=== PATIENT | male | born 1950 | race Caucasian/White ===

== ENCOUNTER 2021-11-17 15:39 | Outpatient (CLI) | payer OTHER, SELFPAY ==
--- NOTE | 2021-11-17 16:15 | CRLHL7_ITS ---
For Patients: As a result of the Century Cures Act, medical imaging exams and procedure reports are released immediately into your electronic medical record. You may view this report before your referring provider. If you have questions, please contact your health care provider. INDICATION: Low back pain. TECHNIQUE: Sagittal and axial T1, sagittal axial T2 and sagittal STIR images were obtained. COMPARISON: Previous lumbar spine MRI dated 11/30/2015. FINDINGS: Sagittal alignment of the lumbar spine within normal limits. Slight convex right lumbar curve. Multilevel mild spondylosis. The distal cord/conus medullaris normal in morphology and signal intensity and terminates normally at the L1 level. No posterior disc herniation or stenosis at the T10-11 or T11-12 levels. At T12-L1 degenerative narrowing of the disc space with anterior marginal osteophytes. No posterior disc herniation or stenosis the spinal canal or neural foramen. At L1-2 degenerative disc desiccation no posterior disc herniation or stenosis the spinal canal or neural foramen. At L2-3 degenerative disc desiccation. Mild posterior endplate spurring and disc bulge to the left without stenosis the spinal canal mild left neural foraminal narrowing. At L3-4 degenerative narrowing of the disc space. Mild disc bulging and marginal spurring and Schmorl`s node endplate changes without stenosis the spinal canal or neural foramen. At L4-5 degenerative disc desiccation mild disc space narrowing Schmorl`s node endplate changes mild facet hypertrophy no stenosis the spinal canal or neural foramen. At L5-S1 degenerative narrowing of the disc space and disc desiccation minor posterior annular bulge without stenosis the spinal canal or neural foramen. The included portions of the upper sacroiliac joints are unremarkable. IMPRESSION: 1. Mild multilevel lumbar spondylosis as described above. 2. Mild disc bulging and marginal spurring at each level between T12 and S1 without high-grade central or lateral stenosis. 3. Schmorl`s node endplate changes L3-4 and L4-5. No acute compression fractures. Dictated by Jose Ramon Raygoza MD @ 11/18/2021 1:55:06 PM (Electronically Signed)
== END 2021-11-17 15:40 | disposition home or self-care (01) ==
PROVIDERS: PCP Internal Medicine; Visit Provider Physical Medicine & Rehabilitation Pain Medicine
DX: M54.50 Low back pain, unspecified (principal); M47.816 Spondylosis without myelopathy or radiculopathy, lumbar region; M51.24 Other intervertebral disc displacement, thoracic region; M51.46 Schmorl's nodes, lumbar region
CPT/HCPCS: 72148

== ENCOUNTER 2022-01-12 06:59 | Outpatient (CLI) | payer OTHER, SELFPAY ==
--- NOTE | 2022-01-12 09:17 | W.ANESCHARGE ---
Anesthesia Charges Start Date/Time Anesthesia Start Date: 01/12/22 Anesthesia Start Time: 08:10 Stop Date/Time Anesthesia Stop Date: 01/12/22 Anesthesia Stop Time: 09:15 Summary Emergency: No Extremes of Age: Over 70-CPT 50952
--- NOTE | 2022-01-12 10:00 | W.ANESCHARGE ---
Anesthesia Charges Start Date/Time Anesthesia Start Date: 01/12/22 Anesthesia Start Time: 08:10 Stop Date/Time Anesthesia Stop Date: 01/12/22 Anesthesia Stop Time: 09:15 Summary Emergency: No Extremes of Age: Over 70-CPT 40265
== END 2022-01-12 07:00 | disposition home or self-care (01) ==
LOC: OP CLINIC 07:00
PROVIDERS: PCP Internal Medicine; Visit Provider Surgery
DX: Z12.11 Encounter for screening for malignant neoplasm of colon (principal); R10.32 Left lower quadrant pain; K64.9 Unspecified hemorrhoids; K63.5 Polyp of colon; K62.1 Rectal polyp; K57.30 Diverticulosis of large intestine without perforation or abscess without bleeding
CPT/HCPCS: 00811; 45385; 88305; 99100

== ENCOUNTER 2022-03-19 17:49 | Emergency (ER) | payer OTHER, SELFPAY ==
[2022-03-19 17:57] VITALS: BP 189/124; PULSE 109; RESP 24; TEMP 36.5; O2SAT 97; BMI 31.1
[2022-03-19] MEDS: IBUPROFEN 200 MG TABLET 400 MG PO (18:31)
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
--- NOTE | 2022-03-19 18:55 | ED.NURSE ---
[facility] EDT cleansed wounds with saline. covered with bacitracin, telfa and gauze to bilateral hands and back and top of head.
[2022-03-19 19:23] VITALS: BP 171/110; PULSE 97; O2SAT 99
== END 2022-03-19 20:22 | disposition home or self-care (01) ==
PROVIDERS: Emergency Provider Emergency Medicine; PCP Internal Medicine
DX: T23.202A Burn of second degree of left hand, unspecified site, initial encounter (principal); T23.201A Burn of second degree of right hand, unspecified site, initial encounter; T20.25XA Burn of second degree of scalp [any part], initial encounter; X00.0XXA Exposure to flames in uncontrolled fire in building or structure, initial encounter
CPT/HCPCS: 99283; 99284; A9270

== ENCOUNTER 2023-02-06 12:46 | Outpatient (CLI) | payer OTHER, SELFPAY ==
--- NOTE | 2023-02-06 13:00 | CRLHL7_ITS ---
For Patients: As a result of the Century Cures Act, medical imaging exams and procedure reports are released immediately into your electronic medical record. You may view this report before your referring provider. If you have questions, please contact your health care provider. Indication: Lumbar radicular pain Technique: Multiplanar, multisequence, MRI of the lumbar spine, obtained without contrast. Comparison: MRI lumbar spine 11/17/2021 Findings: The normal lumbar lordosis is preserved. No significant spondylolisthesis. Vertebral body heights are grossly maintained. No evidence of acute osseous abnormality. Scattered degenerative Schmorl`s nodes. Intrinsic bone marrow signal appears within normal limits. The conus medullaris terminates at approximately L1. No suspicious findings in the prevertebral and paraspinal soft tissues. Incidental bilateral renal cysts. Included SI joints are unremarkable. T12-L1: Mild diffuse disc bulge. No significant neural foraminal or spinal canal stenosis. L1-L2: No significant neural foraminal or spinal canal stenosis. L2-L3: Mild diffuse disc bulge, mild facet arthropathy. Mild left neural foraminal narrowing. No right neural foraminal or spinal canal stenosis. L3-L4: Mild diffuse disc bulge. No significant neural foraminal or spinal canal stenosis. L4-L5: Mild diffuse disc bulge, mild facet arthropathy. Mild right neural foraminal narrowing. No left neural foraminal or spinal canal stenosis. L5-S1: No significant neural foraminal or spinal canal stenosis. Impression: 1. Mild lumbar spondylosis, not significantly progressed relative to 11/17/2021. 2. Degenerative disc changes and facet arthropathy contribute to mild neural foraminal narrowing, without significant spinal canal stenosis. Dictated by Flaquita Luna MD @ 02/06/2023 1:48:22 PM (Electronically Signed)
== END 2023-02-06 12:47 | disposition home or self-care (01) ==
LOC: MRI 12:50
PROVIDERS: PCP Internal Medicine; Visit Provider Physical Medicine & Rehabilitation Pain Medicine
DX: M54.16 Radiculopathy, lumbar region (principal); M47.896 Other spondylosis, lumbar region; M51.36 Other intervertebral disc degeneration, lumbar region
CPT/HCPCS: 72148; 97110; 97112; 97140; 97162

== ENCOUNTER 2023-03-19 09:45 | Outpatient (RCR) | payer OTHER, SELFPAY | END 2023-05-30 07:43 | disposition home or self-care (01) | PROVIDERS: PCP Internal Medicine; Visit Provider Physical Medicine & Rehabilitation Pain Medicine | DX: M54.50 Low back pain, unspecified (principal); M54.16 Radiculopathy, lumbar region; Z51.89 Encounter for other specified aftercare | CPT/HCPCS: 97032; 97110; 97112; 97140; 97162 ==

== ENCOUNTER 2023-04-03 15:25 | Outpatient (CLI) | payer OTHER, SELFPAY ==
[2023-04-03 15:57] LABS: Creatinine* 0.9 mg/dL (0.5-1.5); Estimated Glomerular Filt Rate 91 ml/min
== END 2023-04-03 15:26 | disposition home or self-care (01) ==
LOC: CT 15:26
PROVIDERS: PCP Internal Medicine; Visit Provider Internal Medicine
DX: R10.9 Unspecified abdominal pain (principal); K43.9 Ventral hernia without obstruction or gangrene
CPT/HCPCS: 36415; 82565

== ENCOUNTER 2023-04-05 09:47 | Outpatient (CLI) | payer OTHER, SELFPAY ==
--- NOTE | 2023-04-05 09:55 | CRLHL7_ITS ---
For Patients: As a result of the Century Cures Act, medical imaging exams and procedure reports are released immediately into your electronic medical record. You may view this report before your referring provider. If you have questions, please contact your health care provider. INDICATION: Abdominal pain. TECHNIQUE: CT abdomen and pelvis acquired with 95 cc Isovue 370 IV contrast. COMPARISON: October 31, 2021. FINDINGS: Lower chest: Unremarkable. Liver: Unremarkable. Normal in size and attenuation. No suspicious masses. Gallbladder and bile ducts: Multiple small gallbladder stones. No sign of acute inflammation and no biliary dilatation. Pancreas: Unremarkable. No mass or inflammation. Spleen: Unremarkable. Normal in size. No masses. Adrenal glands: Unremarkable. No nodules. Kidneys: Unremarkable. No suspicious masses, stones, or hydronephrosis. GI tract: Unremarkable. Normal in caliber. No sign of mass or inflammation. Normal appendix. Vasculature: Abdominal aorta is normal in caliber. Mesenteric arteries are patent. Lymph nodes: No lymphadenopathy. Peritoneum/Abdominal Wall: Unremarkable. No sign of mass or infiltration. No free air or significant free fluid. Pelvis: Enlarged heterogeneous prostate gland. Fat containing right inguinal hernia extending into the scrotum, unchanged. Remainder of the pelvic structures are unremarkable. Bones: No suspicious bone lesions. IMPRESSION: 1. No acute or specific findings to explain abdominal pain. 2. Unchanged fat containing ventral hernia extending into the scrotum. 3. Persistent prostatomegaly. Please note that all CT scans at this facility use dose modulation, iterative reconstruction, and/or weight-based dosing when appropriate to reduce radiation dose to as low as reasonably achievable. Dictated by Patrick Peres MD @ 04/06/2023 11:05:52 AM (Electronically Signed)
== END 2023-04-05 09:48 | disposition home or self-care (01) ==
LOC: CT 09:50
PROVIDERS: PCP Internal Medicine; Visit Provider Internal Medicine
DX: R10.9 Unspecified abdominal pain (principal); K43.9 Ventral hernia without obstruction or gangrene; N40.0 Benign prostatic hyperplasia without lower urinary tract symptoms
CPT/HCPCS: 74177; Q9967

== ENCOUNTER 2023-07-27 09:09 | Outpatient (CLI) | payer MEDICARE, SELFPAY ==
--- NOTE | 2023-07-27 10:00 | W.ANESCHARGE ---
Anesthesia Charges Start Date/Time Anesthesia Start Date: 07/27/23 Anesthesia Start Time: 10:25 Stop Date/Time Anesthesia Stop Date: 07/27/23 Anesthesia Stop Time: 11:01 Summary Extremes of Age - Over 70 or under 1: MDA
--- NOTE | 2023-07-27 11:02 | W.ANESCHARGE ---
Anesthesia Charges Start Date/Time Anesthesia Start Date: 07/27/23 Anesthesia Start Time: 10:25 Stop Date/Time Anesthesia Stop Date: 07/27/23 Anesthesia Stop Time: 11:01
== END 2023-07-27 09:10 | disposition home or self-care (01) ==
LOC: OP CLINIC 09:10
PROVIDERS: PCP Internal Medicine; Visit Provider Internal Medicine
DX: R13.10 Dysphagia, unspecified (principal); Z86.010 Personal history of colon polyps; K64.8 Other hemorrhoids; K57.30 Diverticulosis of large intestine without perforation or abscess without bleeding
CPT/HCPCS: 00813; 43239; 45378; 88305; 99100; J2704

== ENCOUNTER 2023-09-11 07:01 | Outpatient (CLI) | payer MEDICARE, SELFPAY ==
--- OUTSIDE RECORDS SUMMARY | 2023-09-11 07:03 | XMS_ITS | Encounter Summary ---
Author Name [facility] [employer] Organization [facility] Address [address] [place] [address] Support Name Relationship Address Phone NIVIA GAITAN Next of Kin [address] [place] [address] ARNIE, NIVIA Emergency Contact [address] [place], [place] [id number] Insurance Providers: All historical and current Section Date Range: From patient's date of to the date document was created. This section includes the names of all active insurance providers for the patient. Insurance Provider Type of Coverage Plan Name Start of Policy Coverage End of Policy Coverage Group Number Member ID Insurance Provider's Telephone Number Policy Rodriguez's Name Patient's Relationship to Policy Rodriguez [facility] (WNR) MEDICARE ADVANTAGE [facility] ([facility]) May 07, 2018 [id number] [phone] ANJU BAIG PATIENT [employer] [facility] (WNR) MEDICARE ADVANTAGE [facility] ([facility]) May 07, 2021 [id number] [phone] ANJU BAIG PATIENT [employer] [facility] (WNR) MEDICARE ADVANTAGE [facility] (R) May 07, 2019 [id number] [phone] ANJU BAIG PATIENT [employer] [facility] (WNR) MEDICARE ADVANTAGE [facility] ([facility]) May 07, 2019 [id number] ANJU BAIG PATIENT [employer] [facility] (WNR) MEDICARE ADVANTAGE [facility] ([facility]) May 07, 2019 [id number] JVOANNI ANJU PATIENT Selected Encounter This section includes the information on record at [place] for the Encounter. Date/Time Encounter Type Encounter Description Reason Provider Source Jun 13, 2023 08:30 AM OFFICE O/P EST MOD 30 MIN PRIMARY CARE/MEDICINE ICD-10-CM Z00.8 Encounter for other general examination VIOLETA LOMBARDI Yec[place] Encounter Template Text not used by VA Assessments - Encounter Diagnoses This section includes the primary and secondary diagnoses documented for the Encounter. Date/Time Primary/Secondary Diagnosis Diagnosis Name Provider Source Jun 13, 2023 09:09 AM PRIMARY Encounter for other general examination VIOLETA LOMBARDI [facility] Jun 13, 2023 09:09 AM SECONDARY Encounter for immunization ELIZABETH CARRILLO [facility] Jun 13, 2023 09:09 AM SECONDARY Essential (primary) hypertension VIOLETA LOMBARDI [facility] Jun 13, 2023 09:09 AM SECONDARY Gastro-esophageal reflux dis with esophagitis, without bleed VIOLETA LOMBARDI [facility] Jun 13, 2023 09:09 AM SECONDARY Low back pain, unspecified VIOLETA LOMBARDI [facility] Plan of Treatment: Future Appointments (+ 6 months) and Future Tests (+/- 45 days) The Plan of Treatment section includes future care activities for the [facility] This section includes future appointments and future orders which are active, pending or scheduled. Future Appointments This section includes appointments that were scheduled to occur 6 months from the date of the Encounter, up to a maximum of 20 appointments. The data comes from all [place] treatment facilities. Appointment Date/Time Appointment Type Appointme nt Facility Name Jul 04, 2023 10:30 AM AMBULATORY - NONE [facility] Jul 13, 2023 10:00 AM AMBULATORY - NONE [facility] Lab Results: +/- 30 days of the encounter This section includes the Chemistry and Hematology Lab Results on record with NE for the patient. Radiology Reports and Pathology Reports are provided separately, in subsequent sections. Lab Results This section contains the Chemistry/Hematology Results that were resulted 30 days before or 30 daysafter the date of the Encounter. Date/Time Source Result Type Result - Unit Interpretation Reference Range Comment Jun 13, 2023 09:08 AM [facility] HEMOGLOBIN A1C Specimen Type: BLOOD Comment: Values obtained from A1C measurements can vary. For typical A1C assays, a reported value of 7.0 could actually be between 6.7 and 7.3 if measured by a reference method. A reported value of 9.0 could actually be between 8.7 and 9.3. Ref: http://www.ngs p.org/CAPdata. asp Ordering Provider: VIOLETA LOMBARDI Report Released Date/Time: Jun 13, 2023 09:00 AM Reporting Lab: [facility] [id number] Performing Lab: [facility] [id number] HEMOGLOBIN A1C 5.4 4.0-6.0 Jun 13, 2023 09:08 AM [facility] CBC & DIFF Specimen Type: BLOOD Comment: Automated Differential Performed Ordering Provider: VIOLETA LOMBARDI Report Released Date/Time: Jun 13, 2023 09:00 AM Reporting Lab: [facility] [id number] Performing Lab: [facility] [id number] WBC 7.58 4.0-11.0 RBC 5.02 4.6-6.2 HGB 15.5 13.5-17.9 HCT 44.2 41-54 MCV 88.0 80-100 MCH 30.9 27-33 MCHC 35.1 32.0-37.5 PLT 463 H 150-400 MPV 8.7 7.4-10.4 NEUT 64.7 40.0-80.0 LYMPHS 22.7 15.0-45.0 MONO 7.0 2.0-12.0 EOSINO 4.0 0.0-6.0 BASO 1.2 0.0-2.0 RDW 12.6 11.5-14.5 ABS LYMPH 1.72 1.0-4.0 ABS MONO 0.53 0.1-1.0 ABS NEUT 4.91 2.0-7.7 ABS EOS 0.30 0-0.5 ABS BASO 0.09 0-0.2 IG(META,MYELO,P RO) 0.4 ABS IMMATURE GRAN 0.03 0-0.1 Jun 13, 2023 09:08 AM [facility] COMPREHENSIVE METABOLIC PANEL+MG Specimen Type: PLASMA No comment entered. Ordering Provider: VIOLETA LOMBARDI Report Released Date/Time: Jun 13, 2023 09:00 AM Reporting Lab: [facility] [id number] Performing Lab: [facility] [id number] CREATININE 0.8 0.7-1.2 UREA NITROGEN 11 8-26 GLUCOSE 107 H 70-100 SODIUM 139 136-145 POTASSIUM 4.0 3.5-5.1 CHLORIDE 104 98-107 CO2 22 22-29 CALCIUM 9.4 8.4-10.2 PROTEIN,TOTAL 7.2 6.0-8.3 ALBUMIN 4.3 3.5-5.2 BILIRUBIN, TOTAL 0.5 0.2-1.2 MAGNESIUM 1.9 1.6-2.6 ANION GAP 13 5-15 ALKALINE PHOSPHATASE 69 40-150 ALT/SGPT 22 <55 AST/SGOT 17 <34 .CREAT EGFR(CKD-EPI) >90 >60 Vital Signs: All taken on the encounter date This section contains inpatient and outpatient Vital Signs collected on the date of the Encounter. Date/Time Temperature Pulse Blood Pressure Respiratory Rate SP02 Pain Height Weight Body Mass Index Source Jun 13, 2023 08:42 AM 97.7 72 137/84 16 98 0 64.5 195.3 33 [facility] Immunizations: All administered on the encounter date This section contains immunizations associated to the Encounter. Immunization Series Date Issued Reaction Comments COVID-19 (PFIZER), MRNA, LNP -S, PF, LEANA-SUCROSE, 30 MCG/0.3 ML (AGES 12+ YEARS) Jun 13, 2023 Social History: Smoking Status (Most current) and Tobacco Use (All prior to encounter date) This section includes the most current, and the historical, smoking and tobacco- related health factors from the NE facility where the Encounter took place. Current Smoking Status This section includes the most current smoking, or tobacco-related health factor, from the NE facility where the Encounter took place. Date/Time Current Smoking Status Comment Dafne ity Jun 13, 2023 08:30 AM VA-TOBACCO FORMER USER [facility] Tobacco Use History This section includes a history of the smoking, or tobacco-related health factors, that were collected on or before the date of the Encounter. The data comes from the NE facility where the Encounter took place. Date/Time Smoking Status/Tobacco Use Comment F acility Jun 13, 2023 08:30 AM VA-TOBACCO QUIT 15 YRS OR MORE [facility] Jun 05, 2022 08:30 AM VA-TOBACCO FORMER USER [facility] Jun 05, 2022 08:30 AM VA-TOBACCO QUIT 15 YRS OR MORE [facility] Jun 08, 2021 08:30 AM VA-TOBACCO FORMER USER [facility] Jun 08, 2021 08:30 AM VA-TOBACCO QUIT 15 YRS OR MORE [facility] Jun 11, 2020 10:00 AM VA-TOBACCO NEVER USED [facility] Jun 05, 2019 10:23 AM VA-TOBACCO FORMER USER [facility] Jun 05, 2019 10:23 AM VA-TOBACCO QUIT 15 YRS OR MORE [facility] Jun 26, 2018 09:55 AM VA-TOBACCO FORMER USER [facility] Jun 26, 2018 09:55 AM VA-TOBACCO QUIT 15 YRS OR MORE [facility] May 24, 2017 09:03 AM FORMER TOBACCO USER 7Y OR GREATE R [facility] Apr 19, 2016 04:36 AM FORMER TOBACCO USER 7Y OR GREATE R [facility] Apr 23, 2015 05:01 AM FORMER TOBACCO USER 7Y OR GREATE R [facility] Jun 15, 2014 10:00 AM FORMER TOBACCO USER 7Y OR GREATE R [facility] Advance Directives: All historical and current Section Date Range: From patient's date of to the date document was created. This section includes ALL of a patient's completed or amended VA Advance and Rescinded Directives. The entries below indicate that a directive exists for the patient, but an actual copy is not included with this document. The data comes from all [place] facilities. Date Advance Directives Provider Source September 22, 2021 ADVANCE DIRECTIVE RICHARD PLASCENCIA [facility] September 22, 2021 ADVANCE DIRECTIVE DISCUSSION ROBERTO PLASCENCIA [facility] Sep 01, 2016 ADVANCE DIRECTIVE DISCUSSION ROBERTO PLASCENCIA [facility] Sep 01, 2016 ADVANCE DIRECTIVE RICHARD PLASCENCIA [facility] Encounter Notes: All associated encounter notes This section contains the clinical notes associated to the Encounter. Date/Time Encounter Note(s) Provider Source Jun 14, 2023 08:17 AM LETTERS: LOCAL TITLE: FOLLOW UP RESULTS LETTER STANDARD TITLE: LETTERS DATE OF NOTE: JUN 14, 2023@08:17 ENTRY DATE: JUN 14, 2023@08:17:35 AUTHOR: JOSE LOMBARDI COSIGNER: URGENCY: STATUS: COMPLETED [facility] [address] [place] [address] Jun ANJU BAIG [id number] [address] [facility] [id number] Dear : I am writing to inform you of the results of testing that you had done recently at the [facility]. - Complete Blood Count (red/white blood cell counts and platelets) White count: WBC 7.58 (06/13/23) (normal is 4.0-11.0) Hemoglobin: HGB 15.5 (06/13/23) (normal Male is 13.5-17.9; Female is 11.5-16) Hematocrit: HCT 44.2 (06/13/23) (normal Male is 41-54; Female is 34.5-48) Platelets: PLT 463 H (06/13/23) (normal is 150-400) - Electrolytes including sodium and potassium SODIUM 139 (06/13/23) (normal is 136-145) POTASSIUM 4.0 (06/13/23) (normal is 3.5-5.1) - Calcium CALCIUM 9.4 (06/13/23) (normal is 8.5-10.1) - Kidney function CREATININE 0.8 (06/13/23)(normal Male = less than 1.2; normal Female = less than 1.0)) UREA NITROGEN 11 (06/13/23) (normal Male is 8-26; normal Female is 10-20) - Blood Sugar GLUCOSE 107 H (06/13/23) (normal is 70 - 100 if fasting) - Liver function Tests AST/SGOT 17 (06/13/23) (normal 15-37) ALT/SGPT 22 (06/13/23) (normal 13-61) ALK PHOSPHATASE 69 (06/13/23) (normal 45-117) BILIRUBIN, TOTAL 0.5 (06/13/23) (normal 0.2-1.0) - Hemoglobin A1C (normal 4.0-6.0) Collection DT Spec HGBA1C 06/13/2023 09:08 BLOOD 5.4 06/08/2021 09:18 BLOOD 5.6 07/15/2018 09:49 BLOOD 5.6 Additional Comments: Everything looks good. If you have any further questions or problems, please contact our nursing staff or provider at the following number: [phone]. Sincerely, JOSE LOMBARDI PHYSICIAN JO[facility] LOMBARDI [facility] Jun 13, 2023 09:10 AM MEDICATION MGT NOTE: LOCAL TITLE: MEDICATION RECONCILIATION NOTE STANDARD TITLE: MEDICATION MGT NOTE DATE OF NOTE: JUN 13, 2023@09:10 ENTRY DATE: JUN 13, 2023@09:10:32 AUTHOR: JOSE LOMBARDI EXP COSIGNER: URGENCY: STATUS: COMPLETED MEDICATION RECONCILIATION Active Outpatient Medications (excluding Supplies): Outpatient Medications Status ======= 1) AMLODIPINE BESYLATE 10MG TAB TAKE ONE-HALF TABLET BY PENDING MOUTH EVERY DAY FOR BLOOD PRESSURE 2) CARBOXYMETHYLCELLULOSE NA 0.5%(PF)OP FARIBA INSTILL 1 ACTIVE DROP IN BOTH EYES FOUR TIMES A DAY 3) IBUPROFEN 800MG TAB TAKE ONE TABLET BY MOUTH THREE PENDING TIMES A DAY NEEDED FOR PAIN -TAKE WITH FOOD 4) KETOTIFEN 0.025% OPH SOLN INSTILL 1 DROP IN BOTH EYES ACTIVE TWICE A DAY 5) PRAVASTATIN NA 40MG TAB TAKE ONE TABLET BY MOUTH AT PENDING BEDTIME FOR CHOLESTEROL - REPLACES ATORVASTATIN PRESCRIPTION Non-VA Medications Status ======= 1) Non-VA BUDESONIDE 32MCG 120D NASAL INHL 2 PUFFS EACH ACTIVE NOSTRIL NEEDED 6 Total Medications Medications listed above are accurate and should continue as ordered. /es/ JOSE LOMBARDI PHYSICIAN Signed: 06/13/2023 09:10 [facility] Jun 13, 2023 08:53 AM H & P NOTE: LOCAL TITLE: [facility] ANNUAL VISIT STANDARD TITLE: H & P NOTE DATE OF NOTE: JUN 13, 2023@08:53 ENTRY DATE: JUN 13, 2023@08:53:43 AUTHOR: JOSE LOMBARDI EXP COSIGNER: URGENCY: STATUS: COMPLETED Annual visit Non [place] [facility]iders: [facility] Chief complaint: Patient is here for a routine annual visit. HPI: patinet s doing well. NO new concrns. Is having rdaio ablation later this wek of low back nercs at [facility]. Assessment/Plan: 1. routine labs today 2. ophtho sees rgularly 3. dentist ses regularly 4. Audio bilata ides had th eleft one repaired recently 5. Medicaitosn reviewed, renewed Labs and medications reviewed with patient. Discussed plan of care, patient verbalized understanding and agrees with plan. FU in 1 year for annual exam, sooner with any concerns. Clinical Reminders: none Past Medical History: Computerized Problem List is the source for the followin. Pain in left knee (SNOMED CT [id number]) ACTIVE 2. Hyperlipidemia (SNOMED CT [id number]) ACTIVE 3. Screening for Malignant Neoplasms of colon ACTIVE colonoscopy 09/09--> hyperplastic polyp 4. Osteoarthritis, Knee ACTIVE 5. Dyslipidemia ACTIVE 6. Allergic rhinitis ACTIVE 7. Allergic asthma ACTIVE 8. Health maintenance alteration ACTIVE 9. Acute back pain with sciatica ACTIVE 10. Low back pain ACTIVE 11. Paresthesia of foot (SNOMED CT [id number]) ACTIVE 12. Schmorl's nodes of lumbar region ACTIVE 13. Plantar fasciitis of right foot ACTIVE 14. Tibialis posterior tendinitis ACTIVE 15. Enthesopathy of foot region ACTIVE 16. cervical laminoplasty ACTIVE 17. Gastro-esophageal reflux disease with esophagitis ACTIVE 18. 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 NEURO: neg for new motor or sensory complains SKIN: neg for new rash, lesion Physical Exam: Vitals: Blood Pressure: 137/84 (06/13/2023 08:42) Pulse: 72 (06/13/2023 08:42) Pulse Oximetry: 98% (06/13/2023 08:42) Resp: 16 (06/13/2023 08:42) Temp: 97.7 F [36.5 C] (06/13/2023 08:42) Height: 64.5 in [163.8 cm] (06/13/2023 08:42) Weight: 195.3 lb [88.59 kg] (06/13/2023 08:42) BMI:33.1 GENERAL:well developed, well nourished pt in nad. EYES:PERRLA,EOMI, conjuntiva clear, no discharge,wears glasses. EARS:canals clear, TMs intact NOSE:Nostrils patent, no discharge, THROAT:No enlarged tonsils, no inflammation, no exudate or ulcers. NECK: supple, no obvious thyromegaly HEART:Regular rate and rhythm , no obvious murmurs/rubs RESPIRATORY: Lungs clear to auscultation b/l, no rales or wheezes. ABDOMEN:soft, nontender, nondistended, no organomegaly, normal bs. MSK:normal gait, moves all extremities, no joints swelling, rom normal. NEURO:alert and oriented, cranial nerves II-XII intact, speech clear, strength equal b/l, normal gait and movement, PSYCH: normal affect, well groomed SKIN:warm adn dry, normal color, no rash or suspicious lesions, multipel flat freckes in neck region EXT: no cyanosis, no edema lower ext b/l Allergies: INFLUENZA (September 20, 2004) MORPHINE (Nov 14, 2006) SULFA DRUGS (Nov 14, 2006) PENICILLIN (Nov 20, 2006) SLT - Lab Tests Selected No data available for: REGIONAL ALLERGY PROFILE Vaccinations: IM - Immunizations ADMINISTERED Immunization Series Date Facility Reaction Info COVID-19 ([employer] [employer]), MRNA, LNP-S, * 1 06/05/2022 [place] * COVID-19 (PFIZER), MRNA, LNP-S, * 3 03/11/2021 [place]* <C> COVID-19 (PFIZER), MRNA, LNP-S, * 2 07/07/2020 [place]* <C> COVID-19 (PFIZER), MRNA, LNP-S, * 1 06/16/2020 [place]* <C> COVID-19 (PFIZER), MRNA, LNP-S, * 4 09/20/2021 [place] * <C> INFLUENZA (HISTORICAL) [place]* INFLUENZA, HIGH DOSE SEASONAL 02/10/2020 [facility] [facility] INFLUENZA, HIGH DOSE SEASONAL 02/10/2019 [facility] [facility] INFLUENZA, HIGH DOSE SEASONAL 02/08/2018 [facility] [facility] INFLU[place], HIGH DOSE SEASONAL 03/02/2017 [facility] [facility] INFLUENZA, HIGH DOSE SEASONAL 02/27/2017 [facility] [facility] INFLUENZA, HIGH DOSE SEASONAL 03/14/2016 [facility] [facility] INFLUENZA, HIGH-DOSE, QUADRIVALE* 03/26/2023 [facility] [facility] INFLUENZA, HIGH-DOSE, QUADRIVALE* 01/26/2021 No Site <C> INFLUENZA, INJECTABLE, QUADRIVAL* 04/08/2009 [facility] [facility] INFLUENZA, UNSPECIFIED FORMULATI* [place]* INFLUENZA, UNSPECIFIED FORMULATI* 02/10/2020 [place]* NOVEL [id number], ALL FOR* 04/08/2009 [facility] [facility] PNEUMOCOCCAL CONJUGATE PCV 13 06/15/2016 [facility] [facility] PNEUMOCOCCAL CONJUGATE PCV 13 [place]* PNEUMOCOCCAL POLYSACCHARIDE PPV23 06/22/2022 [place] * PNEUMOCOCCAL POLYSACCHARIDE PPV23 No Site <C> PNEUMOCOCCAL POLYSACCHARIDE PPV23 07/02/2014 [facility] [facility] PNEUMOCOCCAL POLYSACCHARIDE PPV23 05/29/2000 [facility] [facility] TD(ADULT) UNSPECIFIED FORMULATION [place]* TDAP 06/15/2016 [place]* TDAP Private m* ZOSTER LIVE [employer]* ZOSTER RECOMBINANT 2 09/18/2018 [place] * ZOSTER RECOMBINANT 1 07/15/2018 [place] * CONTRAINDICATED No data available REFUSED ======= No data available <C> See the Detailed Immunizations Health Summary Component[DIM] for Comments * Value is truncated; see the Detailed Immunizations Health Summary Component [DIM] for complete text ====== Labs: pending /jody/ JOSE LOMBARDI PHYSICIAN Signed: 06/13/2023 09:10 [facility] Jun 13, 2023 08:44 AM PRIMARY CARE NURSING NOTE: LOCAL TITLE: [facility] NURSING PROGRESS NOTE STANDARD TITLE: PRIMARY CARE NURSING NOTE DATE OF NOTE: JUN 13, 2023@08:44 ENTRY DATE: JUN 13, 2023@08:44:43 AUTHOR: ELIZABETH CARRILLO EXP COSIGNER: URGENCY: STATUS: COMPLETED TYPE OF VISIT: Appointment Check In Type of appointment: In-person appointment REASON FOR VISIT: Annual ALLERGIES: INFLUENZA (September 20, 2004) MORPHINE (Nov 14, 2006) SULFA DRUGS (Nov 14, 2006) PENICILLIN (Nov 20, 2006) VITAL SIGNS: Blood Pressure: 137/84 (06/13/2023 08:42) Pulse: 72 (06/13/2023 08:42) Respiration: 16 (06/13/2023 08:42) Temperature: 97.7 F [36.5 C] (06/13/2023 08:42) Weight: 195.3 lb [88.59 kg] (06/13/2023 08:42) Height: 64.5 in [163.8 cm] (06/13/2023 08:42) BMI: 33.1 O2 Sat: 98% (06/13/2023 08:42) Pain: 0 (06/13/2023 08:42) PAIN SCREEN: Patient is not having significant pain that they wish to discuss with their provider today. MEDICATION Active Outpatient Medications (including Supplies): CARBOXYMETHYLCELLULOSE NA 0.5%(PF)OP FARIBA INSTILL 1 DROP IN ACTIVE BOTH EYES FOUR TIMES A DAY KETOTIFEN 0.025% OPH SOLN INSTILL 1 DROP IN BOTH EYES ACTIVE TWICE A DAY Non-VA BUDESONIDE 32MCG 120D NASAL INHL 2 PUFFS EACH ACTIVE NOSTRIL NEEDED Over the Counter/Herbal Medications: The patient states that they take some outside medications and/or herbals. ADV DIR Notification and Screening: ADVANCE DIRECTIVE NOTIFICATION: Patient was given written notification of the following rights: 1. Accept or refuse any medical treatment. 2. Complete a durable power of attorney law clerk for health care. 3. Complete a living will. ADVANCE DIRECTIVE SCREENING: Does patient have an Advance Directive? The patient has an Advance Directive. Does the patient wish to make any changes or revoke their current Advance Directive? No changes requested at this time. Suicide Screen: C-SSRS Screening [place] Suicide Severity Rating Scale (C-SSRS) screener 1. Over the past month, have you wished you were or wished you could go to sleep and not wake up? No 2. Over the past month, have you had any actual thoughts of killing yourself? No 3. Over the past month, have you been thinking about how you might do this? Response not required due to responses to other questions. 4. Over the past month, have you had these thoughts and had some intention of acting on them? Response not required due to responses to other questions. 5. Over the past month, have you started to work out or worked out the details of how to kill yourself? Response not required due to responses to other questions. 6. If yes, at any time in the past month did you intend to carry out this plan? Response not required due to responses to other questions. 7. In your lifetime, have you ever done anything, started to do anything, or prepared to do anything to end your life (for example, collected pills, obtained a gun, gave away valuables, went to the roof but didn't jump)? No 8. If YES, was this within the past 3 months? Response not required due to responses to other questions. Depression Screening: Perform PHQ-2 A PHQ-2 screen was performed. The score was 0 which is a negative screen for depression. Over the past two weeks, how often have you been bothered by the following problems? 1. Little interest or pleasure in doing things Not at all 2. Feeling down, depressed, or hopeless Not at all Alcohol Use Screen (AUDIT-C): Alcohol Screen: SCREEN FOR ALCOHOL (AUDIT-C) An alcohol screening test (AUDIT-C) was negative (score=2). 1. How often did you have a drink containing alcohol in the past year? Consider a drink to be a 12 ounce can or bottle of regular beer, 8 ounces of malt liquor, a 5 ounce glass of table wine, or a 1.5 ounce shot of liquor (like scotch, gin, or vodka). Two to four times a month 2. How many drinks containing alcohol did you have on a typical day when you were drinking in the past year? One or two drinks 3. How often did you have six or more drinks on one occasion in the past year? Never Tobacco Use Screening: The patient is a former tobacco user. The patient quit fifteen or more years ago. 24yrs Nursing Annual Screening: Fall History Screen During the past 12 months, have you had any falls? Patient does not report any falls in the past 12 months. MEDICATIONS: Patient does not have an active prescription for one of the following medications: Antihypertensives, Antidepressants, Antipsychotics, Diuretics, or Opioid Analgesics (Contolled Substance medications used for pain). Script Talk Screen Are you able to read your prescription bottles with your glasses, magnifiers or other aids? Yes or patient not taking any prescriptions. Skin Screen Patient reports any current pressure ulcers, a history of pressure ulcers, or a wound from a medical dermatologist or Patient is bed-confined or a wheelchair-user or Patient requires assistance to transfer/change position No, Skin Screen is Negative Home Abuse/Violence Screen Is your home free of abuse and violence? Yes MOVE! Program Screen Body Mass Index (BMI)= 33.1 [place]: Collection DT Specimen Test Name Result Units Ref Range 06/08/2021 09:18 BLOOD HEMOGLOBIN A1C 5.6 % 4.0 - 6.0 [place] Hgb A1C: No data available [place] Hgb A1C: No data available Point of Care Hgb A1C: POC HGB A1C____ Outpatient Nutrition Screen Body Mass Index (BMI)= 33.1 [place]: Collection DT Specimen Test Name Result Units Ref Range 06/08/2021 09:18 BLOOD HEMOGLOBIN A1C 5.6 % 4.0 - 6.0 [place] Hgb A1C: No data available [place] Hgb A1C: No data available Point of Care Hgb A1C: POC HGB A1C____ Is patient's BMI less than 18.5? No Does patient have swallowing, coughing, or chewing problems affecting oral intake? Yes Has patient experienced unplanned weight loss or gain greater than 10 pounds over the last 2 months? No Is patient's Hgb A1C (Glycosylated Hemoglobin) greater than 9.5? Information not available Is patient receiving Total Parenteral Nutrition (TPN) or Tube Feedings? No Patient Health Education Screen BARRIERS/SPECIAL NEEDS: Hearing limitations Visual limitations PREFERRED STYLE OF LEARNING: Watching something Listening Reading Client Assistive Service (JESSICA) Screen Does the patient require assistance with outpatient visit? No Homelessness/Food Insecurity Screen: In the past 2 months, have you been living in stable housing that you own, rent, or stay in as part of a household? Yes - Living in stable housing. Are you worried or concerned that in the next 2 months you may NOT have stable housing that you own, rent, or stay in as part of a household? No - Not worried about housing near future [facility] reports the following: Within the past 12 months, you worried whether your food would run out before you got money to buy more. Never true Within the past 12 months, the food you bought just didn't last and you didn't have money to get more. 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 The patient was advised to remain in the facility for 15 minutes post vaccination. /jody/ SUMANTH ANGELA LPN [facility] Signed: 06/13/2023 08:54 ELIZABETH CARRILLO [facility]
--- OUTSIDE RECORDS SUMMARY | 2023-09-11 07:03 | XMS_ITS | Continuity of Care Document ---
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 It does not include entries that were removed or entered in error. Problem Status Onset Date Problem Type Date of Resolution Comments Source Acute back pain with sciatica Active Condition [facility] Allergic asthma Active Condition [facility] Allergic rhinitis Active Condition [facility] cervical laminoplasty Active Condition [facility] Dyslipidemia Active Condition [facility] Enthesopathy of foot region Active Condition [facility] Essential hypertension Active [facility] Gastro-esophageal reflux disease with esophagitis Active Condition [facility] Health maintenance alteration Active Condition [facility] Hyperlipidemia (SNOMED CT 30344482) Active Condition [facility] Low back pain Active Condition [facility] Osteoarthritis, Knee Active Condition [facility] Pain in left knee (SNOMED CT 625047515348153) Active Condition [facility] Paresthesia of foot (SNOMED CT 239394581) Active Condition [facility] Plantar fasciitis of right foot Active Condition [facility] Schmorl's nodes of lumbar region Active Condition [facility] Screening for Malignant Neoplasms of colon Active Condition Nov 29, 2006 Entered By: FLAVIA ART Comment: colonoscopy 09/09--> hyperplastic polyp [facility] Tibialis posterior tendinitis Active Condition [facility] Diagnosis: ICD-10-CM M25.375 Other instability, left foot Active Diagnosis [facility] Diagnosis: ICD-10-CM Z00.8 Encounter for other general examination Active Diagnosis [facility] Diagnosis: ICD-10-CM M25.374 Other instability, right foot Active Diagnosis [facility] Diagnosis: ICD-10-CM L60.0 Ingrowing nail Active Diagnosis [facility] Diagnosis: ICD-10-CM H04.123 Dry eye syndrome of bilateral lacrimal glands Active Diagnosis [facility] Diagnosis: ICD-10-CM Z71.9 Counseling, unspecified Active Diagnosis [facility] Diagnosis: ICD-10-CM S62.665D Nondisp fx of dist phalanx of l rng fngr, 7thD Active Diagnosis [facility] Diagnosis: ICD-10-CM S62.605A Fracture of unsp phalanx of left ring finger, init Active Diagnosis [facility] Diagnosis: ICD-10-CM M25.569 Pain in unspecified knee Active Diagnosis [facility] Diagnosis: ICD-10-CM Z23 Encounter for immunization Active Diagnosis [facility] Medications Combined list of outpatient medications from Department of Defense and Veterans Affairs facilities.Medications provided include 1) outpatient medications from the last 15 months, and 2) patient-reported medications. Medication Details Route Status Patient Instructions Prescription Expires Prescription Number Last Dispense Date Ordering Provider Order Date Order Qty Source AMLODIPINE BESYLATE 10MG TAB TAKE ONE-HALF TABLET BY MOUTH EVERY DAY FOR BLOOD PRESSURE ORALLY ACTIVE 06/13/2024 [id number] 4 JOSE LOMBARDI 2023 45 [facility] AMLODIPINE BESYLATE 10MG TAB TAKE ONE-HALF TABLET BY MOUTH EVERY DAY FOR BLOOD PRESSURE ORALLY DISCONT INUED 06/06/2023 [id number] 3 JOSE LOMBARDI 2022 45 [facility] BUDESONIDE 32MCG/ACTUA T INHL,NASAL, 8.43GM SPRAY 2 PUFFS IN EACH NOSTRIL PRN NASAL ACTIVE JOSE G ART 2006 [facility] CARBOXYMETH YLCELLULOSE NA 0.5% (PF) SOLN,OPH,0. 4ML INSTILL 1 DROP IN BOTH EYES FOUR TIMES A DAY BOTH EYES ACTIVE 04/19/2024 [id number] 4 Jordon BAXTER 2022 30 [facility] CARBOXYMETH YLCELLULOSE NA 0.5% (PF) SOLN,OPH,0. 4ML INSTILL 1 DROP IN BOTH EYES FOUR TIMES A DAY BOTH EYES DISCONT INUED 04/25/2023 [id number] 3 CARMELITAAGUILERA OLL D 2021 30 [place] IBUPROFEN 800MG TAB TAKE ONE TABLET BY MOUTH THREE TIMES A DAY NEEDED FOR PAIN -TAKE WITH FOOD ORALLY ACTIVE 06/13/2024 [id number] 4 JOSE LOMBARDI 2023 270 [facility] IBUPROFEN 800MG TAB TAKE ONE TABLET BY MOUTH THREE TIMES A DAY NEEDED FOR PAIN -TAKE WITH FOOD ORALLY DISCONT INUED 06/06/2023 [id number] 3 JOSE LOMBARDI 2022 270 [facility] KETOTIFEN 0.025% SOLN,OPH INSTILL 1 DROP IN BOTH EYES TWICE A DAY BOTH EYES ACTIVE 04/19/2024 [id number] 4 Jordon BAXTERORY B 2022 15 [place] [facility] KETOTIFEN 0.025% SOLN,OPH INSTILL 1 DROP IN BOTH EYES TWICE A DAY BOTH EYES DISCONT INUED 04/25/2023 [id number] 3 CARMELITAAGUILERA OLL D 2021 15 [place] [facility] PRAVASTATIN NA 40MG TAB TAKE ONE TABLET BY MOUTH AT BEDTIME FOR CHOLESTE ROL - REPLACES ATORVAST ATIN PRESCRIP TION ORALLY ACTIVE 06/13/2024 [id number] 4 JOSE LOMBARDI 2023 30 [facility] PRAVASTATIN NA 40MG TAB TAKE ONE TABLET BY MOUTH AT BEDTIME FOR CHOLESTE ROL - REPLACES ATORVAST ATIN PRESCRIP TION ORALLY DISCONT INUED 06/06/2023 [id number] 3 JOSE LOMBARDI 2022 30 [facility] Allergies, Adverse Reactions, Alerts Combined list of allergies from Department of Defense and Veterans Affairs facilities. It does not include entries that were removed or entered in error. Substance Category Reaction Severity Reaction type Status Date Reported Comments Source INFLUENZA Propensity to adverse reactions to drug (finding) HIVES active 5 [facility] MORPHINE Propensity to adverse reactions to drug (finding) Finding of vomiting active 7 [facility] PENICILLIN Propensity to adverse reactions to drug (finding) Eruption active 7 [facility] SULFA DRUGS Propensity to adverse reactions to drug (finding) Eruption active 7 [facility] Immunizations Combined list of available immunizations from the Department of Defense and Veterans Affairs facilities. 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 Comments Source COVID-19 (Newco LS15), MRNA, LNP-S, PF, LEANA-SUCROSE, 30 MCG/0.3 ML (AGES 12+ YEARS) 2023 ELIZABETH CARRILLO LEFT DELTO ID [id number] 309 complet ed [facility] INFLUENZA, HIGH-DOSE, QUADRIVALENT 2022 197 complet ed [facility] PNEUMOCOCCAL POLYSACCHARID E PPV23 2022 ELIZABETH CARRILLO LEFT DELTO ID [id number] 33 complet ed [facility] COVID-19 (Newco LS15), MRNA, LNP-S, BIVALENT BOOSTER, PF, 30 MCG/0.3 ML DOSE 1 2022 ELIZABETH CARRILLO LEFT DELTO ID [id number] 300 complet ed [facility] INFLUENZA, UNSPECIFIED FORMULATION 2021 88 complet ed [facility] COVID-19 (PFIZER), MRNA, LNP-S, PF, 30 MCG/0.3 ML DOSE, LEANA-SUCROSE (AGES 12+ YEARS) 4 2021 217 complet ed PFR; [id number]; 2 [facility] COVID-19 (Newco LS15), MRNA, LNP-S, PF, 30 MCG/0.3 ML DOSE 3 2020 208 complet ed PFR; [id number]; 2 [facility] INFLUENZA, HIGH-DOSE, QUADRIVALENT 2020 197 complet ed Partner:Dina PEREYRA.Admin istered by:[facility] [id number].( [id number] [phone]).[facility]:[phone] .Address: [address] [place] [address].[facility].5 [id number] Dosage: ML 0.7 [facility] COVID-19 (PFIZER), MRNA, LNP-S, PF, 30 MCG/0.3 ML DOSE 2 2020 208 complet ed PFR; [id number]; 1 [facility] COVID-19 (PFIZER), MRNA, LNP-S, PF, 30 MCG/0.3 ML DOSE 1 2020 208 complet ed PFR; [id number]; 1 [facility] INFLUENZA, HIGH DOSE SEASONAL 2019 135 complet ed [facility] INFLUENZA, UNSPECIFIED FORMULATION 2019 88 complet ed [facility] INFLUENZA, HIGH DOSE SEASONAL 2018 135 complet ed [facility] ZOSTER RECOMBINANT 2 2018 187 complet ed [facility] ZOSTER RECOMBINANT 1 2018 187 complet ed [facility] INFLUENZA, HIGH DOSE SEASONAL 2017 135 complet ed [facility] INFLUENZA, HIGH DOSE SEASONAL 2016 135 complet ed [facility] INFLUENZA, HIGH DOSE SEASONAL 2016 135 complet ed [facility] PNEUMOCOCCAL CONJUGATE PCV 13 2016 133 complet ed [facility] TDAP 2016 115 complet ed [facility] INFLUENZA, HIGH DOSE SEASONAL 2015 135 complet ed [facility] PNEUMOCOCCAL CONJUGATE PCV 13 2014 133 complet ed [facility] PNEUMOCOCCAL POLYSACCHARID E PPV23 2014 33 complet ed [facility] PNEUMOCOCCAL POLYSACCHARID E PPV23 2014 33 complet ed [facility] TDAP 2012 115 complet ed [facility] ZOSTER LIVE 2010 121 complet ed [facility] INFLUENZA, INJECTABLE, QUADRIVALENT, PRESERVATIVE FREE 2008 150 complet ed [facility] NOVEL INFLUENZA-H1N 1-09, ALL FORMULATIONS 2008 128 complet ed [facility] INFLUENZA (HISTORICAL) 2002 88 complet ed [facility] PNEUMOCOCCAL POLYSACCHARID E PPV23 2000 33 complet ed [facility] TD(ADULT) UNSPECIFIED FORMULATION 1997 139 complet ed [facility] Results Combined list of recent chemistry, hematology and other laboratory results from Department of Defense and Veterans Affairs, ranging from 15 months to all on record, depending upon the facility. Order Name Results Value Reference Range Date Interpretation Specimen Comments Source HEMOGLOBI N A1C HEMOGLOBIN A1C/HEMOGLO BIN.TOTAL IN BLOOD 5.4 4.0 - 6.0 06/13 Specimen Type: BLOOD Comment: Values obtained from A1C measurement s can vary. For typical A1C assays, a reported value of 7.0 could actually be between 6.7 and 7.3 if measured by a reference method. A reported value of 9.0 could actually be between 8.7 and 9.3. Ref: http://www. ngsp.org/[place] Pdata.asp Ordering Provider: HAYDEE LOMBARDI Report Released Date/Time: Jun 13, 2023 09:00 AM Reporting Lab: [facility] [address] Performing Lab: [facility] [address] [facility] CBC & DIFF LEUKOCYTES [#/VOLUME] IN BLOOD BY AUTOMATED COUNT 7.58 4.0 - 11.0 06/13 Specimen Type: BLOOD Comment: Automated Differentia l Performed Ordering Provider: HAYDEE LOMBARDI Report Released Date/Time: Jun 13, 2023 09:00 AM Reporting Lab: [facility] [address] Performing Lab: [facility] [address] [facility] CBC & DIFF ERYTHROCYTE S [#/VOLUME] IN BLOOD BY AUTOMATED COUNT 5.02 4.6 - 6.2 06/13 Specimen Type: BLOOD Comment: Automated Differentia l Performed Ordering Provider: HAYDEE LOMBARDI Report Released Date/Time: Jun 13, 2023 09:00 AM Reporting Lab: [facility] [address] Performing Lab: [facility] [address] [facility] CBC & DIFF HEMOGLOBIN [MASS/VOLUM E] IN BLOOD 15.5 13.5 - 17.9 06/13 Specimen Type: BLOOD Comment: Automated Differentia l Performed Ordering Provider: HAYDEE LOMBARDI Report Released Date/Time: Jun 13, 2023 09:00 AM Reporting Lab: [facility] [address] Performing Lab: [facility] [address] [facility] CBC & DIFF HEMATOCRIT [VOLUME FRACTION] OF BLOOD BY AUTOMATED COUNT 44.2 41 - 54 06/13 Specimen Type: BLOOD Comment: Automated Differentia l Performed Ordering Provider: HAYDEE LOMBARDI Report Released Date/Time: Jun 13, 2023 09:00 AM Reporting Lab: [facility] [address] Performing Lab: [facility] [address] [facility] CBC & DIFF MCV [ENTITIC VOLUME] BY AUTOMATED COUNT 88.0 80 - 100 06/13 Specimen Type: BLOOD Comment: Automated Differentia l Performed Ordering Provider: HAYDEE LOMBARDI Report Released Date/Time: Jun 13, 2023 09:00 AM Reporting Lab: [facility] [address] Performing Lab: [facility] [address] [facility] CBC & DIFF MCH [ENTITIC MASS] BY AUTOMATED COUNT 30.9 27 - 33 06/13 Specimen Type: BLOOD Comment: Automated Differentia l Performed Ordering Provider: AHYDEE LOMBARDI Report Released Date/Time: Jun 13, 2023 09:00 AM Reporting Lab: [facility] [address] Performing Lab: [facility] [address] [facility] CBC & DIFF MCHC [MASS/VOLUM E] BY AUTOMATED COUNT 35.1 32.0 - 37.5 06/13 Specimen Type: BLOOD Comment: Automated Differentia l Performed Ordering Provider: HAYDEE LOMBARDI Report Released Date/Time: Jun 13, 2023 09:00 AM Reporting Lab: [facility] [address] Performing Lab: [facility] [address] [facility] CBC & DIFF PLATELETS [#/VOLUME] IN BLOOD BY AUTOMATED COUNT 463 150 - 400 06/13 H Specimen Type: BLOOD Comment: Automated Differentia l Performed Ordering Provider: HAYDEE LOMBARDI Report Released Date/Time: Jun 13, 2023 09:00 AM Reporting Lab: [facility] [address] Performing Lab: [facility] [address] [facility] CBC & DIFF PLATELET MEAN VOLUME [ENTITIC VOLUME] IN BLOOD BY AUTOMATED COUNT 8.7 7.4 - 10.4 06/13 Specimen Type: BLOOD Comment: Automated Differentia l Performed Ordering Provider: HAYDEE LOMBARDI Report Released Date/Time: Jun 13, 2023 09:00 AM Reporting Lab: [facility] [address] Performing Lab: [facility] [address] [facility] CBC & DIFF NEUTROPHILS /100 LEUKOCYTES IN BLOOD BY MANUAL COUNT 64.7 40.0 - 80.0 06/13 Specimen Type: BLOOD Comment: Automated Differentia l Performed Ordering Provider: HAYDEE LOMBARDI Report Released Date/Time: Jun 13, 2023 09:00 AM Reporting Lab: [facility] [address] Performing Lab: [facility] [address] [facility] CBC & DIFF LYMPHOCYTES /100 LEUKOCYTES IN BLOOD BY MANUAL COUNT 22.7 15.0 - 45.0 06/13 Specimen Type: BLOOD Comment: Automated Differentia l Performed Ordering Provider: HAYDEE LOMBARDI Report Released Date/Time: Jun 13, 2023 09:00 AM Reporting Lab: [facility] [address] Performing Lab: [facility] [address] [facility] CBC & DIFF MONOCYTES/1 00 LEUKOCYTES IN BLOOD BY AUTOMATED COUNT 7.0 2.0 - 12.0 06/13 Specimen Type: BLOOD Comment: Automated Differentia l Performed Ordering Provider: HAYDEE OLMBARDI Report Released Date/Time: Jun 13, 2023 09:00 AM Reporting Lab: [facility] [address] Performing Lab: [facility] [address] [facility] CBC & DIFF EOSINOPHILS /100 LEUKOCYTES IN BLOOD BY AUTOMATED COUNT 4.0 0.0 - 6.0 06/13 Specimen Type: BLOOD Comment: Automated Differentia l Performed Ordering Provider: HAYDEE LOMBARDI Report Released Date/Time: Jun 13, 2023 09:00 AM Reporting Lab: [facility] [address] Performing Lab: [facility] [address] [facility] CBC & DIFF BASOPHILS/1 00 LEUKOCYTES IN BLOOD BY MANUAL COUNT 1.2 0.0 - 2.0 06/13 Specimen Type: BLOOD Comment: Automated Differentia l Performed Ordering Provider: HAYDEE LOMBARDI Report Released Date/Time: Jun 13, 2023 09:00 AM Reporting Lab: [facility] [address] Performing Lab: [facility] [address] [facility] CBC & DIFF ERYTHROCYTE DISTRIBUTIO N WIDTH [RATIO] BY AUTOMATED COUNT 12.6 11.5 - 14.5 06/13 Specimen Type: BLOOD Comment: Automated Differentia l Performed Ordering Provider: HAYDEE LOMBARDI Report Released Date/Time: Jun 13, 2023 09:00 AM Reporting Lab: [facility] [address] Performing Lab: [facility] [address] [facility] CBC & DIFF LYMPHOCYTES [#/VOLUME] IN BLOOD BY AUTOMATED COUNT 1.72 1.0 - 4.0 06/13 Specimen Type: BLOOD Comment: Automated Differentia l Performed Ordering Provider: HAYDEE LOMBARDI Report Released Date/Time: Jun 13, 2023 09:00 AM Reporting Lab: [facility] [address] Performing Lab: [facility] [address] [facility] CBC & DIFF MONOCYTES [#/VOLUME] IN BLOOD BY AUTOMATED COUNT 0.53 0.1 - 1.0 06/13 Specimen Type: BLOOD Comment: Automated Differentia l Performed Ordering Provider: HAYDEE LOMBARDI Report Released Date/Time: Jun 13, 2023 09:00 AM Reporting Lab: [facility] [address] Performing Lab: [facility] [address] [facility] CBC & DIFF NEUTROPHILS [#/VOLUME] IN BLOOD BY AUTOMATED COUNT 4.91 2.0 - 7.7 06/13 Specimen Type: BLOOD Comment: Automated Differentia l Performed Ordering Provider: HAYDEE LOMBARDI Report Released Date/Time: Jun 13, 2023 09:00 AM Reporting Lab: [facility] [address] Performing Lab: [facility] [address] [facility] CBC & DIFF EOSINOPHILS [#/VOLUME] IN BLOOD BY AUTOMATED COUNT 0.30 0 - 0.5 06/13 Specimen Type: BLOOD Comment: Automated Differentia l Performed Ordering Provider: HAYDEE LOMBARDI Report Released Date/Time: Jun 13, 2023 09:00 AM Reporting Lab: [facility] [address] Performing Lab: [facility] [address] [facility] CBC & DIFF BASOPHILS [#/VOLUME] IN BLOOD BY AUTOMATED COUNT 0.09 0 - 0.2 06/13 Specimen Type: BLOOD Comment: Automated Differentia l Performed Ordering Provider: HAYDEE LOMBARDI Report Released Date/Time: Jun 13, 2023 09:00 AM Reporting Lab: [facility] [address] Performing Lab: [facility] [address] [facility] CBC & DIFF IG(META,MYE LO,PRO) 0.4 06/13 Specimen Type: BLOOD Comment: Automated Differentia l Performed Ordering Provider: HAYDEE LOMBARDI Report Released Date/Time: Jun 13, 2023 09:00 AM Reporting Lab: [facility] [address] Performing Lab: [facility] [address] [facility] CBC & DIFF IMMATURE GRANULOCYTE S [PRESENCE] IN BLOOD BY AUTOMATED COUNT 0.03 0 - 0.1 06/13 Specimen Type: BLOOD Comment: Automated Differentia l Performed Ordering Provider: HAYDEE LOMBARDI Report Released Date/Time: Jun 13, 2023 09:00 AM Reporting Lab: [facility] [address] Performing Lab: [facility] [address] [facility] COMPREHEN SIVE METABOLIC PANEL+MG CREATININE [MASS/VOLUM E] IN SERUM OR PLASMA 0.8 0.7 - 1.2 06/13 Specimen Type: PLASMA No comment entered. Ordering Provider: HAYDEE LOMBARDI Report Released Date/Time: Jun 13, 2023 09:00 AM Reporting Lab: [facility] [address] Performing Lab: [facility] [address] [facility] COMPREHEN SIVE METABOLIC PANEL+MG UREA NITROGEN [MASS/VOLUM E] IN SERUM OR PLASMA 11 8 - 26 06/13 Specimen Type: PLASMA No comment entered. Ordering Provider: HAYDEE LOMBARDI Report Released Date/Time: Jun 13, 2023 09:00 AM Reporting Lab: [facility] [address] Performing Lab: [place] [phone] [facility] COMPREHEN SIVE METABOLIC PANEL+MG GLUCOSE [MASS/VOLUM E] IN SERUM OR PLASMA 107 70 - 100 06/13 H Specimen Type: PLASMA No comment entered. Ordering Provider: HAYDEE LOMBARDI Report Released Date/Time: Jun 13, 2023 09:00 AM Reporting Lab: [facility] [address] Performing Lab: [facility] [address] [facility] COMPREHEN SIVE METABOLIC PANEL+MG SODIUM [MOLES/VOLU ME] IN SERUM OR PLASMA 139 136 - 145 06/13 Specimen Type: PLASMA No comment entered. Ordering Provider: HAYDEE LOMBARDI Report Released Date/Time: Jun 13, 2023 09:00 AM Reporting Lab: [facility] [address] Performing Lab: [facility] [address] [facility] COMPREHEN SIVE METABOLIC PANEL+MG POTASSIUM [MOLES/VOLU ME] IN SERUM OR PLASMA 4.0 3.5 - 5.1 06/13 Specimen Type: PLASMA No comment entered. Ordering Provider: HAYDEE LOMBARDI Report Released Date/Time: Jun 13, 2023 09:00 AM Reporting Lab: [facility] [address] Performing Lab: [facility] [address] [facility] COMPREHEN SIVE METABOLIC PANEL+MG CHLORIDE [MOLES/VOLU ME] IN SERUM OR PLASMA 104 98 - 107 06/13 Specimen Type: PLASMA No comment entered. Ordering Provider: HAYDEE LOMBARDI Report Released Date/Time: Jun 13, 2023 09:00 AM Reporting Lab: [facility] [address] Performing Lab: [facility] [address] [facility] COMPREHEN SIVE METABOLIC PANEL+MG CARBON DIOXIDE, TOTAL [MOLES/VOLU ME] IN SERUM OR PLASMA 22 22 - 29 06/13 Specimen Type: PLASMA No comment entered. Ordering Provider: HAYDEE LOMBARDI Report Released Date/Time: Jun 13, 2023 09:00 AM Reporting Lab: [facility] [address] Performing Lab: [facility] [address] [facility] COMPREHEN SIVE METABOLIC PANEL+MG CALCIUM [MASS/VOLUM E] IN SERUM OR PLASMA 9.4 8.4 - 10.2 06/13 Specimen Type: PLASMA No comment entered. Ordering Provider: HAYDEE LOMBARDI Report Released Date/Time: Jun 13, 2023 09:00 AM Reporting Lab: [facility] [address] Performing Lab: [facility] [address] [facility] COMPREHEN SIVE METABOLIC PANEL+MG PROTEIN [MASS/VOLUM E] IN SERUM OR PLASMA 7.2 6.0 - 8.3 06/13 Specimen Type: PLASMA No comment entered. Ordering Provider: HAYDEE LOMBARDI Report Released Date/Time: Jun 13, 2023 09:00 AM Reporting Lab: [facility] [address] Performing Lab: [facility] [address] [facility] COMPREHEN SIVE METABOLIC PANEL+MG ALBUMIN [MASS/VOLUM E] IN SERUM OR PLASMA 4.3 3.5 - 5.2 06/13 Specimen Type: PLASMA No comment entered. Ordering Provider: HAYDEE LOMBARDI Report Released Date/Time: Jun 13, 2023 09:00 AM Reporting Lab: [facility] [address] Performing Lab: [facility] [address] [facility] COMPREHEN SIVE METABOLIC PANEL+MG BILIRUBIN.T OTAL [MASS/VOLUM E] IN SERUM OR PLASMA 0.5 0.2 - 1.2 06/13 Specimen Type: PLASMA No comment entered. Ordering Provider: HAYDEE LOMBARDI Report Released Date/Time: Jun 13, 2023 09:00 AM Reporting Lab: [facility] [address] Performing Lab: [facility] [address] [facility] COMPREHEN SIVE METABOLIC PANEL+MG MAGNESIUM [MASS/VOLUM E] IN SERUM OR PLASMA 1.9 1.6 - 2.6 06/13 Specimen Type: PLASMA No comment entered. Ordering Provider: HAYDEE LOMBARDI Report Released Date/Time: Jun 13, 2023 09:00 AM Reporting Lab: [facility] [address] Performing Lab: [facility] [address] [facility] COMPREHEN SIVE METABOLIC PANEL+MG ANION GAP IN SERUM OR PLASMA 13 5 - 15 06/13 Specimen Type: PLASMA No comment entered. Ordering Provider: HAYDEE LOMBARDI Report Released Date/Time: Jun 13, 2023 09:00 AM Reporting Lab: [facility] [address] Performing Lab: [facility] [address] [facility] COMPREHEN SIVE METABOLIC PANEL+MG ALKALINE PHOSPHATASE [ENZYMATIC ACTIVITY/VO LUME] IN SERUM OR PLASMA 69 40 - 150 06/13 Specimen Type: PLASMA No comment entered. Ordering Provider: HAYDEE LOMBARDI Report Released Date/Time: Jun 13, 2023 09:00 AM Reporting Lab: [facility] [address] Performing Lab: [facility] [address] [facility] COMPREHEN SIVE METABOLIC PANEL+MG ALANINE AMINOTRANSF ERASE [ENZYMATIC ACTIVITY/VO LUME] IN SERUM OR PLASMA 22 <55 - 55 06/13 Specimen Type: PLASMA No comment entered. Ordering Provider: HAYDEE LOMBARDI Report Released Date/Time: Jun 13, 2023 09:00 AM Reporting Lab: [facility] [address] Performing Lab: [facility] [address] [facility] COMPREHEN SIVE METABOLIC PANEL+MG ASPARTATE AMINOTRANSF ERASE [ENZYMATIC ACTIVITY/VO LUME] IN SERUM OR PLASMA 17 <34 - 34 06/13 Specimen Type: PLASMA No comment entered. Ordering Provider: HAYDEE LOMBARDI Report Released Date/Time: Jun 13, 2023 09:00 AM Reporting Lab: [facility] [address] Performing Lab: [facility] [address] [facility] COMPREHEN SIVE METABOLIC PANEL+MG GLOMERULAR FILTRATION RATE/1.73 SQ M.PREDICTED [VOLUME RATE/AREA] IN SERUM, PLASMA OR BLOOD BY CREATININE- BASED FORMULA (CKD-EPI 2020) >90 60 06/13 Specimen Type: PLASMA No comment entered. Ordering Provider: HAYDEE LOMBARDI Report Released Date/Time: Jun 13, 2023 09:00 AM Reporting Lab: [facility] [address] Performing Lab: [facility] [address] [facility] COMPREHEN SIVE METABOLIC PANEL+MG CREATININE [MASS/VOLUM E] IN SERUM OR PLASMA 0.9 0.7 - 1.2 06/05 Specimen Type: PLASMA No comment entered. Ordering Provider: HAYDEE LOMBARDI Report Released Date/Time: Jun 05, 2022 08:56 AM Reporting Lab: [facility] [id number] Performing Lab: [facility] [id number] [facility] COMPREHEN SIVE METABOLIC PANEL+MG UREA NITROGEN [MASS/VOLUM E] IN SERUM OR PLASMA 12 8 - 26 06/05 Specimen Type: PLASMA No comment entered. Ordering Provider: HAYDEE LOMBARDI Report Released Date/Time: Jun 05, 2022 08:56 AM Reporting Lab: [facility] [id number] [facility]: [facility] [facility] [address] [facility] COMPREHEN SIVE METABOLIC PANEL+MG GLUCOSE [MASS/VOLUM E] IN SERUM OR PLASMA 98 70 - 100 06/05 Specimen Type: PLASMA No comment entered. Ordering Provider: HAYDEE LOMBARDI Report Released Date/Time: Jun 05, 2022 08:56 AM Reporting Lab: [facility] [address] Performing Lab: [facility] [address] [facility] COMPREHEN SIVE METABOLIC PANEL+MG SODIUM [MOLES/VOLU ME] IN SERUM OR PLASMA 138 136 - 145 06/05 Specimen Type: PLASMA No comment entered. Ordering Provider: HAYDEE LOMBARDI Report Released Date/Time: Jun 05, 2022 08:56 AM Reporting Lab: [facility] [address] Performing Lab: [facility] [address] [facility] COMPREHEN SIVE METABOLIC PANEL+MG POTASSIUM [MOLES/VOLU ME] IN SERUM OR PLASMA 4.2 3.5 - 5.1 06/05 Specimen Type: PLASMA No comment entered. Ordering Provider: HAYDEE LOMBARDI Report Released Date/Time: Jun 05, 2022 08:56 AM Reporting Lab: [facility] [address] Performing Lab: [facility] [address] [facility] COMPREHEN SIVE METABOLIC PANEL+MG CHLORIDE [MOLES/VOLU ME] IN SERUM OR PLASMA 105 98 - 107 06/05 Specimen Type: PLASMA No comment entered. Ordering Provider: HAYDEE LOMBARDI Report Released Date/Time: Jun 05, 2022 08:56 AM Reporting Lab: [facility] [address] Performing Lab: [facility] [address] [facility] COMPREHEN SIVE METABOLIC PANEL+MG CARBON DIOXIDE, TOTAL [MOLES/VOLU ME] IN SERUM OR PLASMA 24 22 - 29 06/05 Specimen Type: PLASMA No comment entered. Ordering Provider: HAYDEE LOMBARDI Report Released Date/Time: Jun 05, 2022 08:56 AM Reporting Lab: [facility] [address] Performing Lab: [facility] [address] [facility] COMPREHEN SIVE METABOLIC PANEL+MG CALCIUM [MASS/VOLUM E] IN SERUM OR PLASMA 9.4 8.4 - 10.2 06/05 Specimen Type: PLASMA No comment entered. Ordering Provider: HAYDEE LOMBARDI Report Released Date/Time: Jun 05, 2022 08:56 AM Reporting Lab: [facility] [address] Performing Lab: [facility] [address] [facility] COMPREHEN SIVE METABOLIC PANEL+MG PROTEIN [MASS/VOLUM E] IN SERUM OR PLASMA 7.1 6.0 - 8.3 06/05 Specimen Type: PLASMA No comment entered. Ordering Provider: HAYDEE LOMBARDI Report Released Date/Time: Jun 05, 2022 08:56 AM Reporting Lab: [facility] [address] Performing Lab: [facility] [address] [facility] COMPREHEN SIVE METABOLIC PANEL+MG ALBUMIN [MASS/VOLUM E] IN SERUM OR PLASMA 4.2 3.5 - 5.2 06/05 Specimen Type: PLASMA No comment entered. Ordering Provider: HAYDEE LOMBARDI Report Released Date/Time: Jun 05, 2022 08:56 AM Reporting Lab: [facility] [address] Performing Lab: [facility] [address] [facility] COMPREHEN SIVE METABOLIC PANEL+MG BILIRUBIN.T OTAL [MASS/VOLUM E] IN SERUM OR PLASMA 0.5 0.2 - 1.2 06/05 Specimen Type: PLASMA No comment entered. Ordering Provider: HAYDEE LOMBARDI Report Released Date/Time: Jun 05, 2022 08:56 AM Reporting Lab: [facility] [address] Performing Lab: [facility] [address] [facility] COMPREHEN SIVE METABOLIC PANEL+MG MAGNESIUM [MASS/VOLUM E] IN SERUM OR PLASMA 2.0 1.6 - 2.6 06/05 Specimen Type: PLASMA No comment entered. Ordering Provider: HAYDEE LOMBARDI Report Released Date/Time: Jun 05, 2022 08:56 AM Reporting Lab: [facility] [address] Performing Lab: [facility] [address] [facility] COMPREHEN SIVE METABOLIC PANEL+MG ANION GAP IN SERUM OR PLASMA 9 5 - 15 06/05 Specimen Type: PLASMA No comment entered. Ordering Provider: HAYDEE LOMBARDI Report Released Date/Time: Jun 05, 2022 08:56 AM Reporting Lab: [facility] [address] Performing Lab: [facility] [address] [facility] COMPREHEN SIVE METABOLIC PANEL+MG ALKALINE PHOSPHATASE [ENZYMATIC ACTIVITY/VO LUME] IN SERUM OR PLASMA 64 40 - 150 06/05 Specimen Type: PLASMA No comment entered. Ordering Provider: HAYDEE LOMBARDI Report Released Date/Time: Jun 05, 2022 08:56 AM Reporting Lab: [facility] [address] Performing Lab: [facility] [address] [facility] COMPREHEN SIVE METABOLIC PANEL+MG ALANINE AMINOTRANSF ERASE [ENZYMATIC ACTIVITY/VO LUME] IN SERUM OR PLASMA 25 <55 - 55 06/05 Specimen Type: PLASMA No comment entered. Ordering Provider: HAYDEE LOMBARDI Report Released Date/Time: Jun 05, 2022 08:56 AM Reporting Lab: [facility] [address] Performing Lab: [facility] [address] [facility] COMPREHEN SIVE METABOLIC PANEL+MG ASPARTATE AMINOTRANSF ERASE [ENZYMATIC ACTIVITY/VO LUME] IN SERUM OR PLASMA 21 <34 - 34 06/05 Specimen Type: PLASMA No comment entered. Ordering Provider: HAYDEE LOMBARDI Report Released Date/Time: Jun 05, 2022 08:56 AM Reporting Lab: [facility] [address] Performing Lab: [facility] [address] [facility] COMPREHEN SIVE METABOLIC PANEL+MG GLOMERULAR FILTRATION RATE/1.73 SQ M.PREDICTED [VOLUME RATE/AREA] IN SERUM, PLASMA OR BLOOD BY CREATININE- BASED FORMULA (CKD-EPI) >90 60 06/05 Specimen Type: PLASMA No comment entered. Ordering Provider: HAYDEE LOMBARDI Report Released Date/Time: Jun 05, 2022 08:56 AM Reporting Lab: [facility] [address] Performing Lab: [facility] [address] [facility] CBC & DIFF LEUKOCYTES [#/VOLUME] IN BLOOD BY AUTOMATED COUNT 8.33 4.0 - 11.0 06/05 Specimen Type: BLOOD Comment: Automated Differentia l Performed Ordering Provider: HAYDEE LOMBARDI Report Released Date/Time: Jun 05, 2022 08:56 AM Reporting Lab: [facility] [address] Performing Lab: [facility] [address] [facility] CBC & DIFF ERYTHROCYTE S [#/VOLUME] IN BLOOD BY AUTOMATED COUNT 5.04 4.6 - 6.2 06/05 Specimen Type: BLOOD Comment: Automated Differentia l Performed Ordering Provider: HAYDEE LOMBARDI Report Released Date/Time: Jun 05, 2022 08:56 AM Reporting Lab: [facility] [address] Performing Lab: [facility] [address] [facility] CBC & DIFF HEMOGLOBIN [MASS/VOLUM E] IN BLOOD 15.8 13.5 - 17.9 06/05 Specimen Type: BLOOD Comment: Automated Differentia l Performed Ordering Provider: HAYDEE LOMBARDI Report Released Date/Time: Jun 05, 2022 08:56 AM Reporting Lab: [facility] [address] Performing Lab: [facility] [address] [facility] CBC & DIFF HEMATOCRIT [VOLUME FRACTION] OF BLOOD BY AUTOMATED COUNT 45.5 41 - 54 06/05 Specimen Type: BLOOD Comment: Automated Differentia l Performed Ordering Provider: HAYDEE LOMBARDI Report Released Date/Time: Jun 05, 2022 08:56 AM Reporting Lab: [facility] [address] Performing Lab: [facility] [address] [facility] CBC & DIFF MCV [ENTITIC VOLUME] BY AUTOMATED COUNT 90.3 80 - 100 06/05 Specimen Type: BLOOD Comment: Automated Differentia l Performed Ordering Provider: HAYDEE LOMBARDI Report Released Date/Time: Jun 05, 2022 08:56 AM Reporting Lab: [facility] [address] Performing Lab: [facility] [address] [facility] CBC & DIFF MCH [ENTITIC MASS] BY AUTOMATED COUNT 31.3 27 - 33 06/05 Specimen Type: BLOOD Comment: Automated Differentia l Performed Ordering Provider: HAYDEE LOMBARDI Report Released Date/Time: Jun 05, 2022 08:56 AM Reporting Lab: [facility] [address] Performing Lab: [facility] [address] [facility] CBC & DIFF MCHC [MASS/VOLUM E] BY AUTOMATED COUNT 34.7 32.0 - 37.5 06/05 Specimen Type: BLOOD Comment: Automated Differentia l Performed Ordering Provider: HAYDEE LOMBARDI Report Released Date/Time: Jun 05, 2022 08:56 AM Reporting Lab: [facility] [address] Performing Lab: [facility] [address] [facility] CBC & DIFF PLATELETS [#/VOLUME] IN BLOOD BY AUTOMATED COUNT 419 150 - 400 06/05 H Specimen Type: BLOOD Comment: Automated Differentia l Performed Ordering Provider: HAYDEE LOMBARDI Report Released Date/Time: Jun 05, 2022 08:56 AM Reporting Lab: [facility] [address] Performing Lab: [facility] [address] [facility] CBC & DIFF PLATELET MEAN VOLUME [ENTITIC VOLUME] IN BLOOD BY AUTOMATED COUNT 8.8 7.4 - 10.4 06/05 Specimen Type: BLOOD Comment: Automated Differentia l Performed Ordering Provider: HAYDEE LOMBARDI Report Released Date/Time: Jun 05, 2022 08:56 AM Reporting Lab: [facility] [address] Performing Lab: [facility] [address] [facility] CBC & DIFF NEUTROPHILS /100 LEUKOCYTES IN BLOOD BY MANUAL COUNT 60.3 06/05 Specimen Type: BLOOD Comment: Automated Differentia l Performed Ordering Provider: HAYDEE LOMBARDI Report Released Date/Time: Jun 05, 2022 08:56 AM Reporting Lab: [facility] [address] Performing Lab: [facility] [address] [facility] CBC & DIFF LYMPHOCYTES /100 LEUKOCYTES IN BLOOD BY MANUAL COUNT 26.9 06/05 Specimen Type: BLOOD Comment: Automated Differentia l Performed Ordering Provider: HAYDEE LOMBARDI Report Released Date/Time: Jun 05, 2022 08:56 AM Reporting Lab: [facility] [address] Performing Lab: [facility] [address] [facility] CBC & DIFF MONOCYTES/1 00 LEUKOCYTES IN BLOOD BY AUTOMATED COUNT 7.9 06/05 Specimen Type: BLOOD Comment: Automated Differentia l Performed Ordering Provider: HAYDEE LOMBARDI Report Released Date/Time: Jun 05, 2022 08:56 AM Reporting Lab: [facility] [address] Performing Lab: [facility] [address] [facility] CBC & DIFF EOSINOPHILS /100 LEUKOCYTES IN BLOOD BY AUTOMATED COUNT 3.4 06/05 Specimen Type: BLOOD Comment: Automated Differentia l Performed Ordering Provider: HAYDEE LOMBARDI Report Released Date/Time: Jun 05, 2022 08:56 AM Reporting Lab: [facility] [address] Performing Lab: [facility] [address] [facility] CBC & DIFF BASOPHILS/1 00 LEUKOCYTES IN BLOOD BY MANUAL COUNT 1.1 06/05 Specimen Type: BLOOD Comment: Automated Differentia l Performed Ordering Provider: HAYDEE LOMBARDI Report Released Date/Time: Jun 05, 2022 08:56 AM Reporting Lab: [facility] [address] Performing Lab: [facility] [address] [facility] CBC & DIFF ERYTHROCYTE DISTRIBUTIO N WIDTH [RATIO] BY AUTOMATED COUNT 13.3 11.5 - 14.5 06/05 Specimen Type: BLOOD Comment: Automated Differentia l Performed Ordering Provider: HAYDEE LOMBARDI Report Released Date/Time: Jun 05, 2022 08:56 AM Reporting Lab: [facility] [address] Performing Lab: [facility] [address] [facility] CBC & DIFF LYMPHOCYTES [#/VOLUME] IN BLOOD BY AUTOMATED COUNT 2.24 1.0 - 4.0 06/05 Specimen Type: BLOOD Comment: Automated Differentia l Performed Ordering Provider: HAYDEE LOMBARDI Report Released Date/Time: Jun 05, 2022 08:56 AM Reporting Lab: [facility] [address] Performing Lab: [facility] [address] [facility] CBC & DIFF MONOCYTES [#/VOLUME] IN BLOOD BY AUTOMATED COUNT 0.66 0.1 - 1.0 06/05 Specimen Type: BLOOD Comment: Automated Differentia l Performed Ordering Provider: HAYDEE LOMBARDI Report Released Date/Time: Jun 05, 2022 08:56 AM Reporting Lab: [facility] [address] Performing Lab: [facility] [address] [facility] CBC & DIFF NEUTROPHILS [#/VOLUME] IN BLOOD BY AUTOMATED COUNT 5.03 2.0 - 7.7 06/05 Specimen Type: BLOOD Comment: Automated Differentia l Performed Ordering Provider: HAYDEE LOMBARDI Report Released Date/Time: Jun 05, 2022 08:56 AM Reporting Lab: [facility] [address] Performing Lab: [facility] [address] [facility] CBC & DIFF EOSINOPHILS [#/VOLUME] IN BLOOD BY AUTOMATED COUNT 0.28 0 - 0.5 01/30 /2023 Specimen Type: BLOOD Comment: Automated Differentia l Performed Ordering Provider: HAYDEE LOMBARDI Report Released Date/Time: Jun 05, 2022 08:56 AM Reporting Lab: [facility] [address] Performing Lab: [facility] [address] [facility] CBC & DIFF BASOPHILS [#/VOLUME] IN BLOOD BY AUTOMATED COUNT 0.09 0 - 0.2 06/05 Specimen Type: BLOOD Comment: Automated Differentia l Performed Ordering Provider: HAYDEE LOMBARDI Report Released Date/Time: Jun 05, 2022 08:56 AM Reporting Lab: [facility] [address] Performing Lab: [facility] [address] [facility] CBC & DIFF IG(META,MYE LO,PRO) 0.4 06/05 Specimen Type: BLOOD Comment: Automated Differentia l Performed Ordering Provider: HAYDEE LOMBARDI Report Released Date/Time: Jun 05, 2022 08:56 AM Reporting Lab: [facility] [address] Performing Lab: [facility] [address] [facility] CBC & DIFF IMMATURE GRANULOCYTE S [PRESENCE] IN BLOOD BY AUTOMATED COUNT 0.03 0 - 0.1 06/05 Specimen Type: BLOOD Comment: Automated Differentia l Performed Ordering Provider: HAYDEE LOMBARDI Report Released Date/Time: Jun 05, 2022 08:56 AM Reporting Lab: [facility] [address] Performing Lab: [facility] [address] [facility] Vital Signs Combined list of inpatient and outpatient Vital Signs from Department of Defense and Veterans Affairs, ranging from 12 months to all on record, depending upon the facility. Vital Sign Value Date Comments Source Encounters Combined list of: 1) Encounters from Department of Veterans Affairs facilities going back up to thelast 18 months. 2) Encounters from the Department of Defense facilities going back up to 280 months. 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
MARIA CStarr EBECCA L 06/05 [facility] [place] [facility] Outpatient Encounter [id number] 06/14 [place] [facility] [place] [facility] Outpatient Encounter [id number] 06/15 [place] [facility] OFF/OP EST MAY X REQ PHY/QHP [id number] Diagnos is: ICD-10- CM Z23 Encount er for immuniz ation<b r/> MIESHA CARRILLO 06/22 [facility] [place] [facility] Outpatient Encounter [id number] 07/13 [place] [facility] [place] [facility] Outpatient Encounter [id number] 07/31 [place] [facility] [place] [facility] En[facility] [id number] 08/07 [place] [facility] [place] [facility] Outpatient Encounter [id number] 08/31 [place] [facility] [place] [facility] Outpatient Encounter [id number] 10/09 [place] [facility] [place] [facility] [place] En[place] [id number] 10/10 [place] [facility] [place] [facility] Outpatient Encounter [id number] 11/15 [place] [facility] [place] [facility] Outpatient Encounter [id number] 12/13 [place] [facility] [place] [facility] Outpatient Encounter [id number] 12/28 [place] [facility] PRO PHONE CALL 5-10 MIN [id number] Diagnos is: ICD-10- CM Z71.9 Line Service Person ing, unspeci fied
KIRSTIN RIZO 01/01 [facility] [place] [facility] Outpatient Encounter [id number] 01/10 [place] [facility] [place] [facility] OFF/OP CNSLTJ NEW/EST MOD 40 [id number] Diagnos is: ICD-10- CM M25.569 Pain in unspeci fied knee
TRELL LUTHER MD 01/19 [place] [facility] [place] [facility] [place] [id number] 01/19 [place] [facility] [place] [facility] Outpatient Encounter [id number] 01/31 [place] [facility] [place] [facility] Outpatient Encounter [id number] 02/15 [place] [facility] [place] [facility] Outpatient Encounter [id number] BUBBA OSCAR 02/15 [place] [facility] PRO PHONE CALL 5-10 MIN [id number] Diagnos is: ICD-10- CM Z71.9 Line Service Person ing, unspeci fied
WHITE,TERR A R 02/15 [facility] [place] [facility] Outpatient Encounter [id number] 02/21 [place] [facility] [place] [facility] OFF/OP CNSLTJ NEW/EST MOD 40 [id number] Diagnos is: ICD-10- CM S62.605 A Fractur e of unsp phalanx of left ring finger, init
ZUMBACH,AN BÁRBARA L 02/22 [facility] [place] [facility] THERAPEUTI C EXERCISES [id number] Diagnos is: ICD-10- CM S62.665 D Nondisp fx of dist phalanx of l rng fngr, 7thD
JES SANDRAG 02/22 [place] [facility] [place] [facility] Outpatient Encounter [id number] 02/28 [place] [facility] [place] [facility] Outpatient Encounter [id number] 03/05 [place] [facility] [place] [facility] Outpatient Encounter [id number] 03/07 [place] [facility] [place] [facility] Outpatient Encounter [id number] 03/07 [place] [facility] [place] [facility] Outpatient Encounter [id number] 03/09 [place] [place] [facility] Outpatient Encounter [id number] 03/26 [place] [facility] [place] [facility] Outpatient Encounter [id number] 03/28 [place] [facility] [place] [facility] Outpatient Encounter [id number] 04/10 [place] [facility] [place] [facility] Outpatient Encounter [id number] 04/10 [place] [facility] OFF/OP EST MAY X REQ PHY/QHP [id number] Diagnos is: ICD-10- CM Z71.9 Line Service Person ing, unspeci fied
WHITEKIRSTIN A R 04/11 [facility] [place] [facility] Outpatient Encounter [id number] 04/11 [place] [facility] [place] [facility] Outpatient Encounter [id number] 04/11 [place] [facility] [place] [facility] OFF/OP CNSLTJ NEW/EST MOD 40 [id number] Diagnos is: ICD-10- CM L60.0 Ingrowi ng nail
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
MAKAYLA MARTELL 05/09 [place] [facility] [place] [facility] Outpatient Encounter [id number] 05/09 [place] [facility] [place] [facility] ORTHC/PROS TC MGMT SBSQ ENC [id number] Diagnos is: ICD-10- CM M25.374 Other instabi lity, right foot
NISEAGMARLENY PHILLIP P 05/17 [place] [facility] [place] [facility] Outpatient Encounter [id number] 05/31 [place] [facility] OFFICE O/P EST MOD 30 MIN [id number] Diagnos is: ICD-10- CM Z00.8 Encount er for other general examina tion
Starr LOMBARDI EBECCA L 06/13 [facility] [place] [facility] Outpatient Encounter [id number] 06/27 [place] [facility] [place] [facility] Outpatient Encounter [id number] 07/04 [place] [facility] [place] [facility] ORTHC/PROS TC MGMT SBSQ ENC [id number] Diagnos is: ICD-10- CM M25.375 Other instabi lity, left foot
NISEAGMARLENY PHILLIP P 07/12 [place] [facility] [place] [facility] Outpatient Encounter [id number] 08/13 [place] [facility] [place] [facility] Outpatient Encounter [id number] 08/21 [place] [facility] [place] [facility] Outpatient Encounter [id number] 08/21 [place] [facility] Social History Combined list of available smoking, tobacco, and other social history from Department of Defense and Veterans Affairs facilities. Social History Type Response Date Comment Sourc e Tobacco smoking status GAIS [facility]CO FORMER USER 06/13/2023 [facility] History of tobacco use [place]-TOBACCO QUIT 1 5 YRS OR MORE 06/13/2023 [facility] History of tobacco use VA-TOBACCO FORMER USER 06/05/2022 [facility] History of tobacco use VA-TOBACCO FORMER USER 06/08/2021 [facility] History of tobacco use VA-TOBACCO NEVER USED 06/11/2020 [facility] History of tobacco use VA-TOBACCO FORMER USER 06/05/2019 [facility] History of tobacco use VA-TOBACCO FORMER USER 06/26/2018 [facility] History of tobacco use FORMER TOBACCO US ER 7Y OR GREATER 05/24/2017 [facility] History of tobacco use FORMER TOBACCO US ER 7Y OR GREATER 04/19/2016 [facility] History of tobacco use FORMER TOBACCO US ER 7Y OR GREATER 04/23/2015 [facility] History of tobacco use FORMER TOBACCO US ER 7Y OR GREATER 06/15/2014 [facility] History of tobacco use FORMER TOBACCO US ER 7Y OR GREATER 11/14/2006 [facility] Advance Directives List of completed, amended, or rescinded Advance Directives on record at Department of Veterans Affairs facilities. An actual copy of the Directive is not included. Date Advance Directive Provider Source 09/22/2021 [facility] 09/01/2016 [facility] DIRECTIVE DISCUSSION [facility]
--- OUTSIDE RECORDS SUMMARY | 2023-09-11 07:04 | XMS_ITS | Encounter Summary ---
Author Name Department of Vetera Affairs Organization Department of Vetera [facility] Address [address] [place] [address] Support Name Relationship Address Phone NIVIA GAITAN Next of Kin [address] [place] [address] NIVIA GAITAN Emergency Contact [address] [place] [address] Insurance Providers: All historical and current Section [...] Patient's Relationship to Policy Rodriguez [facility] [employer] [facility] (WNR) MEDICARE ADVANTAGE [facility] (WNR) May 07, 2018 [id number] [phone] ANJU BAIG PATIENT [employer] [facility] (WNR) MEDICARE ADVANTAGE [facility] (WNR) May 07, 2021 [id number] ANJU BAIG PATIENT [employer] [facility] (WNR) MEDICARE ADVANTAGE [facility] (WNR) May 07, 2019 [id number] ANJU BAIG PATIENT [employer] [facility] (WNR) MEDICARE ADVANTAGE [facility] (WNR) May 07, 2019 [id number] [phone] ANJU BAIG PATIENT [employer] [facility] (WNR) MEDICARE ADVANTAGE [facility] (WNR) May 07, 2019 [id number] JOVANNI ANJU PATIENT Selected Encounter This section includes the information on record at [place] for the Encounter. Date/Time Encounter Type Encounter Description Reason Pro vider Source Jul 04, 2023 12:00 PM Outpatient Encounter PRIMARY CARE/MEDICINE E Encounter Template Text not used by ND Plan of Treatment: Future Appointments (+ 6 months) and Future Tests (+/- 45 days) The Plan of Treatment section includes future care activities for the [facility] [place] [facility] This section includes future appointments and future orders which are active, pending or scheduled. Future Appointments This section includes appointments that were scheduled to occur 6 months from the date of the Encounter, up to a maximum of 20 appointments. The data comes from all [place] treatment facilities. Appointment Date/Time Appointment Type Appointme nt Facility Name Jul 13, 2023 10:00 AM AMBULATORY - NONE [facility] Lab Results: +/- 30 days of the encounter This section includes the Chemistry and Hematology Lab Results on record with ND for the patient. Radiology Reports and Pathology Reports are provided separately, in subsequent sections. Lab Results This section contains the Chemistry/Hematology Results that were resulted 30 days before or 30 daysafter the date of the Encounter. Date/Time Source Result Type Result - Unit Interpretation Reference Range Comment Jun 13, 2023 09:08 AM [facility] HEMOGLOBIN A1C Specimen Type: BLOOD Comment: Values [...] Jun 13, 2023 09:00 AM Reporting Lab: [facility] [id number] Performing Lab: [facility] [id number] HEMOGLOBIN A1C 5.4 4.0-6.0 Jun 13, 2023 09:08 AM [facility] CBC & DIFF Specimen Type: BLOOD Comment: Automated Differential Performed Ordering Provider: VIOLETA LOMBARDI Report Released Date/Time: Jun 13, 2023 09:00 AM Reporting Lab: [facility] [address] Performing Lab: [facility] [address] WBC 7.58 4.0-11.0 RBC 5.02 4.6-6.2 HGB [...] 0.03 0-0.1 Jun 13, 2023 09:08 AM [facility] COMPREHENSIVE METABOLIC PANEL+MG Specimen Type: PLASMA No comment entered. Ordering Provider: VIOLETA LOMBARDI Report Released Date/Time: Jun 13, 2023 09:00 AM Reporting Lab: [facility] [address] Performing Lab: [facility] [address] CREATININE 0.8 0.7-1.2 UREA NITROGEN 11 8-26 GLUCOSE 107 H 70-100 SODIUM 139 136-145 POTASSIUM 4.0 3.5-5.1 CHLORIDE 104 98-107 CO2 22 22-29 CALCIUM 9.4 8.4-10.2 PROTEIN,TOTAL 7.2 6.0-8.3 ALBUMIN 4.3 3.5-5.2 BILIRUBIN, TOTAL 0.5 0.2-1.2 MAGNESIUM 1.9 1.6-2.6 ANION GAP 13 5-15 ALKALINE PHOSPHATASE 69 40-150 ALT/SGPT 22 <55 AST/SGOT 17 <34 .CREAT EGFR(CKD-EPI) >90 >60 Social History: Smoking Status (Most current) and Tobacco Use (All prior to encounter date) This section includes the most current, and the historical, smoking and tobacco- related health factors from the [place] facility where the Encounter took place. Current Smoking Status This section includes the most current smoking, or tobacco-related health factor, from the [place] facility where the Encounter took place. Date/Time Current Smoking Status Comment Facil ity Nov 14, 2006 09:22 AM FORMER TOBACCO USER 7Y OR GREATE R [facility] Advance Directives: All historical and current Section Date Range: From patient's date of to the date document was created. This section includes ALL of a patient's completed or amended [place] Advance and Rescinded Directives. The entries below indicate that a directive exists for the patient, but an actual copy is not included with this document. The data comes from all [place] facilities. Date Advance Directives Provider Source September 22, 2021 ADVANCE DIRECTIVE RICHARD PLASCENCIA [facility] September 22, 2021 ADVANCE DIRECTIVE DISCUSSION ROBERTO PLASCENCIA [facility] Sep 01, 2016 ADVANCE DIRECTIVE DISCUSSION ROBERTO PLASCENCIA [facility] Sep 01, 2016 ADVANCE DIRECTIVE RICHARD PLASCENCIA [facility] Encounter Notes: All associated encounter notes This section contains the clinical notes associated to the Encounter. Date/Time Encounter Note(s) Provider Source Jul 04, 2023 12:00 PM NONVA CONSULT: LOCAL TITLE: COMMUNITY CARE CONSULT RESULT CHIROPRACTIC STANDARD TITLE: NONVA CONSULT DATE OF NOTE: JUL 04, 2023@12:00 ENTRY DATE: JUL 17, 2023@11:32:05 AUTHOR: RITESH AGUILAR EXP COSIGNER: URGENCY: STATUS: COMPLETED VistA Imaging - Scanned Document SCANNED DOCUMENT SIGNATURE NOT REQUIRED Electronically Filed: 07/17/2023 by: RITESH AGUILAR LPN LICENSED PRACTICAL NURSE RITESH AGUILAR [facility]
--- OUTSIDE RECORDS SUMMARY | 2023-09-11 07:04 | XMS_ITS | Encounter Summary ---
Author Name Department of Vetera [facility] Organization Department of Vetera [facility] Address [address] [place] [address] Support Name Relationship Address Phone NIVIA GAITAN Next of Kin [address] [place] [address] NIVIA GAITAN Emergency Contact [address] [place] [address] Insurance Providers: All historical and [...] Patient's Relationship to Policy Rodriguez [facility] (WNR) MEDICARE ADVANTAGE [facility] (WNR) May 07, 2018 [id number] [phone] ANJU BAIG PATIENT [employer] [facility] (WNR) MEDICARE ADVANTAGE [facility] (WNR) May 07, 2021 [id number] ANJU BAIG PATIENT [employer] [facility] (WNR) MEDICARE ADVANTAGE [facility] (WNR) May 07, 2019 [id number] AJNU BAIG PATIENT [employer] [facility] (WNR) MEDICARE ADVANTAGE [facility] (WNR) May 07, 2019 [id number] ANJU BAIG PATIENT [employer] [facility] (WNR) MEDICARE ADVANTAGE [facility] (WNR) May 07, 2019 [id number] [phone] JOVANNI ANJU PATIENT Selected Encounter This section includes the information on record at MD for the Encounter. Date/Time Encounter Type Encounter Description Reason Pro vider Source Jun 27, 2023 01:59 PM Outpatient Encounter COMMUNITY CARE CONSULT IHE Encounter Template Text not used by MD Plan of Treatment: Future Appointments (+ 6 months) and Future Tests (+/- 45 days) The Plan of Treatment section includes future care activities for the patient [facility]. This section includes future appointments and future orders which are active, pending or scheduled. Future Appointments This section includes appointments that were scheduled to occur 6 months from the date of the Encounter, up to a maximum of 20 appointments. The data comes from all [facility] facilities. Appointment Date/Time Appointment Type Appointme nt Facility Name Jul 04, 2023 10:30 AM AMBULATORY - NONE [facility] Jul 13, 2023 10:00 AM AMBULATORY - NONE [facility] Lab Results: +/- 30 days of the encounter This section includes the Chemistry and Hematology Lab Results on record with MD for the patient. Radiology Reports and Pathology Reports are provided separately, in subsequent sections. Lab Results This section contains the Chemistry/Hematology Results that were resulted 30 days before or 30 daysafter the date of the Encounter. Date/Time Source Result Type Result - Unit Interpretation Reference Range Comment Jun 13, 2023 09:08 AM [facility] HEMOGLOBIN A1C Specimen Type: BLOOD Comment: Values [...] Jun 13, 2023 09:00 AM Reporting Lab: [facility] [id number] Performing Lab: [facility] [address] HEMOGLOBIN A1C 5.4 4.0-6.0 Jun 13, 2023 09:08 AM [facility] CBC & DIFF Specimen Type: BLOOD Comment: Automated Differential Performed Ordering Provider: VIOLETA LOMBARDI Report Released Date/Time: Jun 13, 2023 09:00 AM Reporting Lab: [facility] [address] Performing Lab: [facility] [address] WBC 7.58 4.0-11.0 RBC 5.02 4.6-6.2 HGB [...] 0.03 0-0.1 Jun 13, 2023 09:08 AM [facility] COMPREHENSIVE METABOLIC PANEL+MG Specimen Type: PLASMA No comment entered. Ordering Provider: VIOLETA LOMBARDI Report Released Date/Time: Jun 13, 2023 09:00 AM Reporting Lab: [facility] [address] Performing Lab: [facility] [address] CREATININE 0.8 0.7-1.2 UREA NITROGEN 11 8-26 [...] and tobacco- related health factors from the [place] facility where the Encounter took place. Current Smoking Status This section includes the most current smoking, or tobacco-related health factor, from the MD facility where the Encounter took place. Date/Time Current Smoking Status Comment Facil ity Nov 14, 2006 09:22 AM FORMER TOBACCO USER 7Y OR GREATE R [facility] Advance Directives: All historical and current Section Date Range: From patient's date of to the date document was created. This section includes ALL of a patient's completed or amended MD Advance and Rescinded Directives. The entries below indicate that a directive exists for the patient, but an actual copy is not included with this document. The data comes from all MD facilities. Date Advance Directives Provider Source September 22, 2021 ADVANCE DIRECTIVE RICHARD PLASCENCIA [facility] September 22, 2021 ADVANCE DIRECTIVE DISCUSSION ROBERTO PLASCENCIA [facility] Sep 01, 2016 ADVANCE DIRECTIVE RICHARD PLASCENCIA [facility] Sep 01, 2016 ADVANCE DIRECTIVE DISCUSSION ROBERTO PLASCENCIA [facility] Encounter Notes: All associated encounter notes This section contains the clinical notes associated to the Encounter. Date/Time Encounter Note(s) Provider Source Jun 27, 2023 02:55 PM ADDENDUM: LOCAL TITLE: Addendum STANDARD TITLE: ADDENDUM DATE OF NOTE: JUN 27, 2023@14:55:12 ENTRY DATE: JUN 27, 2023@14:55:13 AUTHOR: FRANCE JUNIOR COSIGNER: URGENCY: STATUS: COMPLETED Today's date is just fine since old auth . /jody/ FRANCE JUNIOR LPN LPN Signed: 06/27/2023 14:55 Receipt Acknowledged By: 06/27/2023 15:27 /jody/ JOSE LOMBARDI PHYSICIAN === --- Original Document --- 06/27/23 COMMUNITY CARE-CARE COORDINATION PLAN NOTE: RE: consult# [id number] Heide at PH: [phone] from [facility] contacted [facility] to follow up on RFS. Previous consult have 05/14/2023. Alerting [employer] Consultant by MELA tellez for clinical review as needed. /deena SAEED Signed: 06/27/2023 14:05 Receipt Acknowledged By: 06/27/2023 14:15 /deena JUNIOR LPN LPN 06/27/2023 ADDENDUM STATUS: COMPLETED CHLOE date was incorrect on consult that was placed and therefore cancelled. Can you place a new consult since the previous authorization has now , see Request for service note of 04/24/23 if any questions. /deena JUNIOR LPN LPN Signed: 06/27/2023 14:17 Receipt Acknowledged By: 06/27/2023 14:44 /deena LOMBARDI PHYSICIAN 06/27/2023 ADDENDUM STATUS: COMPLETED Do I have adjust th edat for this new request? I only want to place it once not multiple times so pelase advise. /deena LOMBARDI PHYSICIAN Signed: 06/27/2023 14:45 Receipt Acknowledged By: 06/27/2023 14:55 /SUMANTH Kohli LPN, JANE M [facility] Jun 27, 2023 02:44 PM ADDENDUM: LOCAL TITLE: Addendum STANDARD TITLE: ADDENDUM DATE OF NOTE: JUN 27, 2023@14:44:28 ENTRY DATE: JUN 27, 2023@14:44:29 AUTHOR: JOSE LOMBARDI EXP COSIGNER: URGENCY: STATUS: COMPLETED Do I have adjust th edat for this new request? I only want to place it once not multiple times so pelase advisjeremy. /deena LOMBARDI PHYSICIAN Signed: 06/27/2023 14:45 Receipt Acknowledged By: 06/27/2023 14:55 /deena JUNIOR LPN LPN === --- Original Document --- 06/27/23 COMMUNITY CARE-CARE COORDINATION PLAN NOTE: RE: consult# [id number] Heide at PH: [phone] from [facility] contacted [facility] to follow up on RFS. Previous consult have 05/14/2023. Alerting [employer] Event [employer] Consultant by Leticia split for clinical review as needed. /deena SAEED Signed: 06/27/2023 14:05 Receipt Acknowledged By: 06/27/2023 14:15 /deena JUNIOR LPN LPN 06/27/2023 ADDENDUM STATUS: COMPLETED CHLOE date was incorrect on consult that was placed and therefore cancelled. Can you place a new consult since the previous authorization has now , see Request for service note of 04/24/23 if any questions. /deena JUNIOR LPN LPN Signed: 06/27/2023 14:17 Receipt Acknowledged By: 06/27/2023 14:44 /deena LOMBARDI PHYSICIAN 06/27/2023 ADDENDUM STATUS: COMPLETED Today's date is just fine since old auth . /deena JUNIOR LPN LPN Signed: 06/27/2023 14:55 Receipt Acknowledged By: * AWAITING SIGNATURE * JOSE LOMBARDI REBECCA L [facility] Jun 27, 2023 02:16 PM ADDENDUM: LOCAL TITLE: Addendum STANDARD TITLE: ADDENDUM DATE OF NOTE: JUN 27, 2023@14:16:12 ENTRY DATE: JUN 27, 2023@14:16:13 AUTHOR: FRANCE JUNIOR COSIGNER: URGENCY: STATUS: COMPLETED CHLOE date was incorrect on consult that was placed and therefore cancelled. Can you place a new consult since the previous authorization has now , see Request for service note of 04/24/23 if any questions. /deena JUNIOR LPN LPN Signed: 06/27/2023 14:17 Receipt Acknowledged By: 06/27/2023 14:44 /deena LOMBARDI PHYSICIAN === --- Original Document --- 06/27/23 COMMUNITY CARE-CARE COORDINATION PLAN NOTE: RE: consult# [id number] Heide at PH: [phone] [facility] [employer] contacted [facility] to follow up on RFS. Previous consult have 05/14/2023. Alerting 's Event Management Consultant by Leticia tellez for clinical review as needed. /deena SAEED Signed: 06/27/2023 14:05 Receipt Acknowledged By: 06/27/2023 14:15 /jody/ FRANCE JUNIOR LPN LPN 06/27/2023 ADDENDUM STATUS: COMPLETED Do I have adjust th edat for this new request? I only want to place it once not multiple times so pelase advise. /jody/ JOSE LOMBARDI PHYSICIAN Signed: 06/27/2023 14:45 Receipt Acknowledged By: * AWAITING SIGNATURE * FRANCE JUNIOR JANE M [facility] Jun 27, 2023 01:59 PM NONVA NOTE: LOCAL TITLE: COMMUNITY CARE-CARE COORDINATION PLAN NOTE STANDARD TITLE: NONVA NOTE DATE OF NOTE: JUN 27, 2023@13:59 ENTRY DATE: JUN 27, 2023@13:59:18 AUTHOR: GLENROY SAEED EXP COSIGNER: URGENCY: STATUS: COMPLETED COMMUNITY CARE-CARE COORDINATION PLAN NOTE Has ADDENDA RE: consult# [id number] Heide at PH: [phone] from [employer] contacted [facility] to follow up on RFS. Previous consult have 05/14/2023. Alerting 's Event Management Consultant by Leticia tellez for clinical review as needed. david SAEED Signed: 06/27/2023 14:05 Receipt Acknowledged By: 06/27/2023 14:15 /deena JUNIOR LPN LPN 06/27/2023 ADDENDUM STATUS: COMPLETED CHLOE date was incorrect on consult that was placed and therefore cancelled. Can you place a new consult since the previous authorization has now , see Request for service note of 04/24/23 if any questions. /jody/ FRANCE JUNIOR LPN LPN Signed: 06/27/2023 14:17 Receipt Acknowledged By: 06/27/2023 14:44 /jody/ JOSE LOMBARDI PHYSICIAN 06/27/2023 ADDENDUM STATUS: COMPLETED Do I have adjust th edat for this new request? I only want to place it once not multiple times so peljamir advise. /jody/ JOSE LOMBARDI PHYSICIAN Signed: 06/27/2023 14:45 Receipt Acknowledged By: 06/27/2023 14:55 /jody/ FRANCE JUNIOR LPN LPN 06/27/2023 ADDENDUM STATUS: COMPLETED Today's date is just fine since old auth . /jody/ FRANCE JUNIOR LPN LPN Signed: 06/27/2023 14:55 Receipt Acknowledged By: * AWAITING SIGNATURE * JOSE LOMBARDI CARRIE [facility]
--- OUTSIDE RECORDS SUMMARY | 2023-09-11 07:04 | XMS_ITS | Encounter Summary ---
Author Name Department of Vetera Affairs Organization Department of Vetera Affairs Address [address] [place] [address] Support Name Relationship Address Phone NIVIA GAITAN Next of Kin [address] [place] [address] NIVIA GAITAN Emergency Contact [address] [place], [place] [id number] Insurance Providers: All historical and current Section [...] Patient's Relationship to Policy Rodriguez [facility] [employer] (WNR) MEDICARE ADVANTAGE [facility] (R) May 07, 2018 [id number] ANJU BAIG PATIENT [employer] [facility] (WNR) MEDICARE ADVANTAGE [facility] ([facility]) May 07, 2021 [id number] [phone] ANJU BAIG PATIENT [employer] [facility] (WNR) MEDICARE ADVANTAGE [facility] (WNR) May 07, 2019 [id number] [phone] ANJU BAIG PATIENT [employer] [facility] (WNR) MEDICARE ADVANTAGE [facility] (WNR) May 07, 2019 [id number] ANJU BAIG PATIENT [employer] [facility] (WNR) MEDICARE ADVANTAGE [facility] (R) May 07, 2019 [id number] JOVANNIANJU PATIENT Selected Encounter This section includes the information on record at [place] for the Encounter. Date/Time Encounter Type Encounter Description Reason Provider Source Jul 13, 2023 10:00 AM ORTHC/PROSTC MGMT SBSQ ENC PROSTHETICS/ORTHOT ICS ICD-10-CM M25.375 Other instability, left foot AMEE PARRISH Robert E Encounter Template Text not used by ND Assessments - Encounter Diagnoses This section includes the primary and secondary diagnoses documented for the Encounter. Date/Time Primary/Secondary Diagnosis Diagnosis Name Provider Source Jul 13, 2023 11:05 AM PRIMARY Other instability, left foot AMEE PARRISH [facility] Social History: Smoking Status (Most current) and [...] September 22, 2021 ADVANCE DIRECTIVE RICHARD [facility]ENC[facility] September 22, 2021 ADVANCE DIRECTIVE DISCUSSION ROBERTO [facility]ENCIA [facility] Sep 01, 2016 ADVANCE DIRECTIVE DISCUSSION ROBERTO [facility]ENCIA [facility] Sep 01, 2016 ADVANCE DIRECTIVE RICHARD [facility]ENC[facility] Encounter Notes: All associated encounter notes This section contains the clinical notes associated to the Encounter. Date/Time Encounter Note(s) Provider Source Jul 13, 2023 11:01 AM ORTHOTICS PROSTHET ICS CONSULT: LOCAL TITLE: PROSTHETICS CONSULT STANDARD TITLE: ORTHOTICS PROSTHETICS CONSULT DATE OF NOTE: JUL 13, 2023@11:01 ENTRY DATE: JUL 13, 2023@11:01:22 AUTHOR: AMEE PARRISH EXP COSIGNER: URGENCY: STATUS: COMPLETED Provisional Diagnosis: Other Instability, right Foot(ICD-10-CM M25.374) Reason for visit: Fitting of ED shoes and custom functional foot orthotics DELIVERY: 1 pair EDS and 2 pair custom inserts. Patient was seen in the prosthetics department for item(s) delivery. Patient donned and ambulated, clinician did not notice any shuffling or abnormal gait as a result of EDS/FO. Patient states that they like the fit and look of EDS. No discomfort with FO and pleased with service and product. MODIFICATIONS: Patient was unable to don [place] style EDS, clinician will return item for larger width and mail to patient's residence. Second pair of custom inserts were fit to patient current shoes. Supply to be Returned: Vendor: Dr Lomas Item description: [place] Man Rodriguez - 10 Wide Part #: [id number] Quantity: 1 pair EDUCATION: Education was provided to patient during this encounter. Patient indicated readiness to learn about educational information re: the following topics: donning/doffing, wash/care instructions, how to report a concern. Additional education training is not indicated. Patient denies further questions. Clinician will call and mail item(s)/device(s) upon receipt or completed fabrication. Patient will call with any further questions or concerns. Supply to be ordered: Vendor: Dr Lomas Item description: [place] Man Rodriguez - 10 XW Part #: [id number] Quantity: 1 pair [facility] ED Code: [id number] Deliver to: [facility]/Prosthetics Department (121) /jody/ Amee Parrish SENIOR BUSINESS DEVELOPMENT ANALYST Signed: 07/13/2023 11:06 Receipt Acknowledged By: 07/13/2023 14:47 /jody/ CHIQUIS BUNCH CPO CHIEF - OPPCS AMEE PARRISH [facility]
--- OUTSIDE RECORDS SUMMARY | 2023-09-11 07:05 | XMS_ITS | Clinical Summary ---
Author Name Unknown Organization [employer] [facility] Address [place], [place] [address] Care Team Providers Care Floor Hand Name Role Phone Maria Luisa Ross MD Primary Care Provider Allergies Active Allergy Reactions Criticality Noted Date Comments Amoxicillin-Pot Clavulanate Hives 10/02/2014 Morphine Other - Describe In Comment Field 11/06/2006 Severe vomiting Severe vomiting Sulfa (Sulfonamide Antibiotics) Hives,*Unknown - Follow up needed 11/06/2006 Rash Medications Medication Sig Dispensed Refills Start Date End Date Status albuterol HFA (PROAIR HFA) 90 mcg/actuation inhaler Inhale 2 Puffs by mouth every 4 hours if needed. Active omega-3 fatty acids (FISH OIL) cap Take 1,000 mg by mouth once daily. Active psyllium (METAMUCIL) 0.52 gram capsule Take 2 capsules by mouth once daily. Active amLODIPine (NORVASC) 2.5 mg tablet Take 2.5 mg by mouth once daily. Active MILK THISTLE ORAL Take 1,000 mg by mouth once daily. Active turmeric root extract 500 mg cap Take 1 Tab by mouth once daily. Active multivitamin (MULTIPLE VITAMINS) tablet Take 1 tablet by mouth once daily. Takes 1/2 tab every other day 0 03/27/2016 Active cyanocobalamin (VITAMIN B12) 100 mcg tablet Take 1 tablet by mouth once daily. 0 03/27/2016 Active pravastatin (PRAVACHOL) 20 mg tablet Take 20 mg by mouth once daily. Active omeprazole (PRILOSEC) 20 mg Delayed-Release capsule Take 20 mg by mouth once daily before a meal. Active ketotifen (ZADITOR) 0.025 % (0.035 %) ophthalmic solution Place 1 Drop into both eyes two times daily. 04/24/2022 Active cephalexin (KEFLEX) 500 mg capsuleIndications: Cellulitis of great toe of right foot Take 2 capsules by mouth twice daily for 10 days for infection 40 Capsule 04/07/2023 Active Active Problems Problem Noted Date Diagnosed Date Renal cyst, left 03/27/2016 Encounters Date Type Department Care Team Description 07/27/2023 Lab Requisition [facility] [phone] Eulalio Rondon MD from Last 3 Months Social History Tobacco Use Types Packs/Day Years Used Date Smoking Tobacco: Former Cigarettes Q uit: 05/07/1999 Smokeless Tobacco: Never Tobacco Cessation:Counseling Given: Not Answered Alcohol Use Standard Drinks/Week Comments Not Currently 0 (1 standard drink = 0.6 oz pur e alcohol) occasional Sex and Gender Information Value Date Recorded Sex Assigned at Not on file Gender Identity Not on file Sexual Orientation Not on file Obstetrics History Last Filed Vital Signs Vital Sign Reading Time Taken Comments Blood Pressure 145/90 04/07/2023 8:45 AM LITERARY AGENT Pulse 74 04/07/2023 8:45 AM LITERARY AGENT Temperature 36.8 ??C (98.3 ??F) 04/07/2023 8:45 AM CS T Respiratory Rate 20 04/07/2023 8:45 AM LITERARY AGENT Oxygen Saturation 98% 04/07/2023 8:45 AM LITERARY AGENT Inhaled Oxygen Concentration - - Weight 83.9 kg (185 lb) 04/07/2023 8:45 AM LITERARY AGENT Height 161 cm (5' 3.39) 10/05/2014 6:50 AM CDT Body Mass Index 32.37 10/05/2014 6:50 AM CDT Plan of Treatment Health Maintenance Due Date Last Done Comments Tdap 1961 Depression screening for age 12+ 1962 BMI (ht and wt on same day) for age 18+ 1968 Hepatitis C screening for age 18-79 1968 Tetanus booster 1970 Colonoscopy through age 75 1995 Lipids for age 45-75 1995 Zoster (shingles) series for age 50+ (1 of 2) 2000 AAA screening age 65-74 2015 Medicare Wellness for age 65+ 2015 Pneumococcal series for age 65+ (1 of 1 - PCV) 2015 Influenza for age 65+ 01/06/2024 COVID-19 vaccine series Completed 06/13/2023, 06/05 Procedures Procedure Name Priority Date/Time Associated Diagnosis Comments LAB TRACKING EVENT Routine 07/27/2023 10 :35 AM CDT PATH TISSUE EXAM Routine 07/27/2023 10:3 5 AM CDT from Last 3 Months Results * LAB TRACKING EVENT (07/27/2023 10:35 AM CDT) Other (Other) Client Collect / Unknown 07/27/2023 10:35 AM CDT 07/27/2023 9:25 PM CDT Eulalio Rondon MD LAB BILL ONLY [facility] [address] [place] [address], * PATH TISSUE EXAM (07/27/2023 10:35 AM CDT) Case Report Pathology Report ?Case: [id number] ? Authorizing Provider: ??Eulalio Rondon MD ?Collected: ? 07/27/2023 1035 ? Ordering Location: ? [facility] ?Received: ?07/28/2023 0521 ? Pathologist: ? Dusty Mccann MD ? Specimens: ?? A) - Duodenum Biopsy ? B) - Stomach Biopsy ? C) - Esophageal Biopsy ? 07/31/2023 9:46 AM [facility] Final Diagnosis A) DUODENUM, BIOPSY: 1. Duodenal mucosa with no diagnostic abnormalities 2. Negative for celiac disease and other enteropathy B) STOMACH, BIOPSY: 1. Gastric body mucosa with no diagnostic abnormalities 2. Negative for Helicobacter C) ESOPHAGUS, DISTAL, BIOPSY: 1. Squamous mucosa with no diagnostic abnormality 2. Gastric cardia type mucosa with no diagnostic abnormalities 3. Negative for reflux changes and eosinophilic esophagitis 4. Negative for intestinal metaplasia and dysplasia 07/31/2023 9:46 AM [facility] Clinical Information Mr. Ragland is a 73 y.o. with dysphagia symptoms that prompted upper GI endoscopy which showed no gross mucosal lesions. Biopsies obtained to rule out microscopic disease. 07/31/2023 9:46 AM [facility] Gross Description A) Received in formalin is a bunch mucosal fragment measuring 4 mm in greatest dimension, which is entirely submitted in one cassette. It is labeled with the patient's name and designated duodenum biopsy. B) Received in formalin are 5 bunch mucosal fragments ranging from 2 mm to 4 mm in greatest dimension, which are entirely submitted in one cassette. It is labeled with the patient's name and designated random stomach biopsy. C) Received in formalin are 4 bunch mucosal fragments ranging from 2 mm to 4 mm in greatest dimension, which are entirely submitted in one cassette. It is labeled with the patient's name and designated distal esophagus biopsy. Riya Napier 07/28/2023 8:18 AM 07/31/2023 9:46 AM CDT [facility] Microscopic Description The final diagnosis is based on microscopic examination of appropriate sections of all specimens. 07/31/2023 9:46 AM CDT [facility] Additional Information Interpreted at [facility] Extended Stay [facility] - [address] [place] [address] [facility] [address], [place] [address] 07/31/2023 9:46 AM CDT [facility] Other (Duodenum Biopsy) 07/27/2023 10:35 AM CDT 07/28/2023 5:21 AM CDT Specimen (specimen) (Stomach Biopsy) 07/27/2023 10:35 AM CDT 07/28/2023 5:21 AM CDT Specimen (specimen) (Esophageal Biopsy) 07/27/2023 10:35 AM CDT 07/28/2023 5:21 AM CDT Eulalio Rondon MD PATHOLOGY/CYTOLOGY [facility] [address] [place] [address], from Last 3 Months Advance Directives * Full Code (Latest Code Status on File) Date Activated Date Inactivated Comments 10/05/2014 9:50 AM 10/05/2014 3:57 PM * Full Code Date Activated Date Inactivated Comments 10/05/2014 5:46 AM 10/05/2014 9:50 AM Care Teams Floor Hand Relationship Specialty Start Date End Date Maria Luisa Ross MD [address] [place] [address] PCP - General Internal Medicine 02/12/17
--- OUTSIDE RECORDS SUMMARY | 2023-09-11 07:05 | XMS_ITS | Encounter Summary ---
Author Name Unknown Organization [place] Address [address] [facility] [place] [address] Care Team Providers Care Regulatory Affairs Analyst Name Role Phone Silviano Alfaro MD Primary Care Provider Maria Luisa Ross MD Primary Care P rovider Maria Luisa Ross MD Unavailable Maria Luisa Ross MD Unavailable Karthikeyan Christian MD Primary Care Provider Elenita yuilable Fabien Trevino MD Unavailable [phone] Eulalio Rondon MD Primary Care Provider Fabien Trevino MD Unavailable Encounter Details Date Type Department Care Team (Late st Contact Info) Description 06/20/2016 Telephone M [facility] Imaging [address] [place] [address] Alona Gutiérrez, RN Social History Tobacco Use Types Packs/Day Years Used Date Smoking Tobacco: Former Alcohol Use Standard Drinks/Week Comments Yes 0 (1 standard drink = 0.6 oz pur e alcohol) occasionally Sex and Gender Information Value Date Recorded Sex Assigned at Not on file Gender Identity Not on file Sexual Orientation Not on file documented as of this encounter Miscellaneous Notes * Telephone Encounter - Alona Gutiérrez RN - 06/20/2016 10:40 AM COMMUNITY THEATER ACTOR Felicia at DR. Trevino's office informed of this visit events of [address] Galindo. IR to follow as needed. UNITY THEATER ACTOR documented in this encounter Plan of Treatment Not on file documented as of this encounter Visit Diagnoses Not on filedocumented in this encounter Care Teams Regulatory Affairs Analyst Relationship Specialty Start Date End Date Silviano Alfaro MD PCP - General Family Practice 01/03/13 08/24/16 Maria Luisa Ross MD [address] [place] [address] PCP - General Internal Medicine 08/25/16 11/11/18 Maria Luisa Ross MD [address] [address] PCP - Assigned PCP 10/14/17 07/09/18 Karthikeyan Christian MD [address] [facility] [place] [address] PCP - General Family Practice 11/12/18 01/18/[address] [facility] [address] [place] [address] PCP - General Emergency Medicine 01/19/20 Maria Luisa Ross MD [address] [place] [address] Assigned PCP 10/14/17 10/09/20 Fabien Trevino MD [address] [facility] [address] [place] [phone] Urology 05/19/19 Fabien Trevino MD [address] [place] [phone] Assigned Surgical Provider 02/27/20 12/25/20 documented as of this encounter
--- OUTSIDE RECORDS SUMMARY | 2023-09-11 07:05 | XMS_ITS | Encounter Summary ---
Author Name Unknown Organization [place] Address [address] [facility] [place] [address] Care Team Providers Care Landscape Supervisor Name Role Phone Silviano Alfaro MD Primary Care Provider Maria Luisa Ross MD Primary Care P rovider Maria Luisa Ross MD Unavailable Maria Luisa Ross MD Unavailable Karthikeyan Christian MD Primary Care Provider Elenita yuilable Fabien Trevino MD Unavailable Eulalio Rondon MD Primary Care Provider Fabien Trevino MD Unavailable Encounter Details Date Type Department Care Team (Late st Contact Info) Description 06/26/2016 Telephone M [facility] Imaging [address] [place] [address] Alona Gutiérrez, RN Social History Tobacco Use [...] Telephone Encounter - Alona Gutiérrez RN - 06/26/2016 9:38 AM CST Received call from pt stating feels much better with specific pain associated with kidney cyst. Much better after aspiration. Pt has IR nurse phone number if similar pain returns to discuss plan. GEMENT DEPARTMENT CHAIR documented in this encounter Plan of Treatment Not on file documented as of this encounter Visit Diagnoses Not on filedocumented in this encounter Care Teams Landscape Supervisor Relationship Specialty Start Date End Date Silviano Alfaro MD PCP - General Family Practice 01/03/13 08/24/16 Maria Luisa Ross MD [address] [place] [address] PCP - General Internal Medicine 08/25/16 11/11/18 Maria Luisa Ross MD [address] [place] [address] PCP - Assigned PCP 10/14/17 07/09/18 Karthikeyan Christian MD [address] [facility] [place] [address] PCP - General Family Practice 11/12/18 01/18/20 Eulalio Rondon MD [address] [address] PCP - General Emergency Medicine 01/19/20 Maria Luisa Ross MD [address] [place] [address] Assigned PCP 10/14/17 10/09/20 Fabien Trevino MD [address] [place] [phone] Urology 05/19/19 Fabien Trevino MD [address] [place] [phone] Assigned Surgical Provider 02/27/20 12/25/20 documented as of this encounter
--- OUTSIDE RECORDS SUMMARY | 2023-09-11 07:05 | XMS_ITS | Encounter Summary ---
Author Name Unknown Organization [place] Address [address] [facility] [place] [address] Care Team Providers Care Typo Machine Operator Name Role Phone Maria Luisa Ross MD Primary Care P rovider Maria Luisa Ross MD Unavailable Maria Luisa Ross MD Unavailable Karthikeyan Christian MD Primary Care Provider Elenita vailable Fabien Trevino MD Unavailable [phone] Eulalio Rondon MD Primary Care Provider Fabien Trevino MD Unavailable [phone] Encounter Details Date Type Department Care Team (Late st Contact Info) Description 09/18/2017 [facility] - [facility] CONVERSION Scan, Non-Provider Social History Tobacco Use Types Packs/Day Years Used Date Smoking Tobacco: Former Cigarettes Q uit: 09/07/1999 Smokeless Tobacco: Never Alcohol Use Standard Drinks/Week Comments Yes 0 (1 standard drink = 0.6 oz pur e alcohol) occasionally Sex and Gender Information Value Date Recorded Sex Assigned at Not on file Gender Identity Not on file Sexual Orientation Not on file documented as of this encounter Plan of Treatment Not on file documented as of this encounter Visit Diagnoses Not on filedocumented in this encounter Care Teams Typo Machine Operator Relationship Specialty Start Date End Date Maria Luisa Ross MD [address] [place] [address] PCP - General Internal Medicine 08/25/16 11/11/18 Maria Luisa Ross MD [address] [place] [address] PCP - Assigned PCP 10/14/17 07/09/18 Karthikeyan Christian MD [address] [place] [address] PCP - General Family Practice 11/12/18 01/18/20 Eulalio Rondon MD [facility] [address] [place] [address] PCP - General Emergency Medicine 01/19/20 Maria Luisa Ross MD [address] [place] [address] Assigned PCP 10/14/17 10/09/20 Fabien Trevino MD [address] [place] [phone] Urology 05/19/19 Fabien Trevino MD [address] [place] [phone] Assigned Surgical Provider 02/27/20 12/25/20 documented as of this encounter
--- OUTSIDE RECORDS SUMMARY | 2023-09-11 07:05 | XMS_ITS | Clinical Summary ---
Author Name Unknown Organization [place] Address [address] [facility] [place] [address] Care Team Providers Care Wind Turbine Mechanic Name Role Phone Fabien Trevino MD Unavailable [phone] Eulalio Rondon MD Primary Care Provider Allergies Active Allergy Reactions Criticality Noted Date Comments Amoxicillin-Pot Clavulanate 11/07/19 07 Rash Morphine Sulfate-Nacl 11/06/2006 Severe vomiting Sulfa Antibiotics Hives 11/06/2006 Rash Medications Medication Sig Dispensed Refills Start Date End Date Status atorvastatin (LIPITOR) 20 MG tabletIndications:Hyp erlipidemia LDL goal <130 Take 0.5 tablets (10 mg) by mouth daily 15 tablet 08/01/2016 Active albuterol (PROAIR HFA/PROVENTIL HFA/VENTOLIN HFA) 108 (90 BASE) MCG/ACT Inhaler Inhale 2 puffs into the lungs every 4 hours as needed Active amLODIPine (NORVASC) 2.5 MG tablet Take 5 mg by mouth daily Active [place]-3 Fatty Acids (FISH OIL) 1200 MG capsule Take 1,200 mg by mouth 2 times daily Active vitamin B complex with vitamin C (VITAMIN B COMPLEX) TABS tablet Take 1 tablet by mouth daily Active ciprofloxacin (CIPRO) 500 MG tabletIndications:Dys uria Take 1 tablet (500 mg) by mouth 2 times daily 10 tablet 10/16/2017 Active cyclobenzaprine (FLEXERIL) 5 MG tablet Take 5 mg by mouth as needed 11/09/2017 Active omeprazole (PRILOSEC) 20 MG CR capsule Take 20 mg by mouth daily Active Multiple Vitamin (MULTI-VITAMINS) TABS Take 1 tablet by mouth daily 03/27/2016 Active cholecalciferol (VITAMIN D3) 5000 units TABS tablet Take 5,000 Units by mouth daily Active B Complex Vitamins (VITAMIN-B COMPLEX) TABS Take 1 tablet by mouth daily Active Active Problems Problem Noted Date Diagnosed Date Advance Care Planning 08/01/2016 Overview: Advance Care Planning 08/01/2016: ACP Review of Chart / Resources Provided: Reviewed chart for advance care plan. Dennys Ragland has an advance care plan on file which needs to be updated. Patient states presence of new/updated ACP document. 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 Provider to review Stiffness of joint, not else where classified, forearm 02/11/2009 04/13/2009 Pain in joint, forearm 02/11/200904/13 Generalized osteoarthrosis of hand 02/11/2009 04/13/2009 Overview: Problem list name updated by automated process. Provider to review Other postprocedural status(V45.89) 02/11/2009 04/13/2009 Immunizations Name Administration Dates Next Due Influenza (High Dose) 3 valent vaccine 7,03/14/2016 Pneumo Conj 13-V (2010&after) 06/15/2016 Pneumococcal 23 valent 07/02/2014,05/29/2000 TDAP Vaccine (Adacel) 06/15/2016 Family History Medical History Relation Comments No Known Problems Brother Heart Disease Father Heart Failure Father No Known Problems Maternal Aunt No Known Problems Maternal Grandfather No Known Problems Maternal Grandmother No Known Problems Maternal Uncle No Known Problems Mother No Known Problems Paternal Aunt No Known Problems Paternal Grandfather No Known Problems Paternal Grandmother No Known Problems Paternal Uncle No Known Problems Sister 3 Relation Status Comments Brother Father Maternal Aunt Maternal Grandfather Maternal Grandmother Maternal Uncle Mother Paternal Aunt Paternal Grandfather Paternal Grandmother Paternal Uncle Sister 1 Alive Sister 2 Alive Sister 3 Social History Tobacco Use Types Packs/Day Years Used Date Smoking Tobacco: Former Cigarettes Q uit: 09/07/1999 Smokeless Tobacco: Never Tobacco Cessation:Counseling Given: No Alcohol Use Standard Drinks/Week Comments Yes 0 (1 standard drink = 0.6 oz pur e alcohol) occasionally PHQ-2 Answer Date Recorded PHQ-2 Score 0 06/26/2019 Adolescent Education Answer Date Record ed Getting School Help Needed Not on file 02/04 Sex and Gender Information Value Date Recorded Sex Assigned at Not on file Gender Identity Not on file Sexual Orientation Not on file Last Filed Vital Signs Vital Sign Reading Time Taken Comments Blood Pressure 132/66 06/26/2019 8:36 AM KNOWLEDGE ANALYST Pulse 72 06/26/2019 8:36 AM KNOWLEDGE ANALYST Temperature 36.8 ??C (98.2 ??F) 10/02/2017 10:23 AM C DT Respiratory Rate 24 10/02/2017 10:23 AM CDT Oxygen Saturation 98% 01/02/2019 10:56 AM CDT Inhaled Oxygen Concentration - - Weight 83.9 kg (185 lb) 06/26/2019 8:36 AM KNOWLEDGE ANALYST Height 165.1 cm (5' 5) 06/26/2019 8:36 AM KNOWLEDGE ANALYST Body Mass Index 30.79 06/26/2019 8:36 AM KNOWLEDGE ANALYST Plan of Treatment Not on file Medical Devices Implanted Type Area Commercial Artist Lettering Device Identifier Shelf Expiration Date Model / Serial / Lot Plate Adaptation 90mm 20 Holes - Sna Implanted:Qty : 2 on 10/09/2017 Metallic Hardware/An chor Left: Spine Cervical SYNTHES 446.10 / NA / NA Screw Cortex Sd 1.5x4mm - Sn.A. Implanted:Qty : 6 on 10/09/2017 Metallic Hardware/An chor Left: Spine Cervical SYNTHES 400.054E / N.A. / N.A. Screw Bilateral: Wrist Graft Bone Chips Canc 05ml Implanted:Qty : 1 on 04/28/2011 at [facility] Right: Wrist 01/11/2014 [id number] / [id number] / Graft Bone Putty Dbx 01ml [id number] Implanted:Qty : 1 on 04/28/2011 at [facility] Right: Wrist 11/02/2012 [id number] / [id number] / [place] Easy Clip Implanted:Qty : 1 on 04/28/2011 at [facility] Right: Wrist SONIYA SP 12/28/2015 EZ15-15 / / [id number] Drill Bit Implanted: (Quantity not on file) Right: Wrist [employer] XFO / / [id number] Wire Jolie 0.045x4 Implanted:Qty : 1 on 04/28/2011 at [facility] 78.2020 / / Wire Jolie 0.062x4 Implanted:Qty : 1 on 04/28/2011 at [facility] 78.2030 / / Short Bend Plate Wrist Fusion Implanted:Qty : 1 on 01/21/2013 by Ramya Tom MD at [facility] Right: Wrist SYNTHES 04.110.1 50120 JAN 2013 3.5 Cortex 16mm Screw Implanted:Qty : 1 on 01/21/2013 by Ramya Tom MD at [facility] Right: Wrist SYNTHES 04.200.0 50120 JAN 2013 3.5 Cortex 18mm Screw Implanted:Qty : 2 on 01/21/2013 by Ramya Tom MD at [facility] Right: Wrist SYNTHES 04.200.0 50120 JAN 2013 3.5 Cortex 24 Mm Screw Implanted:Qty : 1 on 01/21/2013 by Ramya Tom MD at [facility] Right: Wrist SYNTHES 04.200.0 50120 JAN 2013 2.7 Locking 18mm Implanted:Qty : 1 on 01/21/2013 by Ramya Tom MD at [facility] Right: Wrist SYNTHES 402.218 50120 JAN 2013 2.7 Locking 16mm Implanted:Qty : 1 on 01/21/2013 by Ramya Tom MD at [facility] Right: Wrist SYNTHES 402.216 / / [id number] 20 JAN 2013 2.7 Locking 14mm Implanted:Qty : 2 on 01/21/2013 by Ramya Tom MD at [facility] Right: Wrist SYNTHES 402.214 / / [id number] 20 JAN 2013 Imp [place] Arthrex Corkscrew Mini Full Thread Ti Ar-1319ft Implanted:Qty : 2 on 01/21/2013 by Ramya Tom MD at [facility] Right: Wrist ARTHREX 01/04/2017 AR-[id number] T / / [id number] Graft Bone Chips Canc 05ml Implanted:Qty : 1 on 01/21/2013 by Ramya Tom MD at [facility] Right: Wrist MUSCULOSKELETAL CRUZ 08/03/2015 [id number] / [id number] / Graft Soft Tissue Achilles Tendon W/O Bone [id number] Implanted:Qty : 1 on 01/21/2013 by Ramya Tom MD at [facility] Right: Wrist MUSCULOSKELETAL CRUZ 03/30/2015 [id number] / [id number] / Explanted Type Area Commercial Artist Lettering Device Identifier Shelf Expiration Date Model / Serial / Lot [place]ado Easy Clip Implanted:Qty: 1 on 04/28/2011 at [facility] Explanted:Qty: 1 on 01/21/2013 by Ramya Tom MD at [facility] Right: Wrist [employer] 12/28/2015 EZ15-15 / / [id number] PAB Advance Directives For more information, please contact: [phone] Documents on File Type Date Recorded Patient Purchasing And Claims Supervisor Expl anation Advance Directives and Living Will 09/07/2016 12:54 PM Health Care Directiv e 08/13/16 Healthcare Agents on File Name Relationship Healthcare Agent Relationship Communication Warren Ragland Daughter Health Care Agent Harmeet Ragland Son First Alternate Health Care Agent Care Teams Wind Turbine Mechanic Relationship Specialty Start Date End Date Eulalio Rondon MD [facility] [address] [place] [address] PCP - General Emergency Medicine 01/19/20 Fabien Trevino MD [address] [place] [phone] Urology 05/19/19
--- OUTSIDE RECORDS SUMMARY | 2023-09-11 07:05 | XMS_ITS | Encounter Summary ---
Author Name Department of Vetera Affairs Organization Department of Vetera [facility] Address [address] [place] [address] Support Name Relationship Address Phone NIVIA GAITAN Next of Kin [address] [place] [address] NIVIA GAITAN Emergency Contact [address] [place] [address] Insurance Providers: All historical and [...] Patient's Relationship to Policy Rodriguez [facility] (WNR) MEDICARE ADVANTAGE [facility] (WNR) May 07, 2018 [id number] [phone] ANJU BAIG PATIENT [employer] [facility] (WNR) MEDICARE ADVANTAGE [facility] (WNR) May 07, 2021 [id number] ANJU BAIG PATIENT [employer] [facility] (WNR) MEDICARE ADVANTAGE [facility] (WNR) May 07, 2019 [id number] ANJU BAIG PATIENT [employer] [facility] (WNR) MEDICARE ADVANTAGE [facility] (WNR) May 07, 2019 [id number] ANJU BAIG PATIENT [employer] [facility] (WNR) MEDICARE ADVANTAGE [facility] (WNR) May 07, 2019 [id number] JOVANNI ANJU PATIENT Selected Encounter This section includes the information on record at [place] for the Encounter. Date/Time Encounter Type Encounter Description Reason Pro vider Source Aug 14, 2023 10:51 AM Outpatient Encounter EVENT (HISTORICAL) IHE Encounter Template Text not used by [facility] Social History: Smoking Status (Most current) and Tobacco Use (All prior to encounter date) This section includes the most current, and the historical, smoking and tobacco- related health factors from the [facility] facility where the Encounter took place. Current Smoking Status This section includes the most current smoking, or tobacco-related health factor, from the [place] facility where the Encounter took place. Date/Time Current Smoking Status Comment Facil ity Nov 14, 2006 09:22 AM FORMER TOBACCO USER 7Y OR GREATE R [facility] Advance Directives: All historical and current Section Date Range: From patient's date of to the date document was created. This section includes ALL of a patient's completed or amended [place] Advance and Rescinded Directives. The entries below indicate that a directive exists for the patient, but an actual copy is not included with this document. The data comes from all [place] facilities. Date Advance Directives Provider Source September 22, 2021 ADVANCE DIRECTIVE RICHARD [facility]ASCENCIA [facility] September 22, 2021 ADVANCE DIRECTIVE DISCUSSION ROBERTO [facility] Sep 01, 2016 ADVANCE DIRECTIVE DISCUSSION ROB[facility] Sep 01, 2016 ADVANCE DIRECTIVE [facility]ARD [facility]
--- OUTSIDE RECORDS SUMMARY | 2023-09-11 07:05 | XMS_ITS | Encounter Summary ---
Author Name Department of Vetera Affairs Organization Department of [facility] Address [address] [place] [address] Support Name Relationship Address Phone NIVIA GAITAN Next of Kin [address] [place] [address] NIVIA GAITAN Emergency Contact [address] [place] [address] Insurance Providers: All historical and [...] Patient's Relationship to Policy Rodriguez [facility] (WNR) MEDICARE ADVANTAGE [facility] (WNR) May 07, 2018 [id number] [phone] ANJU BAIG PATIENT [employer] [facility] (WNR) MEDICARE ADVANTAGE [facility] (WNR) May 07, 2021 [id number] ANJU BAIG PATIENT [facility] (WNR) MEDICARE ADVANTAGE [facility] (WNR) May 07, 2019 [id number] ANJU BAIG PATIENT [facility] (WNR) MEDICARE ADVANTAGE [facility] (WNR) May 07, 2019 [id number] ANJU BAIG PATIENT [facility] (WNR) MEDICARE ADVANTAGE [facility] (WNR) May 07, 2019 [id number] JOVANNI ANJU PATIENT Selected Encounter This section includes the information on record at [place] for the Encounter. Date/Time Encounter Type Encounter Description Reason Pro vider Source Aug 22, 2023 12:00 PM Outpatient Encounter PRIMARY CARE/MEDICINE IHE Encounter Template Text not used by [place] Social History: Smoking Status (Most current) and Tobacco Use (All prior to encounter date) This section includes the most current, and the historical, smoking and tobacco- related health factors from the [place] facility where the Encounter took place. Current Smoking Status This section includes the most current smoking, or tobacco-related health factor, from the [place] facility where the Encounter took place. Date/Time Current Smoking Status Comment Facil ity Nov 14, 2006 09:22 AM FORMER TOBACCO USER 7Y OR GREATE R [facility] Advance Directives: All historical and current Section Date Range: From patient's date of to the date document was created. This section includes ALL of a patient's completed or amended [place] Advance and Rescinded Directives. The entries below indicate that a directive exists for the patient, but an actual copy is not included with this document. The data comes from all [place] facilities. Date Advance Directives Provider Source September 22, 2021 ADVANCE DIRECTIVE RICHARD PLASCENCIA [facility] September 22, 2021 ADVANCE DIRECTIVE DISCUSSION ROBERTO PLASCENCIA [facility] Sep 01, 2016 ADVANCE DIRECTIVE DISCUSSION ROBERTO PLASCENCIA [facility] Sep 01, 2016 ADVANCE DIRECTIVE RICHARD PLASCENCIA [facility] Encounter Notes: All associated encounter notes This section contains the clinical notes associated to the Encounter. Date/Time Encounter Note(s) Provider Source Aug 22, 2023 12:00 PM NONVA CONSULT: LOCAL TITLE: COMMUNITY CARE CONSULT RESULT CHIROPRACTIC STANDARD TITLE: NONVA CONSULT DATE OF NOTE: AUG 22, 2023@12:00 ENTRY DATE: SEPTEMBER 05, 2023@09:40:04 AUTHOR: MERYL VALDES EXP COSIGNER: URGENCY: STATUS: COMPLETED VistA Imaging - Scanned Document SCANNED DOCUMENT SIGNATURE NOT REQUIRED Electronically Filed: 09/05/2023 by: MERYL VALDES LPN Staff Nurse MERYL VALDES [facility]
--- OUTSIDE RECORDS SUMMARY | 2023-09-11 07:05 | XMS_ITS | Encounter Summary ---
Author Name Department of Vetera Affairs Organization [facility] Address [address] [place] [address] Support Name Relationship Address Phone NIVIA GAITAN Next of Kin [address] [place] [address] NIVIA GAITAN Emergency Contact [address] [place] [address] Insurance Providers: All historical and [...] Patient's Relationship to Policy Rodriguez [facility] (WNR) MEDICARE ADVANTAGE [facility] (WNR) May 07, 2018 [id number] [phone] ANJU BAIG PATIENT [employer] [facility] (WNR) MEDICARE ADVANTAGE [facility] (WNR) May 07, 2021 [id number] ANJU BAIG PATIENT [employer] [facility] (WNR) MEDICARE ADVANTAGE [facility] (WNR) May 07, 2019 [id number] [phone] ANJU BAIG PATIENT [facility] [facility] (WNR) MEDICARE ADVANTAGE [facility] (WNR) May 07, 2019 [id number] ANJU BAIG PATIENT [facility] (WNR) MEDICARE ADVANTAGE [facility] (WNR) May 07, 2019 [id number] [phone] JOVANNIANJU PATIENT Selected Encounter This section includes the information on record at ID for the Encounter. Date/Time Encounter Type Encounter Description Reason Pro vider Source Aug 22, 2023 11:00 AM Outpatient Encounter PRIMARY CARE/MEDICINE IHE Encounter Template Text not used by ID Social History: Smoking Status (Most current) and Tobacco Use (All prior to encounter date) This section includes the most current, and the historical, smoking and tobacco- related health factors from the [place] facility where the Encounter took place. Current Smoking Status This section includes the most current smoking, or tobacco-related health factor, from the [place] facility where the Encounter took place. Date/Time Current Smoking Status Comment Facil ity Nov 14, 2006 09:22 AM FORMER TOBACCO USER 7Y OR GREATE R [facility] Advance Directives: All historical and current Section Date Range: From patient's date of to the date document was created. This section includes ALL of a patient's completed or amended [place] Advance and Rescinded Directives. The entries below indicate that a directive exists for the patient, but an actual copy is not included with this document. The data comes from all [place] facilities. Date Advance Directives Provider Source September 22, 2021 ADVANCE DIRECTIVE RICHARD PLASCENCIA [facility] September 22, 2021 ADVANCE DIRECTIVE DISCUSSION ROBERTO PLASCENCIA [facility] Sep 01, 2016 ADVANCE DIRECTIVE RICHARD PLASCENCIA [facility] Sep 01, 2016 ADVANCE DIRECTIVE DISCUSSION ROBERTO PLASCENCIA [facility] Encounter Notes: All associated encounter notes This section contains the clinical notes associated to the Encounter. Date/Time Encounter Note(s) Provider Source Aug 22, 2023 11:27 AM ADDENDUM: LOCAL TITLE: Addendum STANDARD TITLE: ADDENDUM DATE OF NOTE: AUG 22, 2023@11:27:28 ENTRY DATE: AUG 22, 2023@11:27:29 AUTHOR: LIA RIZOIGNER: URGENCY: STATUS: COMPLETED Appears Dr. Cabrera is with [facility]. Pt was last seen in May 2023, he should be able to call Podiatry directly to schedule a follow up appt. Alerting HALIMA to please assist with contacting and providing the contact number for specialty scheduling. Thank you! /jody/ LIA RIZORN REGISTERED NURSE Signed: 08/22/2023 11:29 Receipt Acknowledged By: 08/23/2023 08:30 /jody/ ANGEL CARRILLO [facility] --- Original Document --- 08/22/23 PATIENT CONTACT NOTE: Patient contact Name of Caliente: ANJU BAIG Name/Relationship of Contact if other than : Date & Time of Contact: Aug@11:01 Type of Contact: Telephone Reason for Contact: Caliente left a message that he is still having problems with his right foot. He would like to get an appointment with Dr. Cabrera at the [facility]. Please return call. /es/ RT BRANNON(R) DIAGNOSTIC INFORMATION TECHNOLOGY ASSISTANT Signed: 08/22/2023 11:02 Receipt Acknowledged By: 08/22/2023 11:27 /jody/ LIA RIZO RN REGISTERED NURSE LIA RIZO [facility] Aug 22, 2023 11:01 AM REPORT OF CONTACT: LOCAL TITLE: PATIENT CONTACT NOTE STANDARD TITLE: REPORT OF CONTACT DATE OF NOTE: AUG 22, 2023@11:01 ENTRY DATE: AUG 22, 2023@11:01:07 AUTHOR: ERI SEAY EXP COSIGNER: URGENCY: STATUS: COMPLETED PATIENT CONTACT NOTE Has ADDENDA Patient contact Name of Caliente: ANJU BAIG Name/Relationship of Contact if other than Caliente: Date & Time of Contact: Aug@11:01 Type of Contact: Telephone Reason for Contact: Caliente left a message that he is still having problems with his right foot. He would like to get an appointment with Dr. Cabrera at the [facility]. Please return call. /jody/ RT BRANNON(R) DIAGNOSTIC INFORMATION TECHNOLOGY ASSISTANT Signed: 08/22/2023 11:02 Receipt Acknowledged By: 08/22/2023 11:27 /jody/ LIA RIZO RN REGISTERED NURSE 08/22/2023 ADDENDUM STATUS: COMPLETED Appears Dr. Cabrera is with [facility] Podiat[facility]. Pt was last seen in May 2023, he should be able to call Podiatry directly to schedule a follow up appt. Alerting [facility] to please assist with contacting and providing the contact number for specialty scheduling. Thank you! /jody/ LIA RIZORN REGISTERED NURSE Signed: 08/22/2023 11:29 Receipt Acknowledged By: * AWAITING SIGNATURE * JOEY MULLEN,ERI ORTIZ OC
--- OUTSIDE RECORDS SUMMARY | 2023-09-11 07:05 | XMS_ITS | Referral Summary ---
Author Name Unknown Organization [facility] Address [address] [facility] [place] [address] Care Team Providers Care Shoe Puller Name Role Phone Fabien Trevino MD Unavailable [phone] Eulalio Rondon MD Primary Care Provider Allergies [...] Take 5 mg by mouth daily Active [place]-3 Fatty Acids (FISH OIL) 1200 MG capsule [...] 23 valent 07/02/2014,05/29/2000 TDAP Vaccine (Adacel) 06/15/2016 Social History Tobacco Use Types Packs/Day Years [...] Comments Blood Pressure 132/66 06/26/2019 8:36 AM CHIEF RADIATION THERAPIST Pulse 72 06/26/2019 8:36 AM CHIEF RADIATION THERAPIST Temperature 36.8 ??C (98.2 ??F) 10/02/2017 10:23 AM C DT Respiratory Rate 24 10/02/2017 10:23 AM CDT Oxygen Saturation 98% 01/02/2019 10:56 AM CDT Inhaled Oxygen Concentration - - Weight 83.9 kg (185 lb) 06/26/2019 8:36 AM CHIEF RADIATION THERAPIST Height 165.1 cm (5' 5) 06/26/2019 8:36 AM CHIEF RADIATION THERAPIST Body Mass Index 30.79 06/26/2019 8:36 AM CHIEF RADIATION THERAPIST Plan of Treatment Not on file Medical Devices Implanted Type Area Mechanical Design Engineer Products Device Identifier Shelf Expiration Date Model / [...] 05ml Implanted:Qty : 1 on 04/28/2011 at [facility] Right: Wrist 01/11/2014 [id number] / [id number] / Graft Bone Putty Dbx 01ml [id number] Implanted:Qty : 1 on 04/28/2011 at [facility] Right: Wrist 11/02/2012 [id number] / [id number] / Jason Easy Clip Implanted:Qty : 1 on 04/28/2011 at [facility] Right: Wrist JASON SP 12/28/2015 EZ15-15 / / [id number] PABF Drill Bit Implanted: (Quantity not on file) Right: Wrist [employer] XFO / / [id number] Wire Jolie 0.045x4 Implanted:Qty : 1 on 04/28/2011 at [facility] 78.2020 / / Wire Jolie 0.062x4 Implanted:Qty : 1 on 04/28/2011 at [facility] 78.2030 / / Short Bend Plate Wrist Fusion Implanted:Qty : 1 on 01/21/2013 by Ramya Tom MD at [facility] Right: Wrist SYNTHES 04.110.1 0502 20 JAN 2013 3.5 Cortex 16mm Screw Implanted:Qty : 1 on 01/21/2013 by Ramya Tom MD at [facility] Right: Wrist SYNTHES 04.200.0 0502 20 JAN 2013 3.5 Cortex 18mm Screw Implanted:Qty : 2 on 01/21/2013 by Ramya Tom MD at [facility] Right: Wrist SYNTHES 04.200.0 18 0502 20 JAN 2013 3.5 Cortex 24 Mm Screw Implanted:Qty : 1 on 01/21/2013 by Ramya Tom MD at [facility] Right: Wrist SYNTHES 04.200.0 24 0502 20 JAN 2013 2.7 Locking 18mm Implanted:Qty : 1 on 01/21/2013 by Ramya Tom MD at [facility] Right: Wrist SYNTHES 402.218 / / 0502 20 JAN 2013 2.7 Locking 16mm Implanted:Qty : 1 on 01/21/2013 by Ramya Tom MD at [facility] Right: Wrist SYNTHES 402.216 / / 0502 20 JAN 2013 2.7 Locking 14mm Implanted:Qty : 2 on 01/21/2013 by Ramya Tom MD at [facility] Right: Wrist SYNTHES 402.214 / / 0502 20 JAN 2013 Imp [place] Arthrex Corkscrew Mini Full Thread Ti Ar-1319ft Implanted:Qty : 2 on 01/21/2013 by Ramya Tom MD at [facility] Right: Wrist ARTHREX 01/04/2017 AR-1319F T / / [id number] Graft Bone Chips Canc 05ml Implanted:Qty : 1 on 01/21/2013 by Ramya Tom MD at [facility] Right: Wrist MUSCULOSKELETAL CRUZ 08/03/2015 [id number] / [id number] / Graft Soft Tissue Achilles Tendon W/O Bone [id number] Implanted:Qty : 1 on 01/21/2013 by Ramya Tom MD at [facility] Right: Wrist MUSCULOSKELETAL CRUZ 03/30/2015 [id number] / [id number] / Explanted Type Area Mechanical Design Engineer Products Device Identifier Shelf Expiration Date Model / Serial / Lot [place] Easy Clip Implanted:Qty: 1 on 04/28/2011 at [facility] Explanted:Qty: 1 on 01/21/2013 by Ramya Tom MD at [facility] Right: Wrist [employer] 12/28/2015 EZ15-15 / / [id number] PAB Advance Directives For more information, please contact: [phone] Documents on File Type Date Recorded Patient Mill Washer Expl anation Advance Directives and Living Will 09/07/2016 12:54 PM Health Care Directiv e 08/13/16 Healthcare Agents on File Name Relationship Healthcare Agent Relationship Communication [place] Ragland Daughter Health Care Agent Harmeet Ragland Son First Alternate Health Care Agent Care Teams Shoe Puller Relationship Specialty Start Date End Date Eulalio Rondon MD [facility] [address] [place] [address] PCP - General Emergency Medicine 01/19/20 Fabien Trevino MD [id number] [facility] [address] [place] [phone] Urology 05/19/19
--- OUTSIDE RECORDS SUMMARY | 2023-09-11 07:05 | XMS_ITS | Clinical Summary ---
Author Name Unknown Organization [facility] Address [address] [place] [address] Care Team Providers Care Mass Spectroscopist Name Role Phone Needs Pcp, Assignment Primary Care Provider [phone] Source Comments You are receiving this document as you are listed as the primary care provider,follow-up provider, or the patient has been referred to you for consultation.This is in compliance with the Medicare and[facility] Hospital[facility] EHR Incentive Program,which states Providers who transition their patient to another setting of careor provider of care or refers their patient to another provider of care shouldprovide summary care record for each transition of care or referral. [facility]erg[facility] Active Allergy Reactions Criticality Noted Date Comments Amoxicillin-Pot Clavulanate Hives,Rash High 11/06/2006 Per pt - ok with penicillin and amoxicillin Rash Morphine Sulfate-Nacl Other, see comments 11/06 Severe vomiting Sulfa Antibiotics Unknown 08/17/2020 Medications Medication Sig Dispensed Refills Start Date End Date Status amLODIPine (NORVASC) 5 MG tablet Take 5 mg by mouth. Acti ve B Complex Vitamins (VITAMIN-B COMPLEX) Take 1 Tablet by mouth. Active Multiple Vitamins-Minerals (ONCOVITE) Take 1 Tablet by mouth. Active Cholecalciferol 125 MCG (5000 UT) Take 5,000 Units by mouth. Active ALBUterol sulfate HFA 108 (90 Base) MCG/ACT inhaler Inhale 2 Puffs. Acti ve multivitamin, stress formula (VITAMIN B COMPLX WITH C) Take 1 Tablet by mouth. Active [place]-3 Fatty Acids (FISH OIL) 1200 MG capsule Take 1,200 mg by mouth. Active omeprazole (PRILOSEC) 20 MG capsule Take 20 mg by mouth. Acti ve psyllium powder (AKA METAMUCIL) 58.6 % packet Take 1 Packet by mouth. Active prednisoLONE acetate (PRED FORTE) 1 % eye drop suspension Place 1 Drop into right eye 4 times a day. Start immediately after surgery. 10 mL 2 10/11/2020 Active Additional Information Patient not taking.Reported on 01/13/2021 pravastatin (PRAVACHOL) 20 MG tablet Take 20 mg by mouth daily at bedtime. Active erythromycin 5 MG/GM (0.5%) eye ointment Place 0.5 Inches into left eye daily at bedtime. 3.5 g 1 02/08/2021 Active Active Problems Problem Noted Date Diagnosed Date Nuclear sclerotic cataract of both eyes 10/12/19 21 Overview: Added automatically from request for surgery [id number] Hx of LASIK 10/11/2020 Overview: Added automatically from request for surgery [id number] Urinary retention 10/10/2017 Unspecified cord compression 10/09/2017 Advance care planning 08/01/2016 Overview: Advance Care Planning 08/01/2016: ACP Review of Chart / Resources Provided: Reviewed chart for advance care plan. Dennys King Obie has an advance care plan on file which needs to be updated. Patient states presence of new/updated ACP document. Copy requested Added by Anna Walters Benign essential hypertension 08/01/2016 Cyst of left kidney 08/01/2016 Lipoma of torso 08/01/2016 Mild intermittent asthma without complication Hyperlipidemia 10/11/2002 Immunizations Name Administration Dates Next Due Influenza, Unspecified Formulation 03/23/1997, PPSV23 (Pneumovax) 05/29/2000 Pfizer Monovalent 12+ Purple Top 07/07/2020,06/07 Family History Medical History Relation Name Comments Amblyopia/Strabismus Negative Family History Blindness Negative Family History Cataract Negative Family History Glaucoma Negative Family History Macular Degeneration Negative Family History Retinal Detachment Negative Family History Social History Tobacco Use Types Packs/Day Years Used Date Smoking Tobacco: Never Assessed Sex and Gender Information Value Date Recorded Sex Assigned at Not on file Gender Identity Not on file Sexual Orientation Not on file Last Filed Vital Signs Vital Sign Reading Time Taken Comments Blood Pressure 138/85 12/16/2020 1:15 PM CDT Pulse 68 12/16/2020 1:15 PM CDT Temperature 36.7 ??C (98.1 ??F) 12/16/2020 1:00 PM CD T Respiratory Rate 16 12/16/2020 1:00 PM CDT Oxygen Saturation 97% 12/16/2020 1:15 PM CDT Inhaled Oxygen Concentration - - Weight - - Height - - Body Mass Index - - Plan of Treatment Health Maintenance Due Date Last Done Comments Colon Cancer Screening Plan Due 1950 Hep C Screening (Preventive Services) 1950 Adult Preventive Visit 1968 Cholesterol 04/11/2006 04/11/2001, 01/05, 10/04/2000, Additional history exists Zoster/Shingles (2 of 3) 07/02/2010 05/07/2010 Pneumococcal 65+ Yrs (3 - PPSV23 or PCV20) 07/02/2019 06/15/2016, 07/02/2014, 05/29/2000 COVID-19 Vaccine (3 - season) 2023 07/07/2020, 06/16/2020 Influenza (Season Ended) 2024 021, 02/10/2020, 02/10/2020, Additional history exists DTaP/Tdap/Td (2 - Tdap) 06/15/2026 06/15/2016 HepA Aged Out No longer eligi ble based on patient's age to complete this topic HepB Aged Out No longer eligi ble based on patient's age to complete this topic Hib Aged Out No longer eligi ble based on patient's age to complete this topic IPV (Polio) Aged Out No longer eligi ble based on patient's age to complete this topic MCV4 Aged Out No longer eligi ble based on patient's age to complete this topic Medical Devices Implanted Type Area Clearing Hand Device Identifier Shelf Expiration Date Model / Serial / Lot Lens Iol Tecnis Zcb00 24.5 - [id number] Implanted:Qty: 1 on 11/25/2020 by [facility]idd [facility] at [facility] Right: EYE [employer] 04/17/2024 ZCB00.245 / [id number] / NA Lens Iol Tecnis Zcb00 24.5 - [id number] Implanted:Qty: 1 on 12/16/2020 by Sarah Kidd MD at [facility] Left: EYE [employer] 08/24/2024 ZCB00.2 45 / [id number] / NA Procedures Procedure Name Priority Date/Time Associated Diagnosis Comments LIPID PANEL & DIRECT LDL (IF NEEDED) Routine 04/11/2001 3:58 PM FOAM RUBBER MOLDER from Last 3 Months or Most Recently Relevant to Health Maintenance Results * (ABNORMAL) Lipid Panel and Direct LDL(If Needed) (04/11/2001 3:58 PM FOAM RUBBER MOLDER) Hours Fasting 11.5 8.0 - 24.0 Hours HP CONVERSION Cholesterol/HDL Ratio Screen 5.1 No normal range HP CONVERSION Cholesterol 220(HH) 125 - 199 mg/dL HP CONVERSION HDL Cholesterol 43 40 - 60 mg/dL HP CONVERSION Triglycerides 187 0 - 199 mg/dL HP CONVERSION LDL Calculated 140(HH) 66 - 129 mg/dL HP CONVERSION Comment:Fasting status adequ ate. 04/11/2001 3:58 PM FOAM RUBBER MOLDER Conner Hdz MD LAB_1 HP CONVERSION from Last 3 Months or Most Recently Relevant to Health Maintenance Care Teams Mass Spectroscopist Relationship Specialty Start Date End Date Needs Pcp, [place] [address] PCP - General 10/12/20
--- OUTSIDE RECORDS SUMMARY | 2023-09-11 07:05 | XMS_ITS | Encounter Summary ---
Author Name Unknown Organization [place] Address [address] [place] [address] Care Team Providers Care Credit Front Office Developer Name Role Phone Maria Luisa Ross MD Primary Care P rovider Maria Luisa Ross MD Unavailable Maria Luisa Ross MD Unavailable Karthikeyan Christian MD Primary Care Provider Elenita vailable Fabien Trevino MD Unavailable Eulalio Rondon MD Primary Care Provider Fabien Trevino MD Unavailable [phone] Encounter Details Date Type Department Care Team (Late st Contact Info) Description 08/20/2017 Records - [facility] HE CONVERSION Scan, Non-Provider Social History Tobacco [...] on filedocumented in this encounter Care Teams Credit Front Office Developer Relationship Specialty Start Date End Date Maria Luisa Ross MD [address] [place] [address] PCP - General Internal Medicine 08/25/16 11/11/18 Maria Luisa Ross MD [address] [place] [address] PCP - Assigned PCP 10/14/17 07/09/18 Karthikeyan Christian MD [address] [place] [address] PCP - General Family Practice 11/12/18 01/18/20 Eulalio Rondon MD [facility] [address] [place] [address] PCP - General Emergency Medicine 01/19/20 Maria Luisa Ross MD [address] [place] [address] Assigned PCP 10/14/17 10/09/20 Fabien Trevino MD [address] [place] [phone] Urology 05/19/19 Fabien Trevino MD [address] [place] [phone] Assigned Surgical Provider 02/27/20 12/25/20 documented as of this encounter
--- OUTSIDE RECORDS SUMMARY | 2023-09-11 07:05 | XMS_ITS | Encounter Summary ---
Author Name Unknown Organization [place] Address [address] [facility] [place] [address] Care Team Providers Care Career Technical Counselor Name Role Phone Maria Luisa Ross MD Primary Care P rovider Maria Luisa Ross MD Unavailable Maria Luisa Ross MD Unavailable Karthikeyan Christian MD Primary Care Provider Elenita vailable Fabien Trevino MD Unavailable Eulalio Rondon MD Primary Care Provider Fabien Trevino MD Unavailable [phone] Encounter Details Date Type Department Care Team (Late st Contact Info) Description 11/19/2017 [facility] - [facility] CONVERSION Scan, Non-Provider Social History [...] on filedocumented in this encounter Care Teams Career Technical Counselor Relationship Specialty Start Date End Date Maria Luisa Ross MD [address] [place] [address] PCP - General Internal Medicine 08/25/16 11/11/18 Maria Luisa Ross MD [address] [place] [address] PCP - Assigned PCP 10/14/17 07/09/18 Karthikeyan Christian MD [address] [place] [address] PCP - General Family Practice 11/12/18 01/18/20 Eulalio Rondon MD [facility] [address] [place] [address] PCP - General Emergency Medicine 01/19/20 Maria Luisa Ross MD [address] [place] [address] Assigned PCP 10/14/17 10/09/20 Fabien Trevino MD [address] [place] [phone] Urology 05/19/19 Fabien Trevino MD [address] [place] [phone] Assigned Surgical Provider 02/27/20 12/25/20 documented as of this encounter
--- NOTE | 2023-09-11 07:15 | MR_ITS ---
Patient: ANJU BAIG Facility:?[facility] R[facility] Patient ID:?[id number] Site Patient ID:?[id number]. Site :?[id number] Study:?MRI-Spine Lumbar W/O-09/11/2023 8:06:59 AM Ordering Physician:MG ATWOOD Final Report: Indication: Low back pain Technique: Multiplanar, multisequence, MRI of the lumbar spine, obtained without contrast. Comparison: MRI lumbar spine 02/06/2023 Findings: The normal lumbar lordosis is preserved. No significant spondylolisthesis. Vertebral body heights are maintained. No acute osseous abnormality. Minor Modic type 1 opposing endplate changes anteriorly at T12-L1. Degenerative Schmorl`s nodes most notably at the L4 superior and inferior endplates. The conus medullaris terminates at L1. No suspicious findings identified in the paraspinal soft tissues. Incidental bilateral renal cysts. Unremarkable included SI joints. T12-L1: Shallow posterior disc bulge. No significant neural foraminal or spinal canal stenosis. L1-L2: No significant neural foraminal or spinal canal stenosis. L2-L3: New left subarticular to foraminal cranial disc extrusion, impinging the exiting left L2 nerve root and medially displacing the descending left L3 nerve roots. Mild facet arthropathy. No right neural foraminal or central spinal canal stenosis. L3-L4: Mild diffuse disc bulge, mild facet arthropathy. No significant neural foraminal or spinal canal stenosis. L4-L5: Mild diffuse disc bulge, right asymmetric facet arthropathy. No left, mild right neural foraminal narrowing. No spinal canal stenosis. L5-S1: No significant neural foraminal or spinal canal stenosis. Impression: 1. At L2-L3, new left subarticular to foraminal cranial disc extrusion, impinging the exiting left L2 nerve root, and medially displacing the descending left L3 nerve root. 2. At L4-L5, stable mild right neural foraminal narrowing. 3. No other significant interval change relative to 02/06/2023. Dictated by Flaquita Luna MD @ 09/11/2023 2:04:36 PM Signed by:?Flaquita Luna MD @09/11/2023 2:04:36 PM (Electronic Signature)
== END 2023-09-11 07:02 | disposition home or self-care (01) ==
LOC: MRI 07:01
PROVIDERS: PCP Internal Medicine; Visit Provider Physical Medicine & Rehabilitation Pain Medicine
DX: M54.50 Low back pain, unspecified (principal); M51.26 Other intervertebral disc displacement, lumbar region; M47.817 Spondylosis without myelopathy or radiculopathy, lumbosacral region; M54.16 Radiculopathy, lumbar region
CPT/HCPCS: 72148

== ENCOUNTER 2023-11-27 09:30 | Outpatient (RCR) | payer MEDICARE, SELFPAY | END 2024-02-12 10:27 | disposition home or self-care (01) | PROVIDERS: PCP Internal Medicine; Visit Provider Physical Medicine & Rehabilitation Pain Medicine | DX: M54.50 Low back pain, unspecified (principal); M54.16 Radiculopathy, lumbar region; M47.817 Spondylosis without myelopathy or radiculopathy, lumbosacral region; R53.1 Weakness; Z51.89 Encounter for other specified aftercare | CPT/HCPCS: 97032; 97110; 97162; 97535 ==

== ENCOUNTER 2024-01-31 12:08 | Emergency (ER) | payer MEDICARE, SELFPAY ==
[2024-01-31 12:13] VITALS: BP 123/76; PULSE 86; RESP 18; TEMP 36.6; O2SAT 97; BMI 30.8
--- OUTSIDE RECORDS SUMMARY | 2024-01-31 12:31 | XMS_ITS | Encounter Summary ---
Author Name [facility] [place] Address [address] [place] [address] Care Team Providers Care Congressional Representative Name Role Phone JOSE LOMBARDI Primary Care Provider [facility] Insurance Providers: All historical and current Section Date Range: From patient's date of to the date document was created. This section includes the names of all active insurance providers for the patient. Insurance Provider Type of Coverage Plan Name Start of Policy Coverage End of Policy Coverage Group Number Member ID Insurance Provider's Telephone Number Policy Rodriguez's Name Patient's Relationship to Policy Rodriguez [facility] ([facility]) MEDICARE [facility] May 07, 2023 [id number] [phone] JOVANNIANJU PATIENT [facility] [facility] MEDICARE ADVANTAGE [facility] May 07, 2018 [id number] [phone] ANJU BAIG PATIENT [employer] [facility] (R) MEDICARE ADVANTAGE [facility] May 07, 2021 [id number] [phone] JOVANNIANJU PATIENT [employer] [facility] MEDICARE ADVANTAGE [facility] May 07, 2019 [id number] ANJU BAIG PATIENT [employer] [facility] (WNR) MEDICARE [facility]) May 07, 2019 [id number] [phone] JOVANNI ANJU PATIENT Selected Encounter This section includes the information on record at [place] for the Encounter. Date/Time Encounter Type Encounter Description Reason Provider Source Feb 22, 2023 07:45 AM OFF/OP CNSLTJ NEW/EST MOD 40 ORTHO/JOINT SURG ICD-10-CM S62.605A Fracture of unsp phalanx of left ring finger, [place] Humphrey [facility] Encounter Template Text not used by [place] Assessments - Encounter Diagnoses This section includes the primary and secondary diagnoses documented for the Encounter. Date/Time Primary/Secondary Diagnosis Diagnosis Name Provider Source Feb 22, 2023 09:09 AM PRIMARY Fracture of unsp phalanx of left ring finger, [place] Humphrey [facility] Plan of Treatment: Future Appointments (+ 6 months) and Future Tests (+/- 45 days) The Plan of Treatment section includes future care activities for the patient from all [place] [facility]. This section includes future appointments and future orders which are active, pending or scheduled. Future Appointments This section includes appointments that were scheduled to occur 6 months from the date of the Encounter, up to a maximum of 20 appointments. The data comes from all [place] treatment facilities. Appointment Date/Time Appointment Type Appointme nt Facility Name Apr 11, 2023 10:00 AM AMBULATORY - MEDICINE [facility] Apr 19, 2023 07:30 AM AMBULATORY - SURGERY [facility] Apr 19, 2023 08:20 AM AMBULATORY - SURGERY [facility] May 09, 2023 01:00 PM AMBULATORY - SURGERY [facility] May 17, 2023 11:00 AM AMBULATORY - NONE [facility] May 29, 2023 01:30 PM AMBULATORY - NONE [facility] Jun 13, 2023 08:30 AM AMBULATORY - MEDICINE [facility] Jul 04, 2023 10:30 [facility] Jul 13, 2023 10:00 AM AMBULATORY - NONE [facility] Social History: Smoking Status (Most current) and Tobacco Use (All prior to encounter date) This section includes the most current, and the historical, smoking and tobacco- related health factors from the [place] facility where the Encounter took place. Current Smoking Status This section includes the most current smoking, or tobacco-related health factor, from the [place] facility where the Encounter took place. Date/Time Current Smoking Status Comment Facil ity Nov 14, 2006 09:22 AM FORMER TOBACCO USER 7Y OR GREATE R [facility] Advance Directives: All historical and current Section Date Range: From patient's date of to the date document was created. This section includes ALL of a patient's completed or amended [place] Advance and Rescinded Directives. The entries below indicate that a directive exists for the patient, but an actual copy is not included with this document. The data comes from all [place] facilities. Date Advance Directives Provider Source September 22, 2021 ADVANCE DIRECTIVE RICHARD PLASCENCIA [facility] September 22, 2021 ADVANCE DIRECTIVE DISCUSSION ROBERTO PLASCENCIA [facility] Sep 01, 2016 ADVANCE DIRECTIVE DISCUSSION ROBERTO PLASCENCIA [facility] Sep 01, 2016 ADVANCE DIRECTIVE RICHARD PLASCENCIA [facility] Radiology Reports: +/- 30 days of the encounter Radiology Reports For cases when an order for radiology services may have been completed prior to the date of the Encounter, the report list includes the Radiology Reports that were completed up to 30 days before dateof the Encounter. For cases when an order for radiology services may have been completed after the date of the Encounter, the report list also includes the Radiology Reports that were completed up to30 days after date of the Encounter. The data comes from all [place] treatment facilities. Date/Time Radiology Report Provider Source Feb 22, 2023 07:45 AM FINGER(S) LEFT 2 V IEWS OR MORE: ANJU BAIG [id number] -1950 M Exm Date: FEB 22, 2023@07:45 Req Phys: [place] BRADY Pat Loc: [facility] ORTHO HOSPITALITY TEAM MEMBER ZEBRA CONSULT AM Img Loc: MAIN X-RAY Service: Unknown (Case [id number] COMPLETE) FINGER(S) LEFT 2 VIEWS OR MORE (RAD Detailed) CPT:81566 Proc Modifiers : LEFT Reason for Study: Left ring finger fx Clinical History: IS NOT under investigation for COVID-19 or is COVID-19 negative Left ring finger fx Responsible provider name and phone number to notify for critical findings if other than user placing the order and pager listed below: User placing orders pager: [phone] ortho [phone] LAST CREATININE 0.9 (06/05/22) Report Status: Verified Date Reported: FEB 22, 2023 Date Verified: FEB 22, 2023 Photogeologist E-Sig:/ES/ALISHA OSULLIVAN MD, FACR, CCD Report: EXAMINATION: FINGER(S) LEFT 2 VIEWS OR MORE 02/22/2023 7:45 AM INDICATION: Left ring finger fx COMPARISON: Left ring finger radiographs February 15, 2023 from an outside institution. FINDINGS: No significant change is appreciated associated with the displaced fracture involving the terminal tuft distal phalanx ring finger. Impression: No significant change. Primary Interpreting Staff: ALISHA OSULLIVAN MD, FACR, STAFF RADIOLOGIST (Photogeologist) /BSF ALISHA OSULLIVAN [facility] Feb 15, 2023 08:43 AM NON VA FINGER(S) L EFT: ANJU BAIG [id number] -[id number] M Exm Date: FEB 15, 2023@08:43 Req Phys: JOSE LOMBARDI Pat Loc: [facility] GENERAL AM (Req'g Loc Img Loc: OUTSOURCE MAIN X-RAY Service: Unknown (Case [id number] COMPLETE) NON VA FINGER(S) LEFT (RAD Detailed) CPT:06557 Reason for Study: outside study Clinical History: outside study Report Status: Electronically Filed Date Reported: FEB 22, 2023 Report: This is an outside Imaging study and/or report imported for continuity of patient care. This Imaging study and/or report was not reviewed or verified by a [place] Radiologist. Impression: This is an outside Imaging study and/or report imported for continuity of patient care. This Imaging study and/or report was not reviewed or verified by a [place] Radiologist. Primary Diagnostic Code: VERIFIED BY: / *ELECTRONICALLY FILED* [facility] Encounter Notes: All associated encounter notes This section contains the clinical notes associated to the Encounter. Date/Time Encounter Note(s) Provider Source Feb 22, 2023 08:19 AM ORTHOPEDIC SURGERY CONSULT: LOCAL TITLE: ORTHOPEDIC CONSULT STANDARD TITLE: ORTHOPEDIC SURGERY CONSULT DATE OF NOTE: FEB 22, 2023@08:19 ENTRY DATE: FEB 22, 2023@08:19:41 AUTHOR: BR[place] BRADY EXP COSIGNER: URGENCY: STATUS: COMPLETED Chief Complaint(s): Left rignt finger crush injury with tuft fx. HPI: Patient is a very pleasant [id number] 72-year-old male, who sustained a crush injury to his left ring finger on February 13, 2023, 9 days ago while using a wood splitter. Patient got his right ring finger caught between the metal plate and a log where it was crushed laterally. The nail popped off at that time he removed it cleaned the wound with soap and water put bacitracin on it with a dressing on it and went back to work. The next day he followed up in outside clinic obtained x-rays which showed a left ring finger tuft fracture. Patient denies any pain if he is not moving his finger, he states the swelling has improved greatly, it is painful if bumped. Past medical history/Active Problems: Active Problems: Active problems - Computerized Problem List is the source for the followin. Pain in left knee (SNOMED CT [id number]) 2. Hyperlipidemia (SNOMED CT 13388421) 3. Screening for Malignant Neoplasms of colon - colonoscopy 09/09--> hyperplastic polyp 4. Osteoarthritis, Knee 5. Dyslipidemia 6. Allergic rhinitis 7. Allergic asthma 8. Health maintenance alteration 9. Acute back pain with sciatica 10. Low back pain 11. Paresthesia of foot (SNOMED CT 100340774) 12. Schmorl's nodes of lumbar region 13. Plantar fasciitis of right foot 14. Tibialis posterior tendinitis 15. Enthesopathy of foot region 16. cervical laminoplasty 17. Gastro-esophageal reflux disease with esophagitis 18. Essential hypertension Allergies: INFLUENZA (September 20, 2004) MORPHINE (Nov 14, 2006) SULFA DRUGS (Nov 14, 2006) PENICILLIN (Nov 20, 2006) Active Outpatient Medications (including Supplies): Active Outpatient Medications Status 1) AMLODIPINE BESYLATE 10MG TAB TAKE ONE-HALF TABLET BY ACTIVE MOUTH EVERY DAY FOR BLOOD PRESSURE 2) CARBOXYMETHYLCELLULOSE NA 0.5%(PF)OP FARIBA INSTILL 1 ACTIVE DROP IN BOTH EYES FOUR TIMES A DAY 3) IBUPROFEN 800MG TAB TAKE ONE TABLET BY MOUTH THREE ACTIVE TIMES A DAY NEEDED FOR PAIN -TAKE WITH FOOD 4) KETOTIFEN 0.025% OPH SOLN INSTILL 1 DROP IN BOTH EYES ACTIVE TWICE A DAY 5) OMEPRAZOLE 20MG EC CAP TAKE ONE CAPSULE BY MOUTH ACTIVE EVERY DAY ON AN EMPTY STOMACH, AT LEAST 30 MINUTES PRIOR TO A MEAL 6) PRAVASTATIN NA 40MG TAB TAKE ONE TABLET BY MOUTH AT ACTIVE BEDTIME FOR CHOLESTEROL - REPLACES ATORVASTATIN PRESCRIPTION Active Non-VA Medications Status 1) Non-VA BUDESONIDE 32MCG 120D NASAL INHL 2 PUFFS EACH ACTIVE NOSTRIL NEEDED 7 Total Medications Social Habits (describe): Employment status/Education - Retired. Building [employer] Living situation - Alone. Son and Daughter live near by Alcohol use - 2/month Recreational drug use - CBD/MJ for pain Current tobacco use - None. Diet - No special diet Activity level - Community ambulation. PHYSICAL EXAM: General Appearance: Well Developed, Well Nourished, NAD, BMi - 33.41 Vital Signs:BP: 130/81 (06/05/2022 09:37) P: 73 (06/05/2022 08:26) R: 16 (06/05/2022 08:26) T: 97 F [36.1 C] (06/05/2022 08:26) WGT: 197.3 lb [89.49 kg] (06/05/2022 08:26) Musculoskeletal: On exam patient does have bony changes across the small joints of his fingers, interosseous muscle strength intact, pincer strength intact, patient has good system controller strength. The left ring finger is swollen at the distal phalanx the nail has been removed removed partially there is no evidence of infection no drainage no redness. Patient has full range of motion at his left ring PIP with the PIP blocked only mild flexion at the DIP. Imaging: FEB 22, 2023 Photogeologist E-Sig:/ES/ALISHA OSULLIVAN MD, FACR, CCD Report: EXAMINATION: FINGER(S) LEFT 2 VIEWS OR MORE 02/22/2023 7:45 AM INDICATION: Left ring finger fx COMPARISON: Left ring finger radiographs February 15, 2023 from an outside institution. FINDINGS: No significant change is appreciated associated with the displaced fracture involving the terminal tuft distal phalanx ring finger. Patient is a very pleasant right hand dominant male Impression: No significant change. Diagnosis/Treatment Plan: Diagnosis: Left ring finger tuft fracture. Comments: Patient has been taking good care of his wound he was treated with antibiotics, and there is no sign of infection. At this point we will have him meet with her occupational hand therapist they will construct him a better splint and work on flexion exercises. Plan: 1. Consult occupational hand therapy for splinting and working on range of motion when appropriate. 2. Follow-up in Ortho PRN if symptoms worsen or fail to improve. Any sign of infection. /jody/ BR[place] BRADY CNP LEAD CASTER HELPER,BRUSHER Signed: 02/22/2023 09:09 BR[place] BRADY [facility]
--- OUTSIDE RECORDS SUMMARY | 2024-01-31 12:31 | XMS_ITS | Encounter Summary ---
Author Name [facility] [place] [facility] [place] Address [address] [place] [address] Care Team Providers Care Hoist Worker Name Role Phone JOSE LOMBARDI Primary Care Provider [facility] Insurance Providers: All historical and current Section Date Range: From patient's date of to the date document was created. This section includes the names of all active insurance providers for the patient. Insurance Provider Type of Coverage Plan Name Start of Policy Coverage End of Policy Coverage Group Number Member ID Insurance Provider's Telephone Number Policy Rodriguez's Name Patient's Relationship to Policy Rodriguez [facility] ([facility]) MEDICARE [facility] ([facility]) May 07, 2023 [id number] [phone] JOVANNI ANJU PATIENT [facility] ([facility]) MEDICARE [facility] ([facility]) May 07, 2018 [id number] [phone] JOVANNIANJU PATIENT [facility] ([facility]) MEDICARE [facility] ([facility]) May 07, 2021 [id number] JOVANNIANJU PATIENT [facility] ([facility]) MEDICARE [facility] ([facility]) May 07, 2019 [id number] JOVANNIANJU PATIENT [facility] ([facility]) MEDICARE [facility] ([facility]) May 07, 2019 [id number] ANJU BAIG PATIENT Selected Encounter This section includes the information on record at [place] for the Encounter. Date/Time Encounter Type Encounter Description Reason Provider Source Apr 11, 2023 10:00 AM OFF/OP EST MAY X REQ PHY/QHP PRIMARY CARE/MEDICINE ICD-10-CM Z71.9 Counseling, unspecified LIA RIZO Encounter Template Text not used by [place] Assessments - Encounter Diagnoses This section includes the primary and secondary diagnoses documented for the Encounter. Date/Time Primary/Secondary Diagnosis Diagnosis Name Provider Source Apr 13, 2023 03:39 PM PRIMARY Counseling, unspecified [facility] Plan of Treatment: Future Appointments (+ 6 months) and Future Tests (+/- 45 days) The Plan of Treatment section includes future care activities for the patient from all [place] [facility] This section includes future appointments and future orders which are active, pending or scheduled. Future Appointments This section includes appointments that were scheduled to occur 6 months from the date of the Encounter, up to a maximum of 20 appointments. The data comes from all [place] treatment facilities. Appointment Date/Time Appointment Type Appointme nt Facility Name Apr 19, 2023 07:30 AM AMBULATORY - SURGERY [facility] Apr 19, 2023 08:20 AM AMBULATORY - SURGERY [facility] May 09, 2023 01:00 PM AMBULATORY - SURGERY [facility] May 17, 2023 11:00 AM AMBULATORY - NONE [facility] May 29, 2023 01:30 PM AMBULATORY - NONE [facility] Jun 13, 2023 08:30 AM [facility]UL[facility] Jul 04, 2023 10:30 AM AMBULATORY - NONE [facility] Jul 13, 2023 10:00 AM AMBULATORY - NONE [facility] Social History: Smoking Status (Most current) and Tobacco Use (All prior to encounter date) This section includes the most current, and the historical, smoking and tobacco- related health factors from the [place] facility where the Encounter took place. Current Smoking Status This section includes the most current smoking, or tobacco-related health factor, from the [place] facility where the Encounter took place. Date/Time Current Smoking Status Comment Facil ity Jun 05, 2022 08:30 AM [place]BAC[place] FORMER USER [facility] Tobacco Use History This section includes a history of the smoking, or tobacco-related health factors, that were collected on or before the date of the Encounter. The data comes from the [place] facility where the Encounter took place. Date/Time Smoking Status/Tobacco Use Comment F acility Jun 05, 2022 08:30 AM [place]-TOBACCO QUIT 15 YRS OR MORE [facility] Jun 08, 2021 08:30 AM VA-TOBACCO FORMER USER [place] [facility] Jun 08, 2021 08:30 AM VA-TOBACCO QUIT 15 YRS OR MORE [facility] Jun 11, 2020 10:00 AM VA-TOBACCO NEVER USED [facility] Jun 05, 2019 10:23 AM VA-TOBACCO FORMER USER [place] Jun 05, 2019 10:23 AM VA-TOBACCO QUIT 15 YRS OR MORE [facility] Jun 26, 2018 09:55 AM VA-TOBACCO FORMER USER [place] [facility] Jun 26, 2018 09:55 AM VA-TOBACCO QUIT 15 YRS OR MORE [facility] May 24, 2017 09:03 AM FORMER TOBACCO USER 7Y OR GREATE R [facility] Apr 19, 2016 04:36 AM FORMER TOBACCO USER 7Y OR GREATE R [facility] Apr 23, 2015 05:01 AM FORMER TOBACCO USER 7Y OR GREATE R [facility] Jun 15, 2014 10:00 AM FORMER TOBACCO USER 7Y OR GREATE R [facility] Advance Directives: All historical and current Section Date Range: From patient's date of to the date document was created. This section includes ALL of a patient's completed or amended [place] Advance and Rescinded Directives. The entries below indicate that a directive exists for the patient, but an actual copy is not included with this document. The data comes from all [place] facilities. Date Advance Directives Provider Source September 22, 2021 ADVANCE DIRECTIVE RICHARD [facility] September 22, 2021 ADVANCE DIRECTIVE DISCUSSION ROBERTO [facility] Sep 01, 2016 ADVANCE DIRECTIVE DISCUSSION ROBERTO [facility]ENC[facility] Sep 01, 2016 ADVANCE DIRECTIVE RICHARD PLASCENCIA [facility] Encounter Notes: All associated encounter notes This section contains the clinical notes associated to the Encounter. Date/Time Encounter Note(s) Provider Source Apr 11, 2023 04:47 PM NURSING OUTPATIENT NOTE: LOCAL TITLE: [facility] MEDICINE CLINIC NURSING RN NOTE STANDARD TITLE: NURSING OUTPATIENT NOTE DATE OF NOTE: APR 11, 2023@16:47 ENTRY DATE: APR 11, 2023@16:47:22 AUTHOR: LIA RIZO COSIGNER: URGENCY: STATUS: COMPLETED TYPE OF VISIT: Nurse Clinic REASON FOR VISIT: came to clinic today for scheduled RN visit, concerns with toenail issues and needing possible Podiatry follow up. Pt reports he was seen at local urgent care for concerns with an ingrown toenail on right great toe. Pt stated he is currently taking Cephalexin as prescribed by UC provider, but is needing to follow up with Podiatry. Pt's toe is swollen with redness noted, no drainage or pus. Pt stated he is cleaning toe daily, keeping area clean and dry. Pt reports pain with pressure to the toe. MD alerted of above, will place Podiatry consult and hold for MD review/signature. Pt stated he has an appt at the [facility] on 04/19 and would like to coordinate an appt for the same day if possible. Pt is aware his request will be forwarded to Podiatry however the appt day/time will depend on availability, etc. Pt verbalized agreement and understanding. [place] is aware he should contact [facility] if any concerns arise prior to appt, or UC/ER care for any acute changes in symptoms or s/s of infection. Telephone Messenger will remain available to assist as needed. /jody/ LIA RIZO RN REGISTERED NURSE Signed: 04/13/2023 15:39 LIA RIZO [facility]
--- OUTSIDE RECORDS SUMMARY | 2024-01-31 12:31 | XMS_ITS | Encounter Summary ---
Author Name [facility] [place] Address [address] [place] [address] Care Team Providers Care Shoer Name Role Phone JOSE LOMBARDI [facility] Insurance Providers: All historical and current Section Date Range: From patient's date of to the date document was created. This section includes the names of all active insurance providers for the patient. Insurance Provider Type of Coverage Plan Name Start of Policy Coverage End of Policy Coverage Group Number Member ID Insurance Provider's Telephone Number Policy Rodriguez's Name Patient's Relationship to Policy Rodriguez BC[facility] (WNR) MEDICARE [facility] ([facility]) May 07, 2023 [id number] [phone] JOVANNI ANJU PATIENT [facility] [employer] ([facility]) MEDICARE [facility] ([facility]) May 07, 2018 [id number] [phone] ANJU BAIG PATIENT [facility] [facility] ([facility]) MEDICARE [facility]VANTAGE [facility] ([facility]) May 07, 2021 [id number] JOVANNIANJU PATIENT [facility] [facility] ([facility]) MEDICARE ADVANTAGE [facility] ([facility]) May 07, 2019 [id number] ANJU BAIG PATIENT [facility] ([facility]) MEDICARE [facility] ([facility]) May 07, 2019 [id number] [phone] ANJU BAIG PATIENT Selected Encounter This section includes the information on record at [place] for the Encounter. Date/Time Encounter Type Encounter Description Reason Provider Source Apr 19, 2023 08:20 AM OFFICE O/P EST MOD 30-39 MIN OPHTHALMOLOGY ICD-10-CM H04.123 Dry eye syndrome of bilateral lacrimal glands JOSE MARTIN BAXTER [place] Encounter Template Text not used by [place] Assessments - Encounter Diagnoses This section includes the primary and secondary diagnoses documented for the Encounter. Date/Time Primary/Secondary Diagnosis Diagnosis Name Provider Source Apr 19, 2023 09:16 AM PRIMARY Dry eye syndrome of bilateral lacrimal glands BAXTERDEEPTHI [facility] Apr 19, 2023 09:16 AM SECONDARY Myopia, bilateral DEEPTHI BAXTER [facility] Apr 19, 2023 09:16 AM SECONDARY Other chronic allergic conjunctivitis DEEPTHI BAXTER [facility] Apr 19, 2023 09:16 AM SECONDARY Presence of intraocular lens DEEPTHI BAXTER [facility] Apr 19, 2023 09:16 AM SECONDARY Regular astigmatism, bilateral DEEPTHI BAXTER [facility] Plan of Treatment: Future Appointments (+ 6 months) and Future Tests (+/- 45 days) The Plan of Treatment section includes future care activities for the patient from all [place] [facility]. This section includes future appointments and future orders which are active, pending or scheduled. Future Appointments This section includes appointments that were scheduled to occur 6 months from the date of the Encounter, up to a maximum of 20 appointments. The data comes from all [place] treatment facilities. Appointment Date/Time Appointment Type Appointme nt Facility Name May 09, 2023 01:00 PM AMBULATORY - SURGERY [facility] May 17, 2023 11:00 AM AMBULATORY - NONE [facility] May 29, 2023 01:30 PM AMBULATORY - NONE [facility] Jun 13, 2023 08:30 AM AMBULATORY - MEDICINE [facility] Jul 04, 2023 10:30 AM AMBULATORY - NONE [facility] Jul 13, 2023 10:00 AM AMBULATORY - NONE [facility] Oct 16, 2023 02:00 PM AMBULATORY - SURGERY [facility] Social History: Smoking Status (Most current) and Tobacco Use (All prior to encounter date) This section includes the most current, and the historical, smoking and tobacco- related health factors from the [place] facility where the Encounter took place. Current Smoking Status This section includes the most current smoking, or tobacco-related health factor, from the [place] facility where the Encounter took place. Date/Time Current Smoking Status Comment Facil ity Nov 14, 2006 09:22 AM FORMER TOBACCO USER 7Y OR MENA R [facility] Advance Directives: All historical and current Section Date Range: From patient's date of to the date document was created. This section includes ALL of a patient's completed or amended [place] Advance and Rescinded Directives. The entries below indicate that a directive exists for the patient, but an actual copy is not included with this document. The data comes from all [place] facilities. Date Advance Directives Provider Source September 22, 2021 ADVANCE DIRECTIVE RICHARD PLASCENCIA [facility] September 22, 2021 ADVANCE DIRECTIVE DISCUSSION ROBERTO PLASCENCIA [facility] Sep 01, 2016 ADVANCE DIRECTIVE DISCUSSION ROBERTO PLASCENCIA [facility] Sep 01, 2016 ADVANCE DIRECTIVE RICHARD PLASCENCIA [facility] Encounter Notes: All associated encounter notes This section contains the clinical notes associated to the Encounter. Date/Time Encounter Note(s) Provider Source Apr 19, 2023 09:00 AM OPHTHALMOLOGY ATTE ANDRES NOTE: LOCAL TITLE: OPHTHALMOLOGY CLINIC NOTE STANDARD TITLE: OPHTHALMOLOGY ATTENDING NOTE DATE OF NOTE: APR 19, 2023@09:00 ENTRY DATE: APR 19, 2023@09:00:52 AUTHOR: NELLI BAXETR EXP COSIGNER: URGENCY: STATUS: COMPLETED HPI: 72 y/o male rtc for yearly follow-up of Dry eyes and pseudophakia --Patient states some vision changes. Denies floaters/flashes OU. No pain/discomfort OU, but still having irritation with OS. *needs refill for all drops Drops Using: ATs BID OU ketotifen TID OU Eye History: IOL OU hx PVD OU hx CAROL OU hx SAC Active problems - Computerized Problem List is the source for the followin. Pain in left knee (SNOMED CT 193090214224766) 2. Hyperlipidemia (SNOMED CT 53708009) 3. Screening for Malignant Neoplasms of colon - colonoscopy 09/09--> hyperplastic polyp 4. Osteoarthritis, Knee 5. Dyslipidemia 6. Allergic rhinitis 7. Allergic asthma 8. Health maintenance alteration 9. Acute back pain with sciatica 10. Low back pain 11. Paresthesia of foot (SNOMED CT 107560481) 12. Schmorl's nodes of lumbar region 13. Plantar fasciitis of right foot 14. Tibialis posterior tendinitis 15. Enthesopathy of foot region 16. cervical laminoplasty 17. Gastro-esophageal reflux disease with esophagitis 18. Essential hypertension Surgeries: JUL 02, 2017 Proc: Excision of right upper quadrant and left upper quadrant lipomas Full Exam Allergies: INFLUENZA (September 20, 2004) MORPHINE (Nov 14, 2006) SULFA DRUGS (Nov 14, 2006) PENICILLIN (Nov 20, 2006) No new Allergies. Past Medical History: Hypertension High cholesterol Social History: Alcohol use - yes Tobacco use - no Last refraction: 07/14/21 Vision: OD:CC(with glasses) OD: Vision: OS:CC(with glasses) 0S: 20/25-2/+2 blurry Current glasses: -1.00 +0.75 x135 -1.00 +1.50 x145 +2.50BF Refraction: Manifest: YES Automated: NO OD: -1.00 +0.75 x135 (NC) OS: -0.50 +1.25 x173 Add: +2.50 Near vision: OU Comment: *pt prefers new rx in OS compared to his glasses rx. Confrontational Blue: Full to finger counting: Right: Yes Left: Yes Pupils: Right: Round Left: Round Size: Right: 3 Left: 3 React to light: Right: Yes Left: Yes Afferent pupil defect: Right:No Grade: Left: No Grade: Intra-ocular pressure (IOP): OD: 9 OS: 10 iCare Dilation: mydriacyl 1% and neosynephrine OU @ 8:33 . I have reviewed and agree with the technicians examination General Eye Exam (bilateral unless noted otherwise): The patient is alert and oriented x 3 External: Adnexa/Orbit- wnl OU Eyelids/Lashes- dermatochalasis SLE: Conjunctiva- clear Sclera- white and quiet Cornea- 1+PEE AC- Deep and clear Iris- wnl and round Lens-PC IOL with peripheral PCO Vitreous- PVD Fundus: ON- C/D- OD 0.1 ; OS 0.1 Vessels- normal caliber, no heme Macula- flat Periphery- flat without significant pathology Assessment and Plan: # CAROL-continue PF art tears QID and prn. Renewed Rx. Monitor. # Allergic conjunctivitis seasonally by hx. Renew ketitofen. Monitor. #Bilateral PC IOLs-stable. Observe. # Benign skin tags U and L L OU. Remove or observe. He prefers the latter. -Monitor. # myopic astig -New glasses prescription above was given (single vision, bifocal, or trifocal with choice of lined or progressive lenses; Patient eligible for glasses with special lenses (Photochromic or tinted, and/or antireflective coating) RTC 1y or sooner as needed VTD/MR /es/ NELLI BAXTER MD OPHTHALMOLOGY STAFF SURGEON Signed: 04/19/2023 09:16 NELLI BAXTER [facility] Apr 19, 2023 08:11 AM OPHTHALMOLOGY TECH [facility] NOTE: LOCAL TITLE: SUPERVISOR EDUCATION NOTE STANDARD TITLE: SUPERVISOR EDUCATION NOTE DATE OF NOTE: APR 19, 2023@08:11 ENTRY DATE: APR 19, 2023@08:11:34 AUTHOR: ZEE LATIF EXP COSIGNER: URGENCY: STATUS: COMPLETED Eye Start Exam Patient: ANJU BAIG Sex: MALE SSN: [id number] Birthdate: [birth year] Chief complaint: Here for yearly exam for VTD/MR today. History of Present Illness: Patient states some vision changes. Denies floaters/flashes OU. No pain/discomfort OU, but still having irritation with OS. *needs refill for all drops Drops Using: ATs BID OU ketotifen TID OU Eye History: IOL OU hx PVD OU hx CAROL OU hx SAC Active problems - Computerized Problem List is the source for the followin. Pain in left knee (SNOMED CT 397662580960473) 2. Hyperlipidemia (SNOMED CT 66140990) 3. Screening for Malignant Neoplasms of colon - colonoscopy 09/09--> hyperplastic polyp 4. Osteoarthritis, Knee 5. Dyslipidemia 6. Allergic rhinitis 7. Allergic asthma 8. Health maintenance alteration 9. Acute back pain with sciatica 10. Low back pain 11. Paresthesia of foot (SNOMED CT 330688461) 12. Schmorl's nodes of lumbar region 13. Plantar fasciitis of right foot 14. Tibialis posterior tendinitis 15. Enthesopathy of foot region 16. cervical laminoplasty 17. Gastro-esophageal reflux disease with esophagitis 18. Essential hypertension Surgeries: JUL 02, 2017 Proc: Excision of right upper quadrant and left upper quadrant lipomas Full Exam Allergies: INFLUENZA (September 20, 2004) MORPHINE (Nov 14, 2006) SULFA DRUGS (Nov 14, 2006) PENICILLIN (Nov 20, 2006) No new Allergies. Past Medical History: Hypertension High cholesterol Social History: Alcohol use - yes Tobacco use - no Last refraction: 07/14/21 Vision: OD:CC(with glasses) OD: 20/20 Vision: OS:CC(with glasses) 0S: 20/25-2/+2 blurry Current glasses: -1.00 +0.75 x135 -1.00 +1.50 x145 +2.50BF Refraction: Manifest: YES Automated: NO OD: -1.00 +0.75 x135 (NC) 20/NI OS: -0.50 +1.25 x173 20/20 Add: +2.50 Near vision: OU 20/20 Comment: *pt prefers new rx in OS compared to his glasses rx. Confrontational Blue: Full to finger counting: Right: Yes Left: Yes Pupils: Right: Round Left: Round Size: Right: 3 Left: 3 React to light: Right: Yes Left: Yes Afferent pupil defect: Right:No Grade: Left: No Grade: Intra-ocular pressure (IOP): OD: 9 OS: 10 iCare Dilation: mydriacyl 1% and neosynephrine OU @ 8:33 . /jody/ ZEE LATIF HEALTH RENAL DIETITIAN Signed: 04/19/2023 08:33 ZEE LATIF [facility]
--- OUTSIDE RECORDS SUMMARY | 2024-01-31 12:31 | XMS_ITS | Encounter Summary ---
Author Name [facility] [place] Address [address] [place] [address] Care Team Providers Care Antisubmarine Weapons Officer Name Role Phone JOSE LOMBARDI [facility] Insurance Providers: All historical and current Section Date Range: From patient's date of to the date document was created. This section includes the names of all active insurance providers for the patient. Insurance Provider Type of Coverage Plan Name Start of Policy Coverage End of Policy Coverage Group Number Member ID Insurance Provider's Telephone Number Policy Rodriguez's Name Patient's Relationship to Policy Rodriguez [facility] MEDIC[facility] ([facility]) May 07, 2023 [id number] [phone] JOVANNIANJU PATIENT [employer] [facility] ([facility]) MEDICARE ADVANTAGE [facility] ([facility]) May 07, 2018 [id number] [phone] ANJU BAIG PATIENT [employer] [facility] (R) MEDICARE ADVANTAGE [facility] ([facility]) May 07, 2021 [id number] JOVANNIANJU PATIENT [employer] [facility] ([facility]) MEDICARE ADVANTAGE [facility] ([facility]) May 07, 2019 [id number] ANJU BAIG PATIENT [employer] [facility] (WNR) MEDICARE [facility] ([facility]) May 07, 2019 [id number] JOVANNI ANJU PATIENT Selected Encounter This section includes the information on record at [place] for the Encounter. Date/Time Encounter Type Encounter Description Reason Provider Source Apr 19, 2023 07:30 AM OFF/OP CNSLTJ NEW/EST MOD 40 PODIATRY ICD-10-CM L60.0 Ingrowing nail RUTH MARTELL Yecenia Encounter Template Text not used by [place] Assessments - Encounter Diagnoses This section includes the primary and secondary diagnoses documented for the Encounter. Date/Time Primary/Secondary Diagnosis Diagnosis Name Provider Source Apr 19, 2023 02:48 PM PRIMARY Ingrowing nail RUTH MARTELL [facility] Apr 19, 2023 02:48 PM SECONDARY Localized edema MAKAYLA MARTELLTANY [facility]YCE [facility] Apr 19, 2023 02:48 PM SECONDARY Other instability, right foot JASBIRRUTH [facility] Apr 19, 2023 02:48 PM SECONDARY Radiculopathy, lumbar region [facility] Plan of Treatment: Future Appointments (+ 6 months) and Future Tests (+/- 45 days) The Plan of Treatment section includes future care activities for the patient from all [place] [facility] This section includes future appointments and future orders which are active, pending or scheduled. Future Appointments This section includes appointments that were scheduled to occur 6 months from the date of the Encounter, up to a maximum of 20 appointments. The data comes from all [place] treatment facilities. Appointment Date/Time Appointment Type Appointme nt Facility Name May 09, 2023 01:00 PM AMBULATORY - SURGERY [facility] May 17, 2023 11:00 AM AMBULATORY - NONE [facility] May 29, 2023 01:30 PM AMBULATORY - NONE [facility] Jun 13, 2023 08:30 AM AMBULATORY - MEDICINE [facility] Jul 04, 2023 10:30 AM AMBULATORY - NONE [facility] Jul 13, 2023 10:00 AM AMBULATORY - NONE [facility] Oct 16, 2023 02:00 PM AMBULATORY - SURGERY [facility] Social History: Smoking Status (Most current) and Tobacco Use (All prior to encounter date) This section includes the most current, and the historical, smoking and tobacco- related health factors from the [place] facility where the Encounter took place. Current Smoking Status This section includes the most current smoking, or tobacco-related health factor, from the [place] facility where the Encounter took place. Date/Time Current Smoking Status Comment Dafne vu Nov 14, 2006 09:22 AM FORMER TOBACCO USER 7Y OR GREATE R [facility] Advance Directives: All historical and current Section Date Range: From patient's date of to the date document was created. This section includes ALL of a patient's completed or amended [place] Advance and Rescinded Directives. The entries below indicate that a directive exists for the patient, but an actual copy is not included with this document. The data comes from all [place] facilities. Date Advance Directives Provider Source September 22, 2021 ADVANCE DIRECTIVE RICHARD PLASCENCIA [facility] September 22, 2021 ADVANCE DIRECTIVE DISCUSSION ROBERTO PLASCENCIA [facility] Sep 01, 2016 ADVANCE DIRECTIVE DISCUSSION ROBEROT PLASCENCIA [facility] Sep 01, 2016 ADVANCE DIRECTIVE RICHARD PLASCENCIA [facility] Encounter Notes: All associated encounter notes This section contains the clinical notes associated to the Encounter. Date/Time Encounter Note(s) Provider Source Apr 19, 2023 07:53 AM PODIATRY CONSULT: [facility] TITLE: PODIATRY CONSULT STANDARD TITLE: PODIATRY CONSULT DATE OF NOTE: APR 19, 2023@07:53 ENTRY DATE: APR 19, 2023@07:53:19 AUTHOR: RUTH MARTELL EXP COSIGNER: URGENCY: STATUS: COMPLETED Subjective: 72 year old male presents to clinic for evaluation of his right hallux nail. Over the last few weeks, he has had evidence of ingrown nail. He was placed on oral antibiotics. He believes the nail has improved since the abx and soaking in epsom salts. He has history of ingrown nail in the past. He also is requesting new shoes and inserts today for cuboid syndrome of his right foot. Overall he is feeling well today. He denies any nausea, vomiting, fever, chills, shortness of breath, chest pain. Problems: Pain in left knee (SCT 451439864048647) Hyperlipidemia (SCT 98479244) Screening for Malignant Neoplasms of colOsteoarthritis, Knee (ICD-9-CM 715.96) Dyslipidemia (SCT 739468345) Allergic rhinitis (SCT 25530659) Allergic asthma (SCT 042569942) Health maintenance alteration (SCT 45549622) Acute back pain with sciatica (SCT 94162Iev back pain (SCT 865294528) Paresthesia of foot (SCT 295671137) Schmorl's nodes of lumbar region (SCT 53044878) Plantar fasciitis of right foot (SCT 122Tibialis posterior tendinitis (SCT 051686175) Enthesopathy of foot region (SCT 0003788usfskgzc laminoplasty (ICD-10-CM R69.) Gastro-esophageal reflux disease with es Allergies: FACILITY ALLERGY/ADR -------- No Remote Allergy/ADR Data available for this patient [facility] INFLUENZA [facility] MORPHINE [facility] SULFA DRUGS Medications: Active Outpatient Medications (including Supplies): Active Outpatient Medications Status 1) ALBUTEROL 90MCG (CFC-F) 200D ORAL INHL INHALE 2 PUFFS ACTIVE BY INHALATION FOUR TIMES A DAY NEEDED FOR SHORTNESS OF BREATH SHAKE WELL (FOR IMMEDIATE RELIEF). 2) AMLODIPINE BESYLATE 10MG TAB TAKE ONE-HALF TABLET BY ACTIVE MOUTH EVERY DAY FOR BLOOD PRESSURE 3) ATORVASTATIN CALCIUM 20MG TAB TAKE ONE-HALF TABLET BY ACTIVE MOUTH AT BEDTIME 4) CARBOXYMETHYLCELLULOSE NA 0.25% OPH SOLN INSTILL 1 ACTIVE DROP IN BOTH EYES FOUR TIMES A DAY 5) KETOTIFEN 0.025% OPH SOLN INSTILL 1 DROP IN BOTH EYES ACTIVE TWICE A DAY Active Non-VA Medications Status 1) Non-VA BUDESONIDE 32MCG 120D NASAL INHL 2 PUFFS EACH ACTIVE NOSTRIL NEEDED 6 Total Medications 10 Point ROS negative unless noted in the HPI. Objective: Patient is AOx3. NAD. Pleasant and cooperative. Vascular: Pedal pulses palpable 2/4 at the DP and PT locations bilateral. Capillary refill time is less than 5 seconds. Mild nonpitting edema to the lower extremity with varicosities appreciated at the level of the ankle joint. Neurologic: Light touch and gross sensation intact. Some loss of protective sensation is noted. Dermatologic: Skin is of normal texture and turgor. Temperature is warm to cool from proximal to distal. No open lesions or sores, webspaces are clean and dry. Toenails are intact. The right medial hallux nail border has evidence of incurvation with hypertrophy of medial nail fold. No drainage noted. No signs of infection noted. Musculoskeletal: No gross deformity noted. Arch height and contour normal. Muscle strength 5/5 for all groups tested. No pain is noted on today's examination. No obvious subluxation is noted. Assessment: Right hallux ingrown nail, medial border without evidence of infection Cuboid syndrome, right Lumbar radiculopathy Edema Plan: -Patient examined and evaluated. Discussed findings with patient. -New consult placed for extra depth shos and orthotics. History of cuboid syndrome on right foot. -Discussed treatment for ingrowing nail including removal and matrix procedure. Patient would like to have a partial matrixectomy of the right hallux nail. Discussed risks and benefits of this. Offered procedure today, but would like to reschedule. He understands to bring a large toe box shoe on day of visit. Aftercare instructions were dispensed for patient to review prior to procedure. -Follow up in the minor procedure clinic. Warned of signs of infection. Patient may continue epsom salt soaks until nail is removed. /jody/ RUTH MARTELL DPM AUTO TECHNICIAN MECHANIC Signed: 04/19/2023 14:[address] [facility]
--- OUTSIDE RECORDS SUMMARY | 2024-01-31 12:31 | XMS_ITS | Encounter Summary ---
Author Name [place] Address [address] [place] [address] Care Team Providers Care Distributor Operator Name Role Phone JOSE LOMBARDI Primary Care Provider [facility] Insurance Providers: All historical and [...] Rodriguez's Name Patient's Relationship to Policy Rodriguez [facility] ([facility]) MEDICARE ADVANTAGE [facility] ([facility]) May 07, 2023 [id number] [phone] JOVANNIANJU PATIENT [facility] ([facility]) MEDICARE [facility] ([facility]) May 07, 2018 [id number] [phone] JOVANNIANJU PATIENT [employer] [facility] ([facility]) MEDICARE ADVANTAGE [facility] ([facility]) May 07, 2021 [id number] JOVANNIANJU PATIENT [employer] [facility] ([facility]) MEDICARE ADVANTAGE [facility] ([facility]) May 07, 2019 [id number] [phone] ANJU BAIG PATIENT [employer] [facility] ([facility]) MEDICARE ADVANTAGE [facility] ([facility]) May 07, 2019 [id number] ANJU BAIG PATIENT Selected Encounter This section includes the information on record at [place] for the Encounter. Date/Time Encounter Type Encounter Description Reason Provider Source Feb 22, 2023 01:00 PM THERAPEUTIC EXERCISES OCCUPATIONAL THERAPY ICD-10-CM S62.665D Nondisp fx of dist phalanx of l rng clay, D ABA SANDRA IHYecenia Encounter Template Text not used by [place] Assessments - Encounter Diagnoses This section includes the primary and secondary diagnoses documented for the Encounter. Date/Time Primary/Secondary Diagnosis Diagnosis Name Provider Source Feb 22, 2023 12:03 PM PRIMARY Nondisp fx of dist phalanx of l rng fncharis, ABA Armenta [facility] Plan of Treatment: Future Appointments (+ 6 months) and Future Tests (+/- 45 days) The Plan of Treatment section includes future care activities for the patient [facility] all [place] [facility]. This section includes future appointments [...] 10:00 AM AMBULATORY - MEDICINE [facility] Apr 19, 2023 07:30 AM AMBULATORY - SURGERY [facility] Apr 19, 2023 08:20 AM AMBULATORY - SURGERY [facility] May 09, 2023 01:00 PM AMBULATORY - SURGERY [facility] May 17, 2023 11:00 AM AMBULATORY - NONE [facility] May 29, 2023 01:30 PM AMBULATORY - NONE [facility] Jun 13, 2023 08:30 AM AMBULATORY - MEDICINE [facility] Jul 04, 2023 10:30 AM [facility] Jul 13, 2023 10:00 AM AMBULATORY - NONE [facility] Social History: Smoking Status (Most current) and [...] place. Date/Time Current Smoking Status Comment Dafne itjennifer Nov 14, 2006 09:22 AM FORMER TOBACCO USER 7Y OR GREATE R [facility] Advance Directives: All historical and current Section Date Range: From patient's date of to the date document was created. This section includes ALL of a patient's completed or amended [place] Advance and Rescinded Directives. The entries below indicate that a directive exists for the patient, but an actual copy is not included with this document. The data comes from all [place] facilities. Date Advance Directives Provider Source September 22, 2021 ADVANCE DIRECTIVE RICHARD PLASCENCIA [facility] September 22, 2021 ADVANCE DIRECTIVE DISCUSSION ROBERTO PLASCENCIA [facility] Sep 01, 2016 ADVANCE DIRECTIVE DISCUSSION ROBERTO PLASCENCIA [facility] Sep 01, 2016 ADVANCE DIRECTIVE RICHARD PLASCENCIA [facility] Radiology Reports: +/- 30 days of the [...] the Encounter. The data comes from all [place] treatment facilities. Date/Time Radiology Report Provider Source Feb 22, 2023 07:45 AM FINGER(S) LEFT 2 V IEWS OR MORE: ANJU BAIG [id number] -[id number] M Exm Date: FEB 22, 2023@07:45 Req Phys: BROOKLYN BRADY Pat Loc: [facility] ORTHO [employer] DEVELOPER ZEBRA CONSULT AM Img Loc: MAIN X-RAY Service: Unknown (Case [id number] COMPLETE) FINGER(S) LEFT 2 VIEWS OR MORE (RAD Detailed) CPT:12094 Proc Modifiers : LEFT Reason for Study: Left ring finger fx Clinical History: [place] IS NOT under investigation for COVID-19 or is COVID-19 negative Left ring finger fx Responsible provider name and phone number to notify for critical findings if other than user placing the order and pager listed below: User placing orders pager: [phone] ortho [phone] LAST CREATININE 0.9 (06/05/22) Report Status: Verified Date Reported: FEB 22, 2023 Date Verified: FEB 22, 2023 Emergency Management Program Specialist E-Sig:/ES/ALISHA OSULLIVAN MD, FACR, CCD Report: EXAMINATION: [...] Staff: ALISHA OSULLIVAN MD, FACR, STAFF RADIOLOGIST (Emergency Management Program Specialist) /BSF ALISHA OSULLIVAN [facility] Feb 15, 2023 08:43 AM NON VA FINGER(S) L EFT: ANJU BAIG [id number] -[id number] M Exm Date: FEB 15, 2023@08:43 Req Phys: JOSE LOMBARDI Pat Loc: [facility] XRAY GENERAL AM (Req'g Loc Img Loc: OUTSOURCE MAIN X-RAY Service: Unknown (Case [id number] COMPLETE) NON VA FINGER(S) LEFT (RAD Detailed) CPT:84475 Reason for Study: outside study Clinical History: outside study Report Status: Electronically Filed Date Reported: FEB 22, 2023 Report: This is an outside Imaging study and/or report imported for continuity of patient care. This Imaging study and/or report was not reviewed or verified by a [place] Radiologist. Impression: This is an outside Imaging study and/or report imported for continuity of patient care. This Imaging study and/or report was not reviewed or verified by a [place] Radiologist. Primary Diagnostic Code: VERIFIED BY: / *ELECTRONICALLY FILED* [facility] Encounter Notes: All associated encounter notes This section contains the clinical notes associated to the Encounter. Date/Time Encounter Note(s) Provider Source Feb 22, 2023 11:31 AM OCCUPATIONAL THERA PY CONSULT: LOCAL TITLE: OCCUPATIONAL THERAPY CONSULT STANDARD TITLE: OCCUPATIONAL THERAPY CONSULT DATE OF NOTE: FEB 22, 2023@11:31 ENTRY DATE: FEB 22, 2023@11:32 AUTHOR: ABA SANDRA EXP COSIGNER: URGENCY: STATUS: COMPLETED Medical Diagnosis: Left ring finger Tuft Fracture Referring Provider: Brooklyn Brady CNP Date of Injury: 02/13/23 Total Treatment Time: 40 Minutes Billing: Low complexity eval; TE 10 minutes, Orthotic management 15 minutes SUBJECTIVE: [place] reports he injured his finger with a wood splinting machine last Sunday, he has been doing wound care diligetnly, and has been using an alumafoam splint to keep finger straight. He just saw Ortho provider and was sent to OT for finger tip protector orthosis fabrication and instruction of HEP. HAND DOMINANCE: Right OCCUPATION: Retired AVOCATION: projects around the house SOCIAL HX/HOME ENVIRONMENT: Lives alone in single family home PAIN: NPRS (Numerical Pain Rating Scale 0-10): At Rest: 3-4 /10 With Activity: 8 10 Pertinent Past Medical Hx: multiple wrist/hand surgerys by Dr. Pam Tom at [facility] Precautions: Fracture Prior level of function: Independent Cognition: No concerns Barriers to learning: no barriers identified OBJECTIVE: OBSERVATION: No drainage or signs of infection noted around nail bed; nail has been removed ( stated he removed it himself). EDEMA: Mild edema around finger tip ROM: Good PIP joint ROM, SENSORY: Some diminished sensation around finger tip reported by ; bumping finger can increased pain significantly. TREATMENT PROVIDED TODAY: An OT Evaluation completed today. THERAPEUTIC EXERCISES: 10 Minutes [place] was instructed in, performed and provided handouts for the following exercises: - Finger MP Flexion AROM - 2-3 x daily - 5-10 reps - Seated Straight Fist AROM - 2-3 x daily - 5-10 reps - Finger PIP Flexion Extension with Blocking - 2-3 x daily - 5-10 reps - Seated Finger DIP Flexion AROM with Blocking - 2-3 x daily - 5-10 reps [facility] Access Code: [email or web address] Instructed in desensitization techniques, including texture massage and tapping techniques. Practiced in clinic today with good tolerance. ORTHOTIC(S) MANAGEMENT & TRAININ Minutes The custom orthosis was fabricated as requested from a flat sheet of low- temperature thermoplastic material. A pattern was measured and cut to fit this individual . The orthotic plastic material was then heated in a safe manner until the material became pliable enough to be directly applied to the . The material was then custom molded on the according to individual heat tolerance to provide the following orthosis in compliance with the rehabilitation goals and/or physician's prescription. The following orthosis was custom fabricated: FINGER ORTHOSIS (FO)- Finger tip protector orthosis (clam shell design) was instructed verbally and provided with written information regarding orthosis wear, care, and precautions. [place] was able to don and doff orthosis independently.* Purpose of Orthosis: Provide rest/balance to tissues Protect recent injury Orthosis to be worn : STRENUOUS/RISKY ACTIVITY As needed for comfort ASSESSMENT: presented with Sx consistent with Left Ring finger tuft Fx that occured 9 days ago; nail bed/wound site is healed with no concerns of infection; decreased ROM and pain noted with finger AROM today, Altered sensation along finger tip noted, which is expected for this type of injury. [place] was receptive to today's information and education provided. They were agreeable to treatment plan and will continue independently with HEP. FUNCTIONAL LIMITATIONS: Decreased ROM, strength, pain REHAB POTENTIAL: Good GOALS: [place] will be independent with orthosis use and management to improved functional use of UE by end of today's session - Goal met PLAN: Number of Visits: 1 Frequency: One time visit only Treatment plan will include: Orthotic Management Therapeutic Exercises Plan For Next Visit: RTC for orthosis adjustment prn. Otherwise consider discharged. EVALUATION COMPLEXITY OCCUPATIONAL THERAPY EVALUATION COMPLEXITY Identifying and reporting the complexity level of an evaluation focuses on the first three of these factors--profile and history, assessment and determination of deficts, and clinical decision making. These three factors must be scored and defensible documentation written to support the choice of a level. (Information taken from: https://www.aota.org) LOW COMPLEXITY Brief history of medical/or therapy records relating to the presenting problem. An assessement(s) that identifies 1-3 performance deficits that result in activity limitation and/or participating restrictions. Includes analysis of the occupational profile, analysis of date from problem- focused assessment(s), and consideration of a limited number of treatment options. Patient presents with no comorbidities that affect occupational performance. Modification of tasks or assistance with assessment(s) is not necessary to enable completion of evaluation component. * /jody/ WALDEMAR PENA/William, LEX OCCUPATIONAL THERAPIST Signed: 02/22/2023 12:03 ABA [facility]
--- OUTSIDE RECORDS SUMMARY | 2024-01-31 12:31 | XMS_ITS | Continuity of Care Document ---
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 It does not include entries that were removed or entered in error. Problem Status Onset Date Problem Type Date of Resolution Comments Source Acute back pain with sciatica Active [facility] Allergic asthma Active Condition [facility] Allergic rhinitis Active Condition [facility] cervical laminoplasty Active Condition [facility] Dyslipidemia Active Condition [facility] Enthesopathy of foot region Active [facility] Essential hypertension Active Condition [facility] Gastro-esophageal reflux disease with esophagitis Active Condition [facility] Health maintenance alteration Active Condition [facility] Hyperlipidemia (SNOMED CT 67716162) Active Condition [facility] Low back pain Active Condition [facility] Osteoarthritis, Knee Active Condition [facility] Pain in left knee (SNOMED CT [id number]) Active Condition [facility] Paresthesia of foot (SNOMED CT 381208557) Active Condition [facility] Plantar fasciitis of right foot Active Condition [facility] Schmorl's nodes of lumbar region Active Condition [facility] Screening for Malignant Neoplasms of colon Active Condition Nov 29, 2006 Entered By: FLAVIA ART Comment: colonoscopy 09/09--> hyperplastic polyp [facility] Tibialis posterior tendinitis Active Condition [facility] Diagnosis: ICD-10-CM M77.41 Metatarsalgia, right foot Active Diagnosis [facility] Diagnosis: ICD-10-CM M25.571 Pain in right ankle and joints of right foot Active Diagnosis [facility] Diagnosis: ICD-10-CM M25.375 Other instability, left foot Active Diagnosis [facility] Diagnosis: ICD-10-CM Z00.8 Encounter for other general examination Active Diagnosis [facility] Diagnosis: ICD-10-CM M25.374 Other instability, right foot Active Diagnosis [facility] Diagnosis: ICD-10-CM L60.0 Ingrowing nail Active Diagnosis ORI Osborne [facility] Diagnosis: ICD-10-CM H04.123 Dry eye syndrome of bilateral lacrimal glands Active Diagnosis ROSCOE SANTANA [facility] Diagnosis: ICD-10-CM Z71.9 Counseling, unspecified Active Diagnosis [facility] Diagnosis: ICD-10-CM S62.665D Nondisp fx of dist phalanx of l rng fngr, 7thD Active Diagnosis [facility] Diagnosis: ICD-10-CM S62.605A Fracture of unsp phalanx of left ring finger, init Active Diagnosis [facility] Diagnosis: ICD-10-CM M25.569 Pain in unspecified knee Active Diagnosis 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 Medication Details Route Status Patient Instructions Prescription Expires Prescription Number Last Dispense Date Ordering Provider Order Date Order Qty Source AMLODIPINE BESYLATE 10MG TAB AMLODIPI NE BESYLATE 10MG TAB Disconti nued TAKE ONE-HALF TABLET BY MOUTH EVERY DAY FOR BLOOD PRESSURE Jun 13, 2023 45 Jun 13, 2024 [id number] H September 19, 2023 [facility] OR[facility] DISCONT INUED 06/13/2024 [id number] JOSE LOMBARDI 2023 45 [facility] AMLODIPINE BESYLATE 10MG TAB AMLODIPI NE BESYLATE 10MG TAB Disconti nued TAKE ONE-HALF TABLET BY MOUTH EVERY DAY FOR BLOOD PRESSURE Jun 05, 2022 45 Jun 06, 2023 [id number] G Apr 10, 2023 [facility] ORAL DISCONT INUED 06/06/2023 [id number] JOSE LOMBARDI 2022 45 [facility] AMLODIPINE BESYLATE 5MG TAB AMLODIPI NE BESYLATE 5MG TAB Active TAKE ONE TABLET BY MOUTH EVERY DAY FOR BLOOD PRESSURE Nov 26, 2023 90 Jun 13, 2024 [id number] Nov 26, 2023 [facility] ORAL ACTIVE 06/13/2024 [id number] 4 JOSE LOMBARDI 2023 90 [facility] BUDESONIDE 32MCG/ACTUA T INHL,NASAL, 8.43GM BUDESONI DE 32MCG/AC TUAT INHL,SAMMY AL,8.43G M Non-VA SPRAY 2 PUFFS IN EACH NOSTRIL PRN Nov 14, 2006 Non-[facility] Document ed by: GURJIT JEFFERY Document ed at: [facility] NASAL ACTIVE JOSE G ART 2006 [facility] CARBOXYMETH YLCELLULOSE NA 0.5% (PF) SOLN,OPH,0. 4ML CARBOXYM ETHYLCEL LULOSE NA 0.5% (PF) SOLN,OPH ,0.4ML Active INSTILL 1 DROP IN BOTH EYES FOUR TIMES A DAY Apr 19, 2023 30 Apr 19, 2024 [id number] B Aug 27, 2023 NELLI BAXTER [facility] OPHTH[facility] LMIC ACTIVE 04/19/2024 [id number] 4 Jordon BAXTER 2022 30 [facility] IBUPROFEN 800MG TAB IBUPROFE N 800MG TAB Active TAKE ONE TABLET BY MOUTH THREE TIMES A DAY NEEDED FOR PAIN -TAKE WITH FOOD Jun 13, 2023 270 Jun 13, 2024 [id number] D Jul 18, 2023 [facility] ORAL ACTIVE 06/13/2024 [id number] JOSE LOMBARDI 2023 270 [facility] IBUPROFEN 800MG TAB IBUPROFE N 800MG TAB Disconti nued TAKE ONE TABLET BY MOUTH THREE TIMES A DAY NEEDED FOR PAIN -TAKE WITH FOOD Jun 05, 2022 270 Jun 06, 2023 [id number] C Apr 29, 2023 [facility] ORAL DISCONT INUED 06/06/2023 [id number] JOSE LOMBARDI 2022 270 [facility] KETOTIFEN 0.025% SOLN,OPH KETOTIFE N 0.025% SOLN,OPH Active INSTILL 1 DROP IN BOTH EYES TWICE A DAY Apr 19, 2023 15 Apr 19, 2024 [id number] C Nov 27, 2023 NELLI [facility]AXTER [facility] OPHTHA LMIC ACTIVE 04/19/2024 [id number] 4 Jordon BAXTER B 2022 15 [facility] OLIS [facility] KETOTIFEN 0.025% SOLN,OPH KETOTIFE N 0.025% SOLN,OPH Disconti nued INSTILL 1 DROP IN BOTH EYES TWICE A DAY Apr 24, 2022 15 Apr 25, 2023 [id number] B Feb 08, 2023 MERCEDES MAE D [facility] OPH[facility] LMIC DISCONT INUED 04/25/2023 [id number] ALE MAE OLL D 2021 15 [facility] PRAVASTATIN NA 40MG TAB PRAVASTA TIN NA 40MG TAB Active TAKE ONE TABLET BY MOUTH AT BEDTIME FOR CHOLESTE ROL - REPLACES ATORVAST ATIN PRESCRIP TION Jun 13, 2023 30 Jun 13, 2024 [id number] B Jun 13, 2023 [facility] ORAL ACTIVE 06/13/2024 [id number] 4 JOSE LOMBARDI 2023 30 [facility] Allergies, Adverse Reactions, Alerts Combined list of allergies from Department of Defense and Veterans Affairs facilities. It does not include entries that were removed or entered in error. Substance Category Reaction Severity Reaction type Status Date Reported Comments Source INFLUENZA Propensity to adverse reactions to drug (finding) HIVES active 5 [facility] MORPHINE Propensity to adverse reactions to drug (finding) Finding of vomiting active 7 [facility] PENICILLIN Propensity to adverse reactions to drug (finding) Eruption active 7 [facility] SULFA DRUGS Propensity to adverse reactions to drug (finding) Eruption active 7 [facility] Immunizations Combined list of available immunizations from the Department of Defense and Veterans Affairs facilities. 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), MRNA, LNP-S, BIVALENT BOOSTER, PF, 30 MCG/0.3 ML DOSE 1 2022 ELIZABETH CARRILLO LEFT DELTO ID [id number] 300 complet ed [facility] INFLUENZA, UNSPECIFIED FORMULATION 2021 88 complet ed [facility] COVID-19 ([facility]), MRNA, LNP-S, PF, 30 MCG/0.3 ML DOSE, LEANA-SUCROSE (AGES 12+ YEARS) 4 2021 217 complet ed PFR; [id number]; 2 [facility] COVID-19 ([facility]), MRNA, LNP-S, PF, 30 MCG/0.3 ML DOSE 3 2020 208 complet ed PFR; [id number]; 2 [facility] INFLUENZA, HIGH-DOSE, QUADRIVALENT 2020 197 complet ed Partner:Dina PEREYRA.Admin istered by:[facility] [id number].( [id number]).ND:[id number] [phone] .Address: [address] [place] [address].[facility] [place]LE.MN.5 [id number] Dosage: ML 0.7 [facility] COVID-19 ([facility]), MRNA, LNP-S, PF, 30 MCG/0.3 ML DOSE 2 2020 208 complet ed PFR; [id number]; 1 [facility] COVID-19 ([facility]), MRNA, LNP-S, PF, 30 MCG/0.3 ML DOSE 1 2020 208 complet ed PFR; [id number]; 1 [facility] INFLUENZA, HIGH DOSE SEASONAL 2019 135 complet ed [facility] INFLUENZA, UNSPECIFIED FORMULATION 2019 88 complet ed [facility] INFLUENZA, HIGH DOSE SEASONAL 2018 135 complet ed [facility] ZOSTER RECOMBINANT 2 2018 187 complet ed [facility] ZOSTER RECOMBINANT 1 2018 187 complet ed [facility] INFLUENZA, HIGH DOSE SEASONAL 2017 135 complet ed [facility] INFLUENZA, HIGH DOSE SEASONAL 2016 135 complet ed [facility] INFLUENZA, HIGH DOSE SEASONAL 2016 135 complet ed [facility] PNEUMOCOCCAL CONJUGATE PCV 13 2016 133 complet ed [facility] TDAP 2016 115 complet ed [facility] INFLUENZA, HIGH DOSE SEASONAL 2015 135 complet ed [facility] PNEUMOCOCCAL CONJUGATE PCV 13 2014 133 complet ed [facility] PNEUMOCOCCAL POLYSACCHARID E PPV23 2014 33 complet ed [facility] PNEUMOCOCCAL POLYSACCHARID E PPV23 2014 33 complet ed [facility] TDAP 2012 115 complet ed [facility] ZOSTER LIVE 2010 121 complet ed [facility] INFLUENZA, INJECTABLE, QUADRIVALENT, PRESERVATIVE FREE 2008 150 complet ed [facility] NOVEL INFLUENZA-H1N 1-09, ALL FORMULATIONS 2008 128 complet ed [facility] INFLUENZA (HISTORICAL) 2002 88 complet ed [facility] PNEUMOCOCCAL POLYSACCHARID E PPV23 2000 33 complet ed [facility] TD(ADULT) UNSPECIFIED FORMULATION 1997 139 complet ed [facility] Results Combined list of recent chemistry, [...] Jun 13, 2023 09:00 AM Reporting Lab: [place] [id number] Performing Lab: [facility] [phone] [facility] COMPREHEN SIVE METABOLIC PANEL+MG CREATININE [MASS/VOLUM E] IN SERUM OR PLASMA 0.8 mg/dL 0.7 - 1.2 06/13 Specimen Type: PLASMA No comment entered. Ordering Provider: HAYDEE LOMBARDI Report Released Date/Time: Jun 13, 2023 09:00 AM Reporting Lab: [facility] [phone] Performing Lab: [facility] [address] [facility] COMPREHEN SIVE METABOLIC PANEL+MG UREA NITROGEN [MASS/VOLUM E] IN SERUM OR PLASMA 11 mg/dL 8 - 26 06/13 Specimen Type: PLASMA No comment entered. Ordering Provider: HAYDEE LOMBARDI Report Released Date/Time: Jun 13, 2023 09:00 AM Reporting Lab: [facility] [address] Performing Lab: [facility] [address] [facility] COMPREHEN SIVE METABOLIC PANEL+MG GLUCOSE [MASS/VOLUM E] IN SERUM OR PLASMA 107 mg/dL 70 - 100 06/13 H Specimen Type: PLASMA No comment entered. Ordering Provider: HAYDEE LOMBARDI Report Released Date/Time: Jun 13, 2023 09:00 AM Reporting Lab: [facility] [address] Performing Lab: [facility] [address] [facility] COMPREHEN SIVE METABOLIC PANEL+MG SODIUM [MOLES/VOLU ME] IN SERUM OR PLASMA 139 mmol/L 136 - 145 06/13 Specimen Type: PLASMA No comment entered. Ordering Provider: HAYDEE LOMBARDI Report Released Date/Time: Jun 13, 2023 09:00 AM Reporting Lab: [facility] [address] Performing Lab: [facility] [address] [facility] COMPREHEN SIVE METABOLIC PANEL+MG POTASSIUM [MOLES/VOLU ME] IN SERUM OR PLASMA 4.0 mmol/L 3.5 - 5.1 06/13 Specimen Type: PLASMA No comment entered. Ordering Provider: HAYDEE LOMBARDI Report Released Date/Time: Jun 13, 2023 09:00 AM Reporting Lab: [facility] [address] Performing Lab: [facility] [address] [facility] COMPREHEN SIVE METABOLIC PANEL+MG CHLORIDE [MOLES/VOLU ME] IN SERUM OR PLASMA 104 mmol/L 98 - 107 06/13 Specimen Type: PLASMA No comment entered. Ordering Provider: HAYDEE LOMBARDI Report Released Date/Time: Jun 13, 2023 09:00 AM Reporting Lab: [facility] [address] Performing Lab: [facility] [address] [facility] COMPREHEN SIVE METABOLIC PANEL+MG CARBON DIOXIDE, TOTAL [MOLES/VOLU ME] IN SERUM OR PLASMA 22 mmol/L 22 - 29 06/13 Specimen Type: PLASMA No comment entered. Ordering Provider: HAYDEE LOMBARDI Report Released Date/Time: Jun 13, 2023 09:00 AM Reporting Lab: [facility] [address] Performing Lab: [facility] [address] [facility] COMPREHEN SIVE METABOLIC PANEL+MG CALCIUM [MASS/VOLUM E] IN SERUM OR PLASMA 9.4 mg/dL 8.4 - 10.2 06/13 Specimen Type: PLASMA No comment entered. Ordering Provider: HAYDEE LOMBARDI Report Released Date/Time: Jun 13, 2023 09:00 AM Reporting Lab: [facility] [address] Performing Lab: [facility] [address] [facility] COMPREHEN SIVE METABOLIC PANEL+MG PROTEIN [MASS/VOLUM E] IN SERUM OR PLASMA 7.2 g/dL 6.0 - 8.3 06/13 Specimen Type: PLASMA No comment entered. Ordering Provider: HAYDEE LOMBARDI Report Released Date/Time: Jun 13, 2023 09:00 AM Reporting Lab: [facility] [address] Performing Lab: [facility] [address] [facility] COMPREHEN SIVE METABOLIC PANEL+MG ALBUMIN [MASS/VOLUM E] IN SERUM OR PLASMA 4.3 g/dL 3.5 - 5.2 06/13 Specimen Type: PLASMA No comment entered. Ordering Provider: HAYDEE LOMBARDI Report Released Date/Time: Jun 13, 2023 09:00 AM Reporting Lab: [facility] [address] Performing Lab: [facility] [address] [facility] COMPREHEN SIVE METABOLIC PANEL+MG BILIRUBIN.T OTAL [MASS/VOLUM E] IN SERUM OR PLASMA 0.5 mg/dL 0.2 - 1.2 06/13 Specimen Type: PLASMA No comment entered. Ordering Provider: HAYDEE LOMBARDI Report Released Date/Time: Jun 13, 2023 09:00 AM Reporting Lab: [facility] [address] Performing Lab: [facility] [address] [facility] COMPREHEN SIVE METABOLIC PANEL+MG MAGNESIUM [MASS/VOLUM E] IN SERUM OR PLASMA 1.9 mg/dL 1.6 - 2.6 06/13 Specimen Type: PLASMA No comment entered. Ordering Provider: HAYDEE LOMBARDI Report Released Date/Time: Jun 13, 2023 09:00 AM Reporting Lab: [facility] [address] Performing Lab: [facility] [address] [facility] COMPREHEN SIVE METABOLIC PANEL+MG ANION GAP IN SERUM OR PLASMA 13 mmol/L 5 - 15 06/13 Specimen Type: PLASMA No comment entered. Ordering Provider: HAYDEE LOMBARDI Report Released Date/Time: Jun 13, 2023 09:00 AM Reporting Lab: [facility] [address] Performing Lab: [facility] [address] [facility] COMPREHEN SIVE METABOLIC PANEL+MG ALKALINE PHOSPHATASE [ENZYMATIC ACTIVITY/VO LUME] IN SERUM OR PLASMA 69 U/L 40 - 150 06/13 Specimen Type: PLASMA No comment entered. Ordering Provider: HAYDEE LOMBARDI Report Released Date/Time: Jun 13, 2023 09:00 AM Reporting Lab: [facility] [address] Performing Lab: [facility] [address] [facility] COMPREHEN SIVE METABOLIC PANEL+MG ALANINE AMINOTRANSF ERASE [ENZYMATIC ACTIVITY/VO LUME] IN SERUM OR PLASMA 22 U/L <55 - 55 06/13 Specimen Type: PLASMA No comment entered. Ordering Provider: HAYDEE LOMBARDI Report Released Date/Time: Jun 13, 2023 09:00 AM Reporting Lab: [facility] [address] Performing Lab: [facility] [address] [facility] COMPREHEN SIVE METABOLIC PANEL+MG ASPARTATE AMINOTRANSF ERASE [ENZYMATIC ACTIVITY/VO LUME] IN SERUM OR PLASMA 17 U/L <34 - 34 06/13 Specimen Type: PLASMA No comment entered. Ordering Provider: HAYDEE LOMBARDI Report Released Date/Time: Jun 13, 2023 09:00 AM Reporting Lab: [facility] [address] Performing Lab: [facility] [address] [facility] COMPREHEN SIVE METABOLIC PANEL+MG GLOMERULAR FILTRATION RATE/1.73 SQ M.PREDICTED [VOLUME RATE/AREA] IN SERUM, PLASMA OR BLOOD BY CREATININE- BASED FORMULA (CKD-EPI 2020) >90 60 06/13 Specimen Type: PLASMA No comment entered. Ordering Provider: HAYDEE LOMBARDI Report Released Date/Time: Jun 13, 2023 09:00 AM Reporting Lab: [facility] [address] Performing Lab: [facility] [address] [facility] CBC & DIFF LEUKOCYTES [#/VOLUME] IN BLOOD BY AUTOMATED COUNT 7.58 10*3/u L 4.0 - 11.0 06/13 Specimen Type: BLOOD Comment: Automated Differentia l Performed Ordering Provider: HAYDEE LOMBARDI Report Released Date/Time: Jun 13, 2023 09:00 AM Reporting Lab: [facility] [address] Performing Lab: [facility] [address] [facility] CBC & DIFF ERYTHROCYTE S [#/VOLUME] IN BLOOD BY AUTOMATED COUNT 5.02 10*6/u L 4.6 - 6.2 06/13 Specimen Type: BLOOD Comment: Automated Differentia l Performed Ordering Provider: HAYDEE LOMBARDI Report Released Date/Time: Jun 13, 2023 09:00 AM Reporting Lab: [facility] [address] Performing Lab: [facility] [address] [facility] CBC & DIFF HEMOGLOBIN [MASS/VOLUM E] IN BLOOD 15.5 g/dL 13.5 - 17.9 06/13 Specimen Type: BLOOD Comment: Automated Differentia l Performed Ordering Provider: HAYDEE LOMBARDI Report Released Date/Time: Jun 13, 2023 09:00 AM Reporting Lab: [facility] [address] Performing Lab: [facility] [address] [facility] CBC & DIFF HEMATOCRIT [VOLUME FRACTION] OF BLOOD BY AUTOMATED COUNT 44.2 41 - 54 06/13 Specimen Type: BLOOD Comment: Automated Differentia l Performed Ordering Provider: HAYDEE LOMBARDI Report Released Date/Time: Jun 13, 2023 09:00 AM Reporting Lab: [facility] [address] Performing Lab: [facility] [address] [facility] CBC & DIFF MCV [ENTITIC VOLUME] BY AUTOMATED COUNT 88.0 fL 80 - 100 06/13 Specimen Type: BLOOD Comment: Automated Differentia l Performed Ordering Provider: HAYDEE LOMBARDI Report Released Date/Time: Jun 13, 2023 09:00 AM Reporting Lab: [facility] [address] Performing Lab: [facility] [address] [facility] CBC & DIFF MCH [ENTITIC MASS] BY AUTOMATED COUNT 30.9 pg 27 - 33 06/13 Specimen Type: BLOOD Comment: Automated Differentia l Performed Ordering Provider: HAYDEE LOMBARDI Report Released Date/Time: Jun 13, 2023 09:00 AM Reporting Lab: [facility] [address] Performing Lab: [facility] [address] [facility] CBC & DIFF MCHC [MASS/VOLUM E] BY AUTOMATED COUNT 35.1 g/dL 32.0 - 37.5 06/13 Specimen Type: BLOOD Comment: Automated Differentia l Performed Ordering Provider: HAYDEE LOMBARDI Report Released Date/Time: Jun 13, 2023 09:00 AM Reporting Lab: [facility] [address] Performing Lab: [facility] [address] [facility] CBC & DIFF PLATELETS [#/VOLUME] IN BLOOD BY AUTOMATED COUNT 463 10*3/u L 150 - 400 06/13 H Specimen Type: BLOOD Comment: Automated Differentia l Performed Ordering Provider: HAYDEE LOMBARDI Report Released Date/Time: Jun 13, 2023 09:00 AM Reporting Lab: [facility] [address] Performing Lab: [facility] [address] [facility] CBC & DIFF PLATELET MEAN VOLUME [ENTITIC VOLUME] IN BLOOD BY AUTOMATED COUNT 8.7 fL 7.4 - 10.4 06/13 Specimen Type: BLOOD Comment: Automated Differentia l Performed Ordering Provider: HAYDEE LOMBARDI Report Released Date/Time: Jun 13, 2023 09:00 AM Reporting Lab: [facility] [address] Performing Lab: [facility] [address] [facility] CBC & DIFF NEUTROPHILS /100 LEUKOCYTES IN BLOOD BY MANUAL COUNT 64.7 40.0 - 80.0 06/13 Specimen Type: BLOOD Comment: Automated Differentia l Performed Ordering Provider: HAYDEE LOMBARDI Report Released Date/Time: Jun 13, 2023 09:00 AM Reporting Lab: [facility] [address] Performing Lab: [facility] [address] [facility] CBC & DIFF LYMPHOCYTES /100 LEUKOCYTES IN BLOOD BY MANUAL COUNT 22.7 15.0 - 45.0 06/13 Specimen Type: BLOOD Comment: Automated Differentia l Performed Ordering Provider: HAYDEE LOMBARDI Report Released Date/Time: Jun 13, 2023 09:00 AM Reporting Lab: [facility] [address] Performing Lab: [facility] [address] [facility] CBC & DIFF MONOCYTES/1 00 LEUKOCYTES IN BLOOD BY AUTOMATED COUNT 7.0 2.0 - 12.0 06/13 Specimen Type: BLOOD Comment: Automated Differentia l Performed Ordering Provider: HAYDEE LOMBARDI Report Released Date/Time: Jun 13, 2023 09:00 AM Reporting Lab: [facility] [address] Performing Lab: [facility] [address] [facility] CBC & DIFF EOSINOPHILS /100 LEUKOCYTES IN BLOOD BY AUTOMATED COUNT 4.0 0.0 - 6.0 06/13 Specimen Type: BLOOD Comment: Automated Differentia l Performed Ordering Provider: HAYDEE LOMBARDI Report Released Date/Time: Jun 13, 2023 09:00 AM Reporting Lab: [facility] [address] Performing Lab: [facility] [address] [facility] CBC & DIFF BASOPHILS/1 00 LEUKOCYTES IN BLOOD BY MANUAL COUNT 1.2 0.0 - 2.0 06/13 Specimen Type: BLOOD Comment: Automated Differentia l Performed Ordering Provider: HAYDEE LOMBARDI Report Released Date/Time: Jun 13, 2023 09:00 AM Reporting Lab: [facility] [address] Performing Lab: [facility] [address] [facility] CBC & DIFF ERYTHROCYTE DISTRIBUTIO N WIDTH [RATIO] BY AUTOMATED COUNT 12.6 11.5 - 14.5 06/13 Specimen Type: BLOOD Comment: Automated Differentia l Performed Ordering Provider: HAYDEE LOMBARDI Report Released Date/Time: Jun 13, 2023 09:00 AM Reporting Lab: [facility] [address] Performing Lab: [facility] [address] [facility] CBC & DIFF LYMPHOCYTES [#/VOLUME] IN BLOOD BY AUTOMATED COUNT 1.72 10*3/u L 1.0 - 4.0 06/13 Specimen Type: BLOOD Comment: Automated Differentia l Performed Ordering Provider: HAYDEE LOMBARDI Report Released Date/Time: Jun 13, 2023 09:00 AM Reporting Lab: [facility] [address] Performing Lab: [facility] [address] [facility] CBC & DIFF MONOCYTES [#/VOLUME] IN BLOOD BY AUTOMATED COUNT 0.53 10*3/u L 0.1 - 1.0 06/13 Specimen Type: BLOOD Comment: Automated Differentia l Performed Ordering Provider: HAYDEE LOMBARDI Report Released Date/Time: Jun 13, 2023 09:00 AM Reporting Lab: [facility] [address] Performing Lab: [facility] [address] [facility] CBC & DIFF NEUTROPHILS [#/VOLUME] IN BLOOD BY AUTOMATED COUNT 4.91 10*3/u L 2.0 - 7.7 06/13 Specimen Type: BLOOD Comment: Automated Differentia l Performed Ordering Provider: HAYDEE LOMBARDI Report Released Date/Time: Jun 13, 2023 09:00 AM Reporting Lab: [facility] [address] Performing Lab: [facility] [address] [facility] CBC & DIFF EOSINOPHILS [#/VOLUME] IN BLOOD BY AUTOMATED COUNT 0.30 10*3/u L 0 - 0.5 06/13 Specimen Type: BLOOD Comment: Automated Differentia l Performed Ordering Provider: HAYDEE LOMBARDI Report Released Date/Time: Jun 13, 2023 09:00 AM Reporting Lab: [facility] [address] Performing Lab: [facility] [id number] [facility] CBC & DIFF BASOPHILS [#/VOLUME] IN BLOOD BY AUTOMATED COUNT 0.09 10*3/u L 0 - 0.2 06/13 Specimen Type: BLOOD Comment: Automated Differentia l Performed Ordering Provider: HAYDEE LOMBARDI Report Released Date/Time: Jun 13, 2023 09:00 AM Reporting Lab: [facility] [phone] Performing Lab: [facility] [phone] [facility] CBC & DIFF IG(META,MYE LO,PRO) 0.4 06/13 Specimen Type: BLOOD Comment: Automated Differentia l Performed Ordering Provider: HAYDEE LOMBARDI Report Released Date/Time: Jun 13, 2023 09:00 AM Reporting Lab: [facility] [id number] Performing Lab: [facility] [phone] [facility] CBC & DIFF IMMATURE GRANULOCYTE S [PRESENCE] IN BLOOD BY AUTOMATED COUNT 0.03 10*3/u L 0 - 0.1 06/13 Specimen Type: BLOOD Comment: Automated Differentia l Performed Ordering Provider: HAYDEE LOMBARDI Report Released Date/Time: Jun 13, 2023 09:00 AM Reporting Lab: [facility] [id number] Performing Lab: [facility] [phone] [facility] COMPREHEN SIVE METABOLIC PANEL+MG CREATININE [MASS/VOLUM E] IN SERUM OR PLASMA 0.9 mg/dL 0.7 - 1.2 06/05 Specimen Type: PLASMA No comment entered. Ordering Provider: HAYDEE LOMBARDI Report Released Date/Time: Jun 05, 2022 08:56 AM Reporting Lab: [facility] [phone] Performing Lab: [facility] [phone] [facility] COMPREHEN SIVE METABOLIC PANEL+MG UREA NITROGEN [MASS/VOLUM E] IN SERUM OR PLASMA 12 mg/dL 8 - 26 06/05 Specimen Type: PLASMA No comment entered. Ordering Provider: HAYDEE LOMBARDI Report Released Date/Time: Jun 05, 2022 08:56 AM Reporting Lab: [facility] [address] Performing Lab: [facility] [address] [facility] COMPREHEN SIVE METABOLIC PANEL+MG GLUCOSE [MASS/VOLUM E] IN SERUM OR PLASMA 98 mg/dL 70 - 100 06/05 Specimen Type: PLASMA No comment entered. Ordering Provider: HAYDEE LOMBARDI Report Released Date/Time: Jun 05, 2022 08:56 AM Reporting Lab: [facility] [address] Performing Lab: [facility] [address] [facility] COMPREHEN SIVE METABOLIC PANEL+MG SODIUM [MOLES/VOLU ME] IN SERUM OR PLASMA 138 mmol/L 136 - 145 06/05 Specimen Type: PLASMA No comment entered. Ordering Provider: HAYDEE LOMBARDI Report Released Date/Time: Jun 05, 2022 08:56 AM Reporting Lab: [facility] [address] Performing Lab: [facility] [address] [facility] COMPREHEN SIVE METABOLIC PANEL+MG POTASSIUM [MOLES/VOLU ME] IN SERUM OR PLASMA 4.2 mmol/L 3.5 - 5.1 06/05 Specimen Type: PLASMA No comment entered. Ordering Provider: HAYDEE LOMBARDI Report Released Date/Time: Jun 05, 2022 08:56 AM Reporting Lab: [facility] [address] Performing Lab: [facility] [address] [facility] COMPREHEN SIVE METABOLIC PANEL+MG CHLORIDE [MOLES/VOLU ME] IN SERUM OR PLASMA 105 mmol/L 98 - 107 06/05 Specimen Type: PLASMA No comment entered. Ordering Provider: HAYDEE LOMBARDI Report Released Date/Time: Jun 05, 2022 08:56 AM Reporting Lab: [facility] [address] Performing Lab: [facility] [address] [facility] COMPREHEN SIVE METABOLIC PANEL+MG CARBON DIOXIDE, TOTAL [MOLES/VOLU ME] IN SERUM OR PLASMA 24 mmol/L 22 - 29 06/05 Specimen Type: PLASMA No comment entered. Ordering Provider: HAYDEE LOMBARDI Report Released Date/Time: Jun 05, 2022 08:56 AM Reporting Lab: [facility] [address] Performing Lab: [facility] [address] [facility] COMPREHEN SIVE METABOLIC PANEL+MG CALCIUM [MASS/VOLUM E] IN SERUM OR PLASMA 9.4 mg/dL 8.4 - 10.2 06/05 Specimen Type: PLASMA No comment entered. Ordering Provider: HAYDEE LOMBARDI Report Released Date/Time: Jun 05, 2022 08:56 AM Reporting Lab: [facility] [address] Performing Lab: [facility] [address] [facility] COMPREHEN SIVE METABOLIC PANEL+MG PROTEIN [MASS/VOLUM E] IN SERUM OR PLASMA 7.1 g/dL 6.0 - 8.3 06/05 Specimen Type: PLASMA No comment entered. Ordering Provider: HAYDEE LOMBARDI Report Released Date/Time: Jun 05, 2022 08:56 AM Reporting Lab: [facility] [address] Performing Lab: [facility] [address] [facility] COMPREHEN SIVE METABOLIC PANEL+MG ALBUMIN [MASS/VOLUM E] IN SERUM OR PLASMA 4.2 g/dL 3.5 - 5.2 06/05 Specimen Type: PLASMA No comment entered. Ordering Provider: HAYDEE LOMBADRI Report Released Date/Time: Jun 05, 2022 08:56 AM Reporting Lab: [facility] [address] Performing Lab: [facility] [address] [facility] COMPREHEN SIVE METABOLIC PANEL+MG BILIRUBIN.T OTAL [MASS/VOLUM E] IN SERUM OR PLASMA 0.5 mg/dL 0.2 - 1.2 06/05 Specimen Type: PLASMA No comment entered. Ordering Provider: HAYDEE LOMBARDI Report Released Date/Time: Jun 05, 2022 08:56 AM Reporting Lab: [facility] [address] Performing Lab: [facility] [address] [facility] COMPREHEN SIVE METABOLIC PANEL+MG MAGNESIUM [MASS/VOLUM E] IN SERUM OR PLASMA 2.0 mg/dL 1.6 - 2.6 06/05 Specimen Type: PLASMA No comment entered. Ordering Provider: HAYDEE LOMBARDI Report Released Date/Time: Jun 05, 2022 08:56 AM Reporting Lab: [facility] [address] Performing Lab: [facility] [address] [facility] COMPREHEN SIVE METABOLIC PANEL+MG ANION GAP IN SERUM OR PLASMA 9 mmol/L 5 - 15 06/05 Specimen Type: PLASMA No comment entered. Ordering Provider: HAYDEE LOMBARDI Report Released Date/Time: Jun 05, 2022 08:56 AM Reporting Lab: [facility] [address] Performing Lab: [facility] [address] [facility] COMPREHEN SIVE METABOLIC PANEL+MG ALKALINE PHOSPHATASE [ENZYMATIC ACTIVITY/VO LUME] IN SERUM OR PLASMA 64 U/L 40 - 150 06/05 Specimen Type: PLASMA No comment entered. Ordering Provider: HAYDEE LOMBARDI Report Released Date/Time: Jun 05, 2022 08:56 AM Reporting Lab: [facility] [address] Performing Lab: [facility] [address] [facility] COMPREHEN SIVE METABOLIC PANEL+MG ALANINE AMINOTRANSF ERASE [ENZYMATIC ACTIVITY/VO LUME] IN SERUM OR PLASMA 25 U/L <55 - 55 06/05 Specimen Type: PLASMA No comment entered. Ordering Provider: HAYDEE LOMBARDI Report Released Date/Time: Jun 05, 2022 08:56 AM Reporting Lab: [facility] [address] Performing Lab: [facility] [address] [facility] COMPREHEN SIVE METABOLIC PANEL+MG ASPARTATE AMINOTRANSF ERASE [ENZYMATIC ACTIVITY/VO LUME] IN SERUM OR PLASMA 21 U/L <34 - 34 06/05 Specimen Type: PLASMA No comment entered. Ordering Provider: HAYDEE LOMBARDI Report Released Date/Time: Jun 05, 2022 08:56 AM Reporting Lab: [facility] [address] Performing Lab: [facility] [address] [facility] COMPREHEN SIVE METABOLIC PANEL+MG GLOMERULAR FILTRATION RATE/1.73 SQ M.PREDICTED [VOLUME RATE/AREA] IN SERUM, PLASMA OR BLOOD BY CREATININE- BASED FORMULA (CKD-EPI) >90 60 06/05 Specimen Type: PLASMA No comment entered. Ordering Provider: HAYDEE LOMBARDI Report Released Date/Time: Jun 05, 2022 08:56 AM Reporting Lab: [facility] [address] Performing Lab: [facility] [address] [facility] CBC & DIFF LEUKOCYTES [#/VOLUME] IN BLOOD BY AUTOMATED COUNT 8.33 10*3/u L 4.0 - 11.0 06/05 Specimen Type: BLOOD Comment: Automated Differentia l Performed Ordering Provider: HAYDEE LOMBARDI Report Released Date/Time: Jun 05, 2022 08:56 AM Reporting Lab: [facility] [address] Performing Lab: [facility] [address] [facility] CBC & DIFF ERYTHROCYTE S [#/VOLUME] IN BLOOD BY AUTOMATED COUNT 5.04 10*6/u L 4.6 - 6.2 06/05 Specimen Type: BLOOD Comment: Automated Differentia l Performed Ordering Provider: HAYDEE LOMBARDI Report Released Date/Time: Jun 05, 2022 08:56 AM Reporting Lab: [facility] [address] Performing Lab: [facility] [address] [facility] CBC & DIFF HEMOGLOBIN [MASS/VOLUM E] IN BLOOD 15.8 g/dL 13.5 - 17.9 06/05 Specimen Type: BLOOD Comment: Automated Differentia l Performed Ordering Provider: HAYDEE LOMBARDI Report Released Date/Time: Jun 05, 2022 08:56 AM Reporting Lab: [facility] [address] Performing Lab: [facility] [address] [facility] CBC & DIFF HEMATOCRIT [VOLUME FRACTION] OF BLOOD BY AUTOMATED COUNT 45.5 41 - 54 06/05 Specimen Type: BLOOD Comment: Automated Differentia l Performed Ordering Provider: HAYDEE LOMBARDI Report Released Date/Time: Jun 05, 2022 08:56 AM Reporting Lab: [facility] [address] Performing Lab: [facility] [address] [facility] CBC & DIFF MCV [ENTITIC VOLUME] BY AUTOMATED COUNT 90.3 fL 80 - 100 06/05 Specimen Type: BLOOD Comment: Automated Differentia l Performed Ordering Provider: HAYDEE LOMBARDI Report Released Date/Time: Jun 05, 2022 08:56 AM Reporting Lab: [facility] [address] Performing Lab: [facility] [address] [facility] CBC & DIFF MCH [ENTITIC MASS] BY AUTOMATED COUNT 31.3 pg 27 - 33 06/05 Specimen Type: BLOOD Comment: Automated Differentia l Performed Ordering Provider: HAYDEE LOMBARDI Report Released Date/Time: Jun 05, 2022 08:56 AM Reporting Lab: [facility] [address] Performing Lab: [facility] [address] [facility] CBC & DIFF MCHC [MASS/VOLUM E] BY AUTOMATED COUNT 34.7 g/dL 32.0 - 37.5 06/05 Specimen Type: BLOOD Comment: Automated Differentia l Performed Ordering Provider: HAYDEE LOMBARDI Report Released Date/Time: Jun 05, 2022 08:56 AM Reporting Lab: [facility] [address] Performing Lab: [facility] [address] [facility] CBC & DIFF PLATELETS [#/VOLUME] IN BLOOD BY AUTOMATED COUNT 419 10*3/u L 150 - 400 01/30 /2023 H Specimen Type: BLOOD Comment: Automated Differentia l Performed Ordering Provider: HAYDEE LOMBARDI Report Released Date/Time: Jun 05, 2022 08:56 AM Reporting Lab: [facility] [address] Performing Lab: [facility] [address] [facility] CBC & DIFF PLATELET MEAN VOLUME [ENTITIC VOLUME] IN BLOOD BY AUTOMATED COUNT 8.8 fL 7.4 - 10.4 06/05 Specimen Type: BLOOD Comment: Automated Differentia l Performed Ordering Provider: HAYDEE LOMBARDI Report Released Date/Time: Jun 05, 2022 08:56 AM Reporting Lab: [facility] [address] Performing Lab: [facility] [address] [facility] CBC & DIFF NEUTROPHILS /100 LEUKOCYTES IN BLOOD BY MANUAL COUNT 60.3 06/05 Specimen Type: BLOOD Comment: Automated Differentia l Performed Ordering Provider: HAYDEE LOMBARDI Report Released Date/Time: Jun 05, 2022 08:56 AM Reporting Lab: [facility] [address] Performing Lab: [facility] [address] [facility] CBC & DIFF LYMPHOCYTES /100 LEUKOCYTES IN BLOOD BY MANUAL COUNT 26.9 06/05 Specimen Type: BLOOD Comment: Automated Differentia l Performed Ordering Provider: HAYDEE LOMBARDI Report Released Date/Time: Jun 05, 2022 08:56 AM Reporting Lab: [facility] [address] Performing Lab: [facility] [address] [facility] CBC & DIFF MONOCYTES/1 00 LEUKOCYTES IN BLOOD BY AUTOMATED COUNT 7.9 06/05 Specimen Type: BLOOD Comment: Automated Differentia l Performed Ordering Provider: HAYDEE LOMBARDI Report Released Date/Time: Jun 05, 2022 08:56 AM Reporting Lab: [facility] [address] Performing Lab: [facility] [address] [facility] CBC & DIFF EOSINOPHILS /100 LEUKOCYTES IN BLOOD BY AUTOMATED COUNT 3.4 06/05 Specimen Type: BLOOD Comment: Automated Differentia l Performed Ordering Provider: HAYDEE LOMBARDI Report Released Date/Time: Jun 05, 2022 08:56 AM Reporting Lab: [facility] [address] Performing Lab: [facility] [address] [facility] CBC & DIFF BASOPHILS/1 00 LEUKOCYTES IN BLOOD BY MANUAL COUNT 1.1 06/05 Specimen Type: BLOOD Comment: Automated Differentia l Performed Ordering Provider: HAYDEE LOMBARDI Report Released Date/Time: Jun 05, 2022 08:56 AM Reporting Lab: [facility] [address] Performing Lab: [facility] [address] [facility] CBC & DIFF ERYTHROCYTE DISTRIBUTIO N WIDTH [RATIO] BY AUTOMATED COUNT 13.3 11.5 - 14.5 06/05 Specimen Type: BLOOD Comment: Automated Differentia l Performed Ordering Provider: HAYDEE LOMBARDI Report Released Date/Time: Jun 05, 2022 08:56 AM Reporting Lab: [facility] [address] Performing Lab: [facility] [address] [facility] CBC & DIFF LYMPHOCYTES [#/VOLUME] IN BLOOD BY AUTOMATED COUNT 2.24 10*3/u L 1.0 - 4.0 06/05 Specimen Type: BLOOD Comment: Automated Differentia l Performed Ordering Provider: HAYDEE LOMBARDI Report Released Date/Time: Jun 05, 2022 08:56 AM Reporting Lab: [facility] [address] Performing Lab: [facility] [address] [facility] CBC & DIFF MONOCYTES [#/VOLUME] IN BLOOD BY AUTOMATED COUNT 0.66 10*3/u L 0.1 - 1.0 06/05 Specimen Type: BLOOD Comment: Automated Differentia l Performed Ordering Provider: HAYDEE LOMBARDI Report Released Date/Time: Jun 05, 2022 08:56 AM Reporting Lab: [facility] [address] Performing Lab: [facility] [address] [facility] CBC & DIFF NEUTROPHILS [#/VOLUME] IN BLOOD BY AUTOMATED COUNT 5.03 10*3/u L 2.0 - 7.7 06/05 Specimen Type: BLOOD Comment: Automated Differentia l Performed Ordering Provider: HAYDEE LOMBARDI Report Released Date/Time: Jun 05, 2022 08:56 AM Reporting Lab: [facility] [address] Performing Lab: [facility] [address] [facility] CBC & DIFF EOSINOPHILS [#/VOLUME] IN BLOOD BY AUTOMATED COUNT 0.28 10*3/u L 0 - 0.5 06/05 Specimen Type: BLOOD Comment: Automated Differentia l Performed Ordering Provider: HAYDEE LOMBARDI Report Released Date/Time: Jun 05, 2022 08:56 AM Reporting Lab: [facility] [address] Performing Lab: [facility] [address] [facility] CBC & DIFF BASOPHILS [#/VOLUME] IN BLOOD BY AUTOMATED COUNT 0.09 10*3/u L 0 - 0.2 06/05 Specimen Type: BLOOD Comment: Automated Differentia l Performed Ordering Provider: HAYDEE LOMBARDI Report Released Date/Time: Jun 05, 2022 08:56 AM Reporting Lab: [facility] [address] Performing Lab: [facility] [address] [facility] CBC & DIFF IG(META,MYE LO,PRO) 0.4 06/05 Specimen Type: BLOOD Comment: Automated Differentia l Performed Ordering Provider: HAYDEE LOMBARDI Report Released Date/Time: Jun 05, 2022 08:56 AM Reporting Lab: [facility] [address] Performing Lab: [facility] [address] [facility] CBC & DIFF IMMATURE GRANULOCYTE S [PRESENCE] IN BLOOD BY AUTOMATED COUNT 0.03 10*3/u L 0 - 0.1 06/05 Specimen Type: BLOOD Comment: Automated Differentia l Performed Ordering Provider: HAYDEE LOMBARDI Report Released Date/Time: Jun 05, 2022 08:56 AM Reporting Lab: [facility] [address] Performing Lab: [facility] [address] [facility] [address] [facility] Vital Signs Combined list of inpatient and outpatient Vital Signs from Department of Defense and Veterans Affairs, ranging from 12 months to all on record, depending upon the facility. Vital Sign Value Date Comments Source SYSTOLIC BLOOD PRESSURE 137 06/13/2023 08:42:25 [facility] DIASTOLIC BLOOD PRESSURE 84 06/13/2023 08:42:25 [facility] PULSE OXIMETRY 98 06/13/2023 08:42:25 [facility] WEIGHT 195.3 06/13/2023 08:42:25 [facility] BMI 33kg/m2 06/13/2023 08:42:25 [facility] PAIN 0 06/13/2023 08:42:25 [facility] HEIGHT 64.5 06/13/2023 08:42:25 [facility] TEMPERATURE 97.7 06/13/2023 08:42:25 [facility] PULSE 72 06/13/2023 08:42:25 [facility] RESPIRATION 16 06/13/2023 08:42:25 [facility] Encounters Combined list of: 1) Encounters from Department of Veterans Affairs facilities going back up to thelast 18 months. 2) Encounters from the Department of Defense facilities going back up to 280 months. Location Location Details Encounter Type Encounter Number Reason For Visit Attending Provider ADM Date DC Date Status Disposition Source [place] [facility] Outpatient Encounter [id number] 07/31 [facility] [place] [facility] Outpatient Encounter [id number] 08/07 [facility] [place] [facility] Outpatient Encounter [id number] 08/31 [facility] [place] [facility] Outpatient Encounter [id number] 10/09 [facility] [place] [facility] Outpatient Encounter [id number] 10/10 [facility] [place] [facility] Outpatient Encounter [id number] 11/15 [place] [facility] [place] [facility] Outpatient Encounter [id number] 12/13 [place] [facility] [place] [facility] Outpatient Encounter [id number] 12/28 [place] [facility] HC PRO PHONE CALL 5-10 MIN [id number] Diagnos is: ICD-10- CM Z71.9 Rubberizing Mechanic ing, unspeci fied
WHITETERR A R 01/01 [facility] [place] [facility] Outpatient Encounter [id number] 01/10 [place] [facility] [place] [facility] OFF/OP CNSLTJ NEW/EST MOD 40 [id number] Diagnos is: ICD-10- CM M25.569 Pain in unspeci fied knee
TRELL LUTHER MD 01/19 [place] [facility] [place] [facility] Outpatient Encounter [id number] 01/19 [place] [facility] [place] [facility] Outpatient Encounter [id number] 01/31 [place] [facility] [place] [facility] Outpatient Encounter [id number] 02/15 [place] [facility] [place] [facility] Outpatient Encounter [id number] BUBBA OSCAR 02/15 [place] [facility] PRO PHONE CALL 5-10 MIN [id number] Diagnos is: ICD-10- CM Z71.9 Rubberizing Mechanic ing, unspeci fied
WHITE,TERR A R 02/15 [facility] [place] [facility] Outpatient Encounter [id number] 02/21 [place] [facility] [place] [facility] OFF/OP CNSLTJ NEW/EST MOD 40 [id number] Diagnos is: ICD-10- CM S62.605 A Fractur e of unsp phalanx of left ring finger, init
ZDANIELLE WILLARD BÁRBARA L 02/22 [facility] [place] [facility] THERAPEUTI C EXERCISES [id number] Diagnos is: ICD-10- CM S62.665 D Nondisp fx of dist phalanx of l rng fngr, 7thD
JES SANDRA N BROOKS AKBARG 02/22 [facility] [place] [facility] Outpatient Encounter [id number] 02/28 [facility] [place] [facility] Outpatient Encounter [id number] 03/05 [facility] [place] [facility] Outpatient Encounter [id number] 03/07 [facility] [place] [facility] Outpatient Encounter [id number] 03/07 [facility] [place] [facility] Outpatient Encounter [id number] 03/09 [facility] [place] [facility] Outpatient Encounter [id number] 03/26 [facility] [place] [facility] Outpatient Encounter [id number] 03/28 [facility] [place] [facility] Outpatient Encounter [id number] 04/10 [place] [facility] [place] [facility] Outpatient Encounter [id number] 04/10 [facility] OFF/OP EST MAY X REQ PHY/QHP [id number] Diagnos is: ICD-10- CM Z71.9 Rubberizing Mechanic ing, unspeci fied
WHITE,TERR A R 04/11 [facility] Outpatient Encounter [id number] 04/11 [place] [facility] [place] [facility] Outpatient Encounter [id number] 04/11 [facility] OFF/OP CNSLTJ NEW/EST MOD 40 [id number] Diagnos is: ICD-10- CM L60.0 Ingrowi ng nail
MAKAYLA MARTELL 04/19 [facility] OFFICE O/P EST MOD 30-39 MIN [id number] Diagnos is: ICD-10- CM H04.123 Dry eye syndrom e of bilater al lacrima l glands< br/> HUMA BAXTER 04/19 [facility] Outpatient Encounter [id number] 04/24 [place] [facility] OFFICE O/P EST LOW 20 MIN [id number] Diagnos is: ICD-10- CM L60.0 Ingrowi ng nail
MAKAYLA MARTELL 05/09 [facility] Outpatient Encounter [id number] 05/09 [facility] ORTHC/PROS TC MGMT SBSQ ENC [id number] Diagnos is: ICD-10- CM M25.374 Other instabi lity, right foot
NISEAG,MARLENY PHILLIP P 05/17 [facility] [place] [facility] Outpatient Encounter [id number] 05/31 [facility] OFFICE O/P EST MOD 30 MIN [id number] Diagnos is: ICD-10- CM Z00.8 Encount er for other general examina tion
Starr LOMBARDI EBECCA L 06/13 [facility] [place] [facility] Outpatient Encounter [id number] 06/27 [place] [facility] [place] [facility] Outpatient Encounter [id number] 07/04 [place] [facility] [place] [facility] ORTHC/PROS TC MGMT SBSQ ENC [id number] Diagnos is: ICD-10- CM M25.375 Other instabi lity, left foot
MARLENY PARRISH P 07/12 [place] [facility] [place] [facility] Outpatient Encounter [id number] 08/13 [place] [facility] [place] [facility] Outpatient Encounter [id number] 08/21 [place] [facility] [place] [facility] Outpatient Encounter [id number] 08/21 [facility] [place] [facility] OFFICE O/P EST MOD 30 MIN [id number] Diagnos is: ICD-10- CM M25.571 Pain in right ankle and joints of right foot
MAKAYLA MARTELL 10/15 [facility] [place] [facility] Outpatient Encounter [id number] 10/22 [place] [facility] [place] [facility] Outpatient Encounter [id number] 11/06 [facility] [place] [facility] ORTHC/PROS TC MGMT SBSQ ENC [id number] Diagnos is: ICD-10- CM M77.41 Metatar salgia, right foot
Arnulfo SHAHID 12/10 [facility] [place] [facility] Outpatient Encounter [id number] 12/20 [place] [facility] [place] [facility] Outpatient Encounter [id number] 12/24 [place] [facility] [place] [facility] Outpatient Encounter [id number] 01/07 [place] [facility] [place] [facility] Outpatient Encounter [id number] 01/14 [place] [facility] [place] [facility] Outpatient Encounter [id number] 01/14 [place] [facility] [place] [facility] Outpatient Encounter [id number] 01/24 [place] [facility] [place] [facility] Outpatient Encounter [id number] 01/29 [place] [facility] Social History Combined list of available smoking, tobacco, and other social history from [facility] and [facility] facilities. Social History Type Response Date Comment Sour e Tobacco smoking status [facility]-TOBACCO FORMER USER 06/13/2023 [facility] History of tobacco use [place]-TOBACCO QUIT 1 5 YRS OR MORE 06/13/2023 [facility] History of tobacco use [place]-TOBACCO FORMER USER 06/05/2022 [facility] History of tobacco use [place]-TOBACCO QUIT 1 5 YRS OR MORE 06/08/2021 [facility] History of tobacco use [place]-TOBACCO NEVER USED 06/11/2020 [facility] History of tobacco use [place]-TOBACCO QUIT 1 5 YRS OR MORE 06/05/2019 [facility] History of tobacco use [facility]-TOBACCO FORMER USER 06/26/2018 [facility] History of tobacco use FORMER TOBACCO US ER 7Y OR GREATER 05/24/2017 [facility] History of tobacco use FORMER TOBACCO US ER 7Y OR GREATER 04/19/2016 [facility] History of tobacco use FORMER TOBACCO US ER 7Y OR GREATER 04/23/2015 [facility] History of tobacco use FORMER TOBACCO US ER 7Y OR GREATER 06/15/2014 [facility] History of tobacco use FORMER TOBACCO US ER 7Y OR GREATER 11/14/2006 [facility] Plan of Care List of future care activities from [facility] facilities. Additional future care activities may be listed in the Assessment and Plan section. Date/Time Care Activity Care Activity Detail Facili ty 04/18/2024 AMBULATORY - SURGERY AMBULATORY - SURGERY [facility] 01/15/2024 Consult Order COMMUNITY CARE-C HIROPRACTIC Cons Copy Reader's Choice [facility] 01/18/2024 Imaging - General Ra diology Order KNEE LEFT 4 VIEWS STANDING LEFT [facility]ANG [facility] Advance Directives List of completed, amended, or rescinded Advance Directives on record at Department [facility] facilities. An actual copy of the Directive is not included. Date Advance Directive Provider Source 09/22/2021 ADVANCE DIRECTIVE RICHARD PLASCENCIA [facility] 09/01/2016 ADVANCE DIRECTIVE DISCUSSION ROBERTO [facility]ENCIA [facility]
--- OUTSIDE RECORDS SUMMARY | 2024-01-31 12:31 | XMS_ITS | Encounter Summary ---
Author Name [place] Organization [place] Address [address] [place] [address] Care Team Providers Care Spray Operator Name Role Phone JOSE LOMBARDI Primary Care Provider [facility] Insurance Providers: All historical and current Section Date Range: From patient's date of to the date document was created. This section includes the names of all active insurance providers for the patient. Insurance Provider Type of Coverage Plan Name Start of Policy Coverage End of Policy Coverage Group Number Member ID Insurance Provider's Telephone Number Policy Rodriguez's Name Patient's Relationship to Policy Rodriguez [facility] ([facility]) MEDICARE [facility] ([facility]) May 07, 2023 [id number] [phone] JOVANNI ANJU PATIENT [facility] ([facility]) MEDICARE [facility] ([facility]) May 07, 2018 [id number] [phone] ANJU BAIG PATIENT [facility] [facility] ([facility]) MEDICARE [facility] ([facility]) May 07, 2021 [id number] JOVANNIANJU PATIENT [facility] ([facility]) MEDICARE [facility] ([facility]) May 07, 2019 [id number] ANJU BAIG PATIENT [facility] ([facility]) MEDICARE [facility] ([facility]) May 07, 2019 [id number] ANJU BAIG PATIENT Selected Encounter This section includes the information on record at [place] for the Encounter. Date/Time Encounter Type Encounter Description Reason Provider Source May 09, 2023 01:00 PM OFFICE O/P EST LOW 20 MIN PODIATRY ICD-10-CM L60.0 [place] ZAKIA Moreau Yecenia Encounter Template Text not used by [place] Assessments - Encounter Diagnoses This section includes the primary and secondary diagnoses documented for the Encounter. Date/Time Primary/Secondary Diagnosis Diagnosis Name Provider Source May 09, 2023 01:20 PM PRIMARY Ingrlisbething ZAKIA Moreau [facility] Plan of Treatment: Future Appointments (+ 6 months) and Future Tests (+/- 45 days) The Plan of Treatment section includes future care activities for the patient from all [place] [facility]. This section includes future appointments and future orders which are active, pending or scheduled. Future Appointments This section includes appointments that were scheduled to occur 6 months from the date of the Encounter, up to a maximum of 20 appointments. The data comes from all [place] treatment facilities. Appointment Date/Time Appointment Type Appointme nt Facility Name May 17, 2023 11:00 AM AMBULATORY - NONE [facility] May 29, 2023 01:30 PM AMBULATORY - NONE [facility] Jun 13, 2023 08:30 AM AMBULATORY - MEDICINE [facility] Jul 04, 2023 10:30 AM AMBULATORY - NONE [facility] Jul 13, 2023 10:00 AM AMBULATORY - NONE [facility] Oct 16, 2023 02:00 PM AMBULATORY - SURGERY [facility] Social History: Smoking Status (Most current) [...] FORMER TOBACCO USER 7Y OR MENA R [facility] Advance Directives: All historical and current [...] September 22, 2021 ADVANCE DIRECTIVE RICHARD PLASCENCIA [facility] September 22, 2021 ADVANCE DIRECTIVE DISCUSSION [facility]ERTO PLASCENCI[facility] Sep 01, 2016 ADVANCE DIRECTIVE DISCUSSION ROBERTO PLASCENCIA [facility] Sep 01, 2016 ADVANCE DIRECTIVE RICHARD PLASCENCIA [facility] Encounter Notes: All associated encounter notes This section contains the clinical notes associated to the Encounter. Date/Time Encounter Note(s) Provider Source May 09, 2023 12:43 PM PODIATRY PROCEDURE NOTE: LOCAL TITLE: PODIATRY PROCEDURE NOTE STANDARD TITLE: PODIATRY PROCEDURE NOTE DATE OF NOTE: MAY 09, 2023@12:43 ENTRY DATE: MAY 09, 2023@12:43:09 AUTHOR: ZAKIA MARTELL COSIGNER: URGENCY: STATUS: COMPLETED Procedure: Phenol Nail Procedure Right hallux medial border Patient was identified by using full name and social security number. Procedure(s) to be performed was(were) discussed with patient and verified to be correct. Patient and/or family provided with appropriate education and patient and/or family acknowledged understanding. Site Marking: Site marked (as indicated by policy) A time out was taken prior to the procedure to verify correct patient correct procedure and correct site. Written informed consent obtained from the patient or surrogate, using the [place] approved form and process. Informed Consent Progress Note containing risks, benefits and alternatives documented. If applicable, imaging data were verified and confirmed. Patient positioning was verified prior to procedure if relevant. (supine, lateral) All necessary special equipment including implants were verified prior to procedure. Staff Participation Person(s) performing the procedure: Zakia Martell DPM Clinical History/Indications: Right hallux, medial border ingrown nail Pre-Procedure Diagnosis:Ingrown nail, right hallux Post-Procedure Diagnosis: Same as pre-op diagnosis Anesthesia: 5 cc 1% Lidocaine plain Guidewire removed: No Specimens Obtained: No Findings: consistent with ingrown nail Complications: No (If Yes, describe complications) -I have discussed the etiology of this problem and treatment options available, including slant-back debridement, partial/total avulsion, and partial/total matricectomy. I have recommended matricectomy of the right hallux medial nail border. I discussed the risks, complications, and expected recovery course with the patient. No guarantee or warranty was given or implied. Patient understands that if nail re-growth occurs, it may become symptomatic again in the future. Patient elected to proceed. Matricectomy: Consent form signed. The toe was anesthetized with 5 cc of 1% lidocaine plain after which it was prepped and draped in the usual aseptic manner. A tourniquet was applied to the toe. The offending nail border was removed, and after probing for spicules, 3 applications of phenol were applied, followed by alcohol irrigation. The tourniquet was removed, and a hyperemic response was noted to the digit. Antibiotic ointment and a light dressing was applied. Explicit oral and written postoperative instructions were dispensed. The patient was warned of signs of infection including increased warmth, redness, purulence, fever, chills. If he is experiencing any of the following, alert provider or report to the ED. /jody/ ZAKIA MARTELL DPM LINEN SORTER Signed: 05/09/2023 13:21 ZAKIA MARTELL [facility]
--- OUTSIDE RECORDS SUMMARY | 2024-01-31 12:32 | XMS_ITS | Encounter Summary ---
Author Name [place] Address [address] [place] [address] Care Team Providers Care Senior Living Advisor Name Role Phone JOSE LOMBARDI Primary Care Provider [facility] Insurance Providers: All historical and [...] Rodriguez's Name Patient's Relationship to Policy Rodriguez [facility] ([facility]) MEDICARE ADVANTAGE [facility] ([facility]) May 07, 2023 [id number] [phone] JOVANNIANJU PATIENT [facility] ([facility]) MEDICARE [facility] ([facility]) May 07, 2018 [id number] [phone] ANJU BAIG PATIENT [facility] ([facility]) MEDICARE [facility] ([facility]) May 07, 2021 [id number] JOVANNIANJU PATIENT [facility] ([facility]) MEDICARE ADVANTAGE MCR ([facility]) May 07, 2019 [id number] [phone] ANJU BAIG PATIENT [facility] ([facility]) MEDICARE ADVANTAGE MCR ([facility]) May 07, 2019 [id number] [phone] ANJU BAIG PATIENT Selected Encounter This section includes the information on record at [place] for the Encounter. Date/Time Encounter Type Encounter Description Reason Pro vider Source Jan 08, 2024 05:20 PM Outpatient Encounter ORTHO/JOINT SURG IHE Encounter Template Text not used by [place] Plan of Treatment: Future Appointments (+ 6 months) and Future Tests (+/- 45 days) The Plan of Treatment section includes future care activities for the patient from all [place] [facility]. This section includes future appointments and future orders which are active, pending or scheduled. Future Appointments This section includes appointments that were scheduled to occur 6 months from the date of the Encounter, up to a maximum of 20 appointments. The data comes from all [place] treatment facilities. Appointment Date/Time Appointment Type Appointme nt Facility Name Jan 29, 2024 08:30 AM [facility] Apr 18, 2024 08:40 AM AMBULATORY - SURGERY [facility] Active, Pending, and Scheduled Orders This section includes a listing of several types of active, pending, and scheduled orders, including clinic medications orders, diagnostic test orders, procedure orders and consult orders; where the start date of the order is 45 days before the date of the Encounter or 45 days after the date of theEncounter. The data comes from all [place] treatment [facility]. Test Date/Time Test Type Test Details Facility Name Jan 15, 2024 01:22 PM Consult Order COMMUNITY CARE-CHIROPRACTIC Cons Jewelry [facility] Jan 18, 2024 12:00 AM Imaging - General Radiology Order KNEE LEFT 4 VIEWS STANDING LEFT [facility] Social History: Smoking Status (Most current) and [...] FORMER TOBACCO USER 7Y OR GREATE R [facility] Advance Directives: All historical and current Section Date Range: From patient's date of to the date document was created. This section includes ALL of a patient's completed or amended [place] Advance and Rescinded Directives. The entries below indicate that a directive exists for the patient, but an actual copy is not included with this document. The data comes from all [place] facilities. Date Advance Directives Provider Source September 22, 2021 ADVANCE DIRECTIVE RICHARD PLASCENCIA [facility] September 22, 2021 ADVANCE DIRECTIVE DISCUSSION ROBERTO PLASCENCIA [place] [facility] Sep 01, 2016 ADVANCE DIRECTIVE DISCUSSION ROBERTO PLASCENCIAPEE [facility] Sep 01, 2016 ADVANCE DIRECTIVE RICHARD PLASCENCIA [place] [facility] Encounter Notes: All associated encounter notes This section contains the clinical notes associated to the Encounter. Date/Time Encounter Note(s) Provider Source Jan 08, 2024 05:20 PM REPORT OF CONTACT: LOCAL TITLE: PATIENT CONTACT NOTE STANDARD TITLE: REPORT OF CONTACT DATE OF NOTE: JAN 08, 2024@17:20 ENTRY DATE: JAN 08, 2024@17:20:47 AUTHOR: FERDINAND PRINGLE COSIGNER: URGENCY: STATUS: COMPLETED PATIENT CONTACT NOTE Has ADDENDA Patient contact Name of : JOVANNIANJU JEONGUR Name/Relationship of Contact if other than : Date & Time of Contact: Jan@17:20 Type of Contact: Telephone Reason for Contact: [place] would like to come in to get an injection in his knee. Please review and place RTC if appropriate. Thank you! /deena PRINGLE LEAD MSA Signed: 01/08/2024 17:22 Receipt Acknowledged By: 01/18/2024 17:35 /jody/ DEONTE LUTHER MD STAFF SURGEON 01/18/2024 ADDENDUM STATUS: COMPLETED Schedule in any [facility] or [facility] clinic. Needs x-rays. no overbook. /jody/ DEONTE LUTHER MD STAFF SURGEON Signed: 01/18/2024 17:37 Receipt Acknowledged By: * AWAITING SIGNATURE * FERDINAND PRINGLE ALEXIS L [facility]
--- OUTSIDE RECORDS SUMMARY | 2024-01-31 12:32 | XMS_ITS | Encounter Summary ---
Author Name [place] Address [address] [place] [address] Care Team Providers Care Microfilm Processor Name Role Phone JOSE LOMBARDI Primary Care Provider Unav[facility]a [facility] Insurance Providers: All historical and [...] Rodriguez's Name Patient's Relationship to Policy [facility]) MEDICARE ADVANTAGE MCR ([facility]) May 07, 2023 [id number] [phone] JOVANNIANJU PATIENT [facility] ([facility]) MEDICARE [facility] ([facility]) May 07, 2018 [id number] [phone] J[facility]ANNIANJU [facility]IENT [facility] ([facility]) MEDICARE [facility] ([facility]) May 07, 2021 [id number] [phone] JOVANNIANJU PATIENT [facility] ([facility]) MEDICARE ADVANTAGE MCR ([facility]) May 07, 2019 [id number] ANJU BAIG PATIENT [facility] ([facility]) MEDICARE ADVANTAGE MCR ([facility]) May 07, 2019 [id number] ANJU BAIG PATIENT Selected Encounter This section includes the information on record at [place] for the Encounter. Date/Time Encounter Type Encounter Description Reason Pro vider Source Jan 25, 2024 07:33 AM Outpatient Encounter COMMUNITY CARE CONSULT IHE Encounter Template Text not used by [place] Plan of Treatment: Future Appointments (+ 6 months) and Future Tests (+/- 45 days) The Plan of Treatment section includes future care activities for the patient from all [place] treatmentfacilities. This section includes future appointments and future orders which are active, pending or scheduled. Future Appointments This section includes appointments that were scheduled to occur 6 months from the date of the Encounter, up to a maximum of 20 appointments. The data comes from all [place] treatment facilities. Appointment Date/Time Appointment Type Appointme nt Facility Name Jan 29, 2024 08:30 AM [facility] Apr 18, 2024 08:40 AM AMBULATORY - SURGERY [facility] Active, Pending, and Scheduled Orders This section includes a listing of several types of active, pending, and scheduled orders, including clinic medications orders, diagnostic test orders, procedure orders and consult orders; where the start date of the order is 45 days before the date of the Encounter or 45 days after the date of theEncounter. The data comes from all [place] treatment [facility]. Test Date/Time Test Type Test Details Facility Name Jan 15, 2024 01:22 PM Consult Order COMMUNITY CARE-CHIROPRACTIC Cons Drafter [facility] Jan 18, 2024 12:00 AM Imaging - General Radiology Order KNEE LEFT 4 VIEWS STANDING LEFT [facility]ANG [facility] Social History: Smoking Status (Most current) and Tobacco Use (All prior to encounter date) This section includes the most current, and the historical, smoking and tobacco- related health factors from the [place] facility where the Encounter took place. Current Smoking Status This section includes the most current smoking, or tobacco-related health factor, from the [place] facility where the Encounter took place. Date/Time Current Smoking Status Comment Facil ity Nov 14, 2006 09:22 AM FORMER TOBACCO USER 7Y OR GREATE R [facility] Advance Directives: All historical and current Section Date Range: From patient's date of to the date document was created. This section includes ALL of a patient's completed or amended [place] Advance and Rescinded Directives. The entries below indicate that a directive exists for the patient, but an actual copy is not included with this document. The data comes from all [place] facilities. Date Advance Directives Provider Source September 22, 2021 ADVANCE DIRECTIVE RICHARD PLASCENCIA [facility] September 22, 2021 ADVANCE DIRECTIVE DISCUSSION ROBERTO PLASCENCIA [facility] Sep 01, 2016 ADVANCE DIRECTIVE DISCUSSION ROBERTO PLASCENCIA [facility] Sep 01, 2016 ADVANCE DIRECTIVE RICHARD PLASCENCIA [place] [facility] Encounter Notes: All associated encounter notes This section contains the clinical notes associated to the Encounter. Date/Time Encounter Note(s) Provider Source Jan 25, 2024 07:33 AM NONVA NOTE: LOCAL TITLE: COMMUNITY CARE PRE-AUTH LETTER (AUTOPRINT) STANDARD TITLE: NONVA NOTE DATE OF NOTE: JAN 25, 2024@07:33 ENTRY DATE: JAN 25, 2024@07:33:32 AUTHOR: LOU RESENDIZ COSIGNER: URGENCY: STATUS: COMPLETED Jan ANJU BAIG [address] [place], [place] [address] Dear ANJU BAIG, Your VA provider has referred you to a provider within the community for care. Your medical care for CHIROPRACTIC has been authorized with the community care provider listed below. DO NOT REPORT TO THE [place] [facility] Provider info: Care has been approved for the following vendor: Office name, address, and phone number: [facility] [address] [place] [address] PH: [phone] Please contact the identified provider to schedule your community appointment. If you need assistance with this appointment, please call your facility community care office [facility] Office of Community Care at [phone] during the hours of 8:30AM - 3:00PM. Please follow up with your local [facility] community care office once this is scheduled. This step is needed to ensure your referral duration is maximized and the [place] has accurate referral information for billing purposes. Authorization Number: [id number] Referral Issue Date: Jan Expiration Date: Jul (subject to change based on first appointment) If you are unable to schedule this appointment or the appointment is no longer needed, please contact the community provider above for notification/rescheduling and then call the [facility] Office of Community Care at [phone] during the hours of 8:30AM - 3:00PM. If you need additional care/services not mentioned above or your authorization has and additional care is needed, please contact your primary care provider for a new referral. To review all care/service(s) approved under your referral, please go to the following link: [employer] [email or web address]) Co-Payments: If you are required to pay a VA co-payment, you will be billed by the [place] for each authorized visit that you attend. However, you are NOT REQUIRED to make co-payments to a community provider. Thank you for the opportunity to serve you. Sincerely, [place] Community Care ([facility]) /jody/ BREA RESENDIZ Advanced Assistant Store Manager Trainee Signed: 01/25/2024 07:34 JEREMIAH RESENDIZ [facility]
--- OUTSIDE RECORDS SUMMARY | 2024-01-31 12:32 | XMS_ITS | Encounter Summary ---
Author Name [place] Address [address] [place] [address] Care Team Providers Care Cabinetmaker Maintenance Name Role Phone JOSE LOMBARDI Primary Care Provider [facility] Insurance Providers: All historical and [...] Rodriguez's Name Patient's Relationship to Policy Rodriguez [facility] ([facility]) MEDICARE ADVANTAGE MCR ([facility]) May 07, 2023 [id number] [phone] JOVANNIANUJ PATIENT [facility] ([facility]) MEDICARE [facility] ([facility]) May 07, 2018 [id number] [phone] ANJU BAIG PATIENT [facility] ([facility]) MEDICARE [facility] ([facility]) May 07, 2021 [id number] [phone] JOVANNIANJU PATIENT [facility] ([facility]) MEDICARE ADVANTAGE MCR ([facility]) May 07, 2019 [id number] ANJU BAIG PATIENT [facility] ([facility]) MEDICARE ADVANTAGE MCR ([facility]) May 07, 2019 [id number] [phone] ANJU BAIG PATIENT Selected Encounter This section includes the information on record at [place] for the Encounter. Date/Time Encounter Type Encounter Description Reason Pro vider Source Jan 30, 2024 09:58 AM Outpatient Encounter ORTHO/JOINT SURG IHE Encounter Template Text not used by [place] Plan of Treatment: Future Appointments (+ 6 months) and Future Tests (+/- 45 days) The Plan of Treatment section includes future care activities for the patient from all [place] treatmentfacilities. This section includes future appointments and future orders which are active, pending or scheduled. Future Appointments This section includes appointments that were scheduled to occur 6 months from the date of the Encounter, up to a maximum of 20 appointments. The data comes from all [place] treatment facilities. Appointment Date/Time Appointment Type Appointme nt Facility Name Apr 18, 2024 08:40 AM AMBULATORY - SURGERY [facility] Active, Pending, and Scheduled Orders This section includes a listing of several types of active, pending, and scheduled orders, including clinic medications orders, diagnostic test orders, procedure orders and consult orders; where the start date of the order is 45 days before the date of the Encounter or 45 days after the date of theEncounter. The data comes from all [place] treatment facilities. Test Date/Time Test Type Test Details Facility Name Jan 15, 2024 01:22 PM Consult Order COMMUNITY CARE-CHIROPRACTIC Cons Project Crew Worker[facility] Jan 18, 2024 12:00 AM Imaging - General Radiology Order KNEE LEFT 4 VIEWS STANDING LEFT [facility] Social History: Smoking Status (Most current) and Tobacco Use (All prior to encounter date) This section includes the most current, and the historical, smoking and tobacco- related health factors from the [place] facility where the Encounter took place. Current Smoking Status This section includes the most current smoking, or tobacco-related health factor, from the [place] facility where the Encounter took place. Date/Time Current Smoking Status Comment Facil ity Nov 14, 2006 09:22 AM FORMER TOBACCO USER 7Y OR GREATE R [facility] Advance Directives: All historical and current Section Date Range: From patient's date of to the date document was created. This section includes ALL of a patient's completed or amended [place] Advance and Rescinded Directives. The entries below indicate that a directive exists for the patient, but an actual copy is not included with this document. The data comes from all [place] facilities. Date Advance Directives Provider Source September 22, 2021 ADVANCE DIRECTIVE RICHARD PLASCENCIAK OPEE [facility] September 22, 2021 ADVANCE DIRECTIVE DISCUSSION MOISESLETICIAROBERTO SAMANOKIM Hassan [facility] Sep 01, 2016 ADVANCE DIRECTIVE DISCUSSION MOISESLETICIAROBERTO SAMANOKIM Hassan [facility] Sep 01, 2016 ADVANCE DIRECTIVE RICHARD PLASCENCIA PRACHI ROBLES [facility] Encounter Notes: All associated encounter notes This section contains the clinical notes associated to the Encounter. Date/Time Encounter Note(s) Provider Source Jan 30, 2024 09:58 AM REPORT OF CONTACT: LOCAL TITLE: APPOINTMENT SCHEDULING NOTE STANDARD TITLE: REPORT OF CONTACT DATE OF NOTE: JAN 30, 2024@09:58 ENTRY DATE: JAN 30, 2024@09:58:26 AUTHOR: MAGALY CORONADO EXP COSIGNER: URGENCY: STATUS: COMPLETED Attempted to schedule Return to clinic (RTC) Contact attempt made to [place] 1st attempt Telephone 2nd attempt Letter - Sent letter by regular [place] mail to address on file: ANJU BAIG [email or web address] [place], [place] [address] Disposition order request after Feb Left message on voice mail to call back to this number [phone] Return to [facility] ORTHO MEDICAL TECHNOLOGIST BLOOD BANK [facility] RTC on or around ( Mar 05, 2024 ) for a total of 1 appointment(s) Prerequisites: Imaging Orders Any MEDICAL TECHNOLOGIST BLOOD BANK [place] clinic. no overbook /jody/ MAGALY LOZANO Signed: 01/30/2024 09:59 MAGALY CORONADO [facility]
--- OUTSIDE RECORDS SUMMARY | 2024-01-31 12:32 | XMS_ITS | Encounter Summary ---
Author Name [place] Address [address] [place] [address] Care Team Providers Care Flavoring Oil Filterer Name Role Phone JOSE LOMBARDI Primary Care Provider [facility] [place] Insurance Providers: All historical and current Section Date Range: From patient's date of to the date document was created. This section includes the names of all active insurance providers for the patient. Insurance Provider Type of Coverage Plan Name Start of Policy Coverage End of Policy Coverage Group Number Member ID Insurance Provider's Telephone Number Policy Rodriguez's Name Patient's Relationship to Policy Rodriguez [facility] (WNR) MEDICARE ADVANTAGE MCR ([facility]) May 07, 2023 [id number] [phone] [facility] ([facility]) MEDICARE [facility] ([facility]) May 07, 2018 [id number] [phone] ANJU BAIG PATIENT [facility] ([facility]) MEDICARE [facility] ([facility]) May 07, 2021 [id number] JOVANNIANJU PATIENT [facility] ([facility]) MEDICARE [facility] ([facility]) May 07, 2019 [id number] [phone] ANJU BAIG PATIENT [facility] ([facility]) MEDICARE ADVANTAGE MCR ([facility]) May 07, 2019 [id number] ANJU BAIG PATIENT Selected Encounter This section includes the information on record at [place] for the Encounter. Date/Time Encounter Type Encounter Description Reason Pro vider Source Dec 21, 2023 02:01 PM Outpatient Encounter EVENT (HISTORICAL) IHE Encounter Template Text not used by [place] Plan of Treatment: Future Appointments (+ 6 months) and Future Tests (+/- 45 days) The Plan of Treatment section includes future care activities for the patient from all [place] treatmentfacilities. This section includes future appointments and future orders which are active, pending or scheduled. Future Appointments This section includes appointments that were scheduled to occur 6 months from the date of the Encounter, up to a maximum of 20 appointments. The data comes from all [place] treatment facilities. Appointment Date/Time Appointment Type Appointme nt Facility Name Jan 29, 2024 08:30 AM [facility] Apr 18, 2024 08:40 AM AMBULATORY - SURGERY [facility] Active, Pending, and Scheduled Orders This section includes a listing of several types of active, pending, and scheduled orders, including clinic medications orders, diagnostic test orders, procedure orders and consult orders; where the start date of the order is 45 days before the date of the Encounter or 45 days after the date of theEncounter. The data comes from all [place] treatment [facility]. Test Date/Time Test Type Test Details Facility Name Jan 15, 2024 01:22 PM Consult Order COMMUNITY CARE-CHIROPRACTIC Cons Rn Sane[facility] Choice [facility] Jan 18, 2024 12:00 AM Imaging - General Radiology Order KNEE LEFT 4 VIEWS STANDING LEFT [facility] Social History: Smoking Status (Most current) and Tobacco Use (All prior to encounter date) This section includes the most current, and the historical, smoking and tobacco- related health factors from the [place] facility where the Encounter took place. Current Smoking Status This section includes the most current smoking, or tobacco-related health factor, from the [place] facility where the Encounter took place. Date/Time [...] this document. The data comes from all [place] facilities. Date Advance Directives Provider Source September 22, 2021 ADVANCE DIRECTIVE RICHARD PLASCENCIA [facility] September 22, 2021 ADVANCE DIRECTIVE DISCUSSION ROBERTO PLASCENCIA [facility] Sep 01, 2016 ADVANCE DIRECTIVE DISCUSSION ROBERTO PLASCENCIA [facility] Sep 01, 2016 ADVANCE DIRECTIVE RICHARD PLASCENCIA [facility]
--- OUTSIDE RECORDS SUMMARY | 2024-01-31 12:32 | XMS_ITS | Encounter Summary ---
Author Name [place] Address [address] [place] [address] Care Team Providers Care Preparation Supervisor Freezing Name Role Phone JOSE LOMBARDI Primary Care Provider Unav[facility] Insurance Providers: All historical and current Section Date Range: From patient's date of to the date document was created. This section includes the names of all active insurance providers for the patient. Insurance Provider Type of Coverage Plan Name Start of Policy Coverage End of Policy Coverage Group Number Member ID Insurance Provider's Telephone Number Policy Rodriguez's Name Patient's Relationship to Policy [facility]) MEDICARE ADVANTAGE MCR ([facility]) May 07, 2023 [id number] [phone] JOVANNIANJU PATIENT [facility] ([facility]) MEDICARE [facility] ([facility]) May 07, 2018 [id number] [phone] [facility]ANJU [facility]) MEDICARE [facility] ([facility]) May 07, 2021 [id number] [phone] JOVANNIANJU PATIENT [facility] ([facility]) MEDICARE ADVANTAGE MCR ([facility]) May 07, 2019 [id number] ANJU BAIG PATIENT [facility] ([facility]) MEDICARE ADVANTAGE MCR ([facility]) May 07, 2019 [id number] ANJU BAIG PATIENT Selected Encounter This section includes the information on record at [place] for the Encounter. Date/Time Encounter Type Encounter Description Reason Pro vider Source Jan 15, 2024 01:10 PM Outpatient Encounter COMMUNITY CARE CONSULT IHE Encounter Template Text not used by [place] Plan of Treatment: Future Appointments (+ 6 months) and Future Tests (+/- 45 days) The Plan of Treatment section includes future care activities for the patient from all [place] treatmentfacilities. This section includes future appointments and [...] 2024 08:30 AM [facility] Apr 18, 2024 08:40 AM AMBULATORY - SURGERY [facility] Active, Pending, and Scheduled Orders This section includes a listing of several types of active, pending, and scheduled orders, including clinic medications orders, diagnostic test orders, procedure orders and consult orders; where the start date of the order is 45 days before the date of the Encounter or 45 days after the date of theEncounter. The data comes from all [place] treatment [facility] Test Date/Time Test Type Test Details Facility Name Jan 15, 2024 01:22 PM Consult Order COMMUNITY CARE-CHIROPRACTIC Cons In File [facility] Jan 18, 2024 12:00 [...] FORMER TOBACCO USER 7Y OR GREATE R [facility] Advance Directives: All historical and current [...] 22, 2021 ADVANCE DIRECTIVE RICHARD PLASCENCIA PRACHI ROBLES [facility] September 22, 2021 ADVANCE DIRECTIVE DISCUSSION ROBERTO PLASCENCIA [facility] Sep 01, 2016 ADVANCE DIRECTIVE DISCUSSION ROBERTO PLASCENCIA [facility] Sep 01, 2016 ADVANCE DIRECTIVE RICHARD PLASCENCIA PRACHI TRAVIS [facility] Encounter Notes: All associated encounter notes This section contains the clinical notes associated to the Encounter. Date/Time Encounter Note(s) Provider Source Jan 15, 2024 01:11 PM NONVA NOTE: LOCAL TITLE: COMMUNITY CARE-REQUEST FOR SERVICE NOTE STANDARD TITLE: NONVA NOTE DATE OF NOTE: JAN 15, 2024@13:11 ENTRY DATE: JAN 15, 2024@13:11:07 AUTHOR: SARAH JUNIOR EXP COSIGNER: URGENCY: STATUS: COMPLETED PACT: Please address Referral for additional services was received from patient's Chiropractic Provider. Please see RFAS and notes uploaded to Chiropractic, Consult #: [id number] Authorization 12/31/2023. has used 12/12 visits. All records received. Alerting PACT for review and placement of new consult if indicated. RFS and records uploaded to [facility] note dated 01/14/[address] new consult if clinically indicated, thank you. Please ensure plan of care is communicated to if new consult is not entered. [facility] CORPORATE SECRETARY to contact with questions regarding this care: Sarah Junior LPN /jody/ SARAH JUNIOR LPN LPN Signed: 01/15/2024 13:12 Receipt Acknowledged By: 01/15/2024 13:22 /jody/ JOSE LOMBARDI PHYSICIAN SARAH JUNIOR [facility]
--- OUTSIDE RECORDS SUMMARY | 2024-01-31 12:32 | XMS_ITS | Encounter Summary ---
Author Name [place] Address [address] [place] [address] Care Team Providers Care Manager Culture Name Role Phone JOSE LOMBARDI Primary Care Provider [facility] Insurance Providers: All historical and [...] Name Patient's Relationship to Policy Rodriguez BCBS [facility] (WNR) MEDICARE [facility] ([facility]) May 07, 2023 [id number] [phone] JOVANNIANJU PATIENT [facility] ([facility]) MEDICARE ADVANTAGE [facility] ([facility]) May 07, 2018 [id number] [phone] ANJU BAIG PATIENT [facility] ([facility]) MEDICARE ADVANTAGE [facility] ([facility]) May 07, 2021 [id number] [phone] JOVANNIANJU PATIENT [facility] ([facility]) MEDICARE ADVANTAGE [facility] ([facility]) May 07, 2019 [id number] ANJU BAIG PATIENT [facility] ([facility]) MEDICARE [facility] ([facility]) May 07, 2019 [id number] [phone] ANJU BAIG PATIENT Selected Encounter This section includes the information on record at [place] for the Encounter. Date/Time Encounter Type Encounter Description Reason Provider Source Dec 11, 2023 09:00 AM ORTHC/PROSTC MGMT SBSQ ENC PROSTHETICS/ORTHOT ICS ICD-10-CM M77.41 Metatarsalgia , right foot JOEY SHAHID [facility] Encounter Template Text not used by [place] Assessments - Encounter Diagnoses This section includes the primary and secondary diagnoses documented for the Encounter. Date/Time Primary/Secondary Diagnosis Diagnosis Name Provider Source Dec 21, 2023 12:51 PM PRIMARY Metatarsalgia, right foot JOEY SHAHID [facility] Plan of Treatment: Future Appointments (+ 6 months) and Future Tests (+/- 45 days) The Plan of Treatment section includes future care activities for the patient from all [place] [facility]. This section includes future appointments and future orders which are active, pending or scheduled. Future Appointments This section includes appointments that were scheduled to occur 6 months from the date of the Encounter, up to a maximum of 20 appointments. The data comes from all [place] treatment facilities. Appointment Date/Time Appointment Type Appointme nt Facility Name Jan 29, 2024 08:30 AM [facility] Apr 18, 2024 08:40 AM [facility] Active, Pending, and Scheduled Orders This section includes a listing of several types of active, pending, and scheduled orders, including clinic medications orders, diagnostic test orders, procedure orders and consult orders; where the start date of the order is 45 days before the date of the Encounter or 45 days after the date of theEncounter. The data comes from all [place] treatment facilities. Test Date/Time Test Type Test Details Facility Name Jan 15, 2024 01:22 PM Consult Order COMMUNITY CARE-CHIROPRACTIC Cons Project Scientist[facility] Choice [facility] Jan 18, 2024 12:00 AM Imaging - General Radiology Order KNEE LEFT 4 VIEWS STANDING LEFT [facility] Social History: Smoking Status (Most current) and Tobacco Use (All prior to encounter date) This section includes the most current, and the historical, smoking and tobacco- related health factors from the [place] facility where the Encounter took place. Current Smoking Status This section includes the most current smoking, or tobacco-related health factor, from the [place] facility where the Encounter took place. Date/Time Current Smoking Status Comment Dafne ity Nov 14, 2006 09:22 AM FORMER TOBACCO USER 7Y OR GREATE R [facility] Advance Directives: All historical and current Section Date Range: From patient's date of to the date document was created. This section includes ALL of a patient's completed or amended [place] Advance and Rescinded Directives. The entries below indicate that a directive exists for the patient, but an actual copy is not included with this document. The data comes from all [place] facilities. Date Advance Directives Provider Source September 22, 2021 ADVANCE DIRECTIVE RICHARD PLASCENCIA [facility] September 22, 2021 ADVANCE DIRECTIVE DISCUSSION ROBERTO PLASCENCIA [facility] Sep 01, 2016 ADVANCE DIRECTIVE DISCUSSION ROBERTO PLASCENCIA [facility] Sep 01, 2016 ADVANCE DIRECTIVE RICHARD PLASCNECIA [facility] Encounter Notes: All associated encounter notes This section contains the clinical notes associated to the Encounter. Date/Time Encounter Note(s) Provider Source Dec 21, 2023 12:43 PM ORTHOTICS PROSTHET ICS CONSULT: LOCAL TITLE: PROSTHETICS CONSULT STANDARD TITLE: ORTHOTICS PROSTHETICS CONSULT DATE OF NOTE: DEC 21, 2023@12:43 ENTRY DATE: DEC 21, 2023@12:44:04 AUTHOR: JOEY SHAHID COSIGNER: URGENCY: STATUS: COMPLETED seen for re-evaluation for shoes and custom inserts. Reports the latest shoes and inserts have helped, but he still feels inversion of the right heel and increased pain. Left heel has not been symptomatic. Podiatry also requested rocker bottom shoes. New impressions taken of for custom foot orthotics. Will use functional base with the goal of additional support of the right heel. Will order one pair of extra depth shoes with rocker bottom for to trial. If trial is successful will order second pair. in agreement with this plan. seen for evaluation, measuring, and impressions for new EDS and custom FOs. Measurements and impressions taken without incident. Shoes selected. He will be contacted for a fitting appointment when items are in and ready to be delivered. All questions answered at this time. Follow up when shoes and custom FOs arrive. Supply to be ordered: Vendor: Dr Lomas Item description: Guillermina style shoes, black, size 10 XW Part #:[id number] Quantity: 1 pair [facility] Code: L3222 Item description: rocker bottom modification for left and right shoes Part #: n/a Quantity: 2 each [facility] Code: L3400 Item description: custom FOs Part #: n/a Quantity: 2 pairs [facility] Code: L3010 add 3mm lift to RIGHT foot orthotic Deliver to: [facility]/Prosthetics Department (121) /jody/ JOEY SHAHID CAR DROPPER Signed: 12/21/2023 12:52 JOEY SHAHID [facility]
--- OUTSIDE RECORDS SUMMARY | 2024-01-31 12:32 | XMS_ITS | Encounter Summary ---
Author Name [place] Address [address] [place] [address] Care Team Providers Care Supply Chain Procurement Manager Name Role Phone JOSE LOMBARDI Primary [facility] Provider [facility] Insurance Providers: All historical and current [...] Rodriguez's Name Patient's Relationship to Policy Rodriguez [facility] (WNR) MEDICARE ADVANTAGE MCR ([facility] May 07, 2023 [id number] [phone] JOVANNIANJU PATIENT [facility] ([facility] MEDICARE [facility] ([facility] May 07, 2018 [id number] [phone] ANJU BAIG PATIENT [facility] ([facility] MEDICARE [facility] ([facility] May 07, 2021 [id number] JOVANNIANJU PATIENT [facility] ([facility] MEDICARE [facility] ([facility] May 07, 2019 [id number] ANJU BAIG PATIENT [facility] ([facility] MEDICARE ADVANTAGE MCR ([facility] May 07, 2019 [id number] ANJU BAIG PATIENT Selected Encounter This section includes the information on record at [place] for the Encounter. Date/Time Encounter Type Encounter Description Reason Pro vider Source Oct 23, 2023 12:11 PM Outpatient Encounter EVENT (HISTORICAL) IHE Encounter Template Text not used by [place] Plan of Treatment: Future Appointments (+ 6 months) and Future Tests (+/- 45 days) The Plan of Treatment section includes future care activities for the patient from all [place] [facility]. This section includes future appointments and future orders which are active, pending or scheduled. Future Appointments This section includes appointments that were scheduled to occur 6 months from the date of the Encounter, up to a maximum of 20 appointments. The data comes from all [place] treatment facilities. Appointment Date/Time Appointment Type Appointme nt Facility Name Dec 11, 2023 09:00 AM AMBULATORY - NONE [facility] Jan 29, 2024 08:30 AM AMBULATORY - NONE [facility] Apr 18, 2024 08:40 AM AMBULATORY - SURGERY [facility] Social History: Smoking Status (Most current) and Tobacco Use (All prior to encounter date) This section includes the most current, and the historical, smoking and tobacco- related health factors from the [place] facility where the Encounter took place. Current Smoking Status This section includes the most current smoking, or tobacco-related health factor, from the [place] facility where the Encounter took place. Date/Time Current Smoking Status Comment Facil ity Nov 14, 2006 09:22 AM FORMER TOBACCO USER 7Y OR GREATE R [facility] Advance Directives: All historical and current Section Date Range: From patient's date of to the date document was created. This section includes ALL of a patient's completed or amended [place] Advance and Rescinded Directives. The entries below indicate that a directive exists for the patient, but an actual copy is not included with this document. The data comes from all [facility]. Date Advance Directives Provider Source September 22, 2021 ADVANCE DIRECTIVE RICHARD PLASCENCIA [facility] September 22, 2021 ADVANCE DIRECTIVE DISCUSSION ROBERTO PLASCENCIA [facility] Sep 01, 2016 ADVANCE DIRECTIVE DISCUSSION ROBERTO PLASCENCIA [facility] Sep 01, 2016 ADVANCE DIRECTIVE RICHARD PLASCENCIA [facility]
--- OUTSIDE RECORDS SUMMARY | 2024-01-31 12:32 | XMS_ITS | Encounter Summary ---
Author Name [place] Address [address] [place] [address] Care Team Providers Care Polisher Aluminum Name Role Phone JOSE LOMBARDI Primary Care Provider [facility] Insurance Providers: All historical and current Section Date Range: From patient's date of to the date document was created. This section includes the names of all active insurance providers for the patient. Insurance Provider Type of Coverage Plan Name Start of Policy Coverage End of Policy Coverage Group Number Member ID Insurance Provider's Telephone Number Policy Rodriguez's Name Patient's Relationship to Policy Rodriguez [facility] ([facility]) MEDICARE ADVANTAGE MCR ([facility]) May 07, 2023 [id number] [phone] JOVANNIANJU PATIENT [facility] ([facility]) MEDICARE [facility] ([facility]) May 07, 2018 [id number] [phone] ANJU BAIG PATIENT [facility] ([facility]) MEDICARE [facility] ([facility]) May 07, 2021 [id number] JOVANNIANJU PATIENT [facility] ([facility]) MEDICARE ADVANTAGE MCR ([facility]) May 07, 2019 [id number] [phone] ANJU BAIG PATIENT [facility] ([facility]) MEDICARE ADVANTAGE MCR ([facility]) May 07, 2019 [id number] [phone] ANJU BAIG PATIENT Selected Encounter This section includes the information on record at [place] for the Encounter. Date/Time Encounter Type Encounter Description Reason Pro vider Source Nov 07, 2023 12:00 PM Outpatient Encounter PRIMARY CARE/MEDICINE IHE Encounter Template Text not used by [place] Plan of Treatment: Future Appointments (+ 6 months) and Future Tests (+/- 45 days) The Plan of Treatment section includes future care activities for the patient from all [place] [facility]. This section includes future appointments and future orders which are active, pending or scheduled. Future Appointments This section includes appointments that were scheduled to occur 6 months from the date of the Encounter, up to a maximum of 20 appointments. The data comes from all [place] treatment facilities. Appointment Date/Time Appointment Type Appointme nt Facility Name Dec 11, 2023 09:00 AM AMBULATORY - NONE [facility] Jan 29, 2024 08:30 AM AMBULATORY - NONE [facility] Apr 18, 2024 08:40 AM AMBULATORY - SURGERY [facility] Social History: Smoking Status (Most current) and Tobacco Use (All prior to encounter date) This section includes the most current, and the historical, smoking and tobacco- related health factors from the [place] facility where the Encounter took place. Current Smoking Status This section includes the most current smoking, or tobacco-related health factor, from the [place] facility where the Encounter took place. Date/Time Current Smoking Status Comment Facil ity Nov 14, 2006 09:22 AM FORMER TOBACCO USER 7Y OR GREATE R [facility] Advance Directives: All historical and current Section Date Range: From patient's date of to the date document was created. This section includes ALL of a patient's completed or amended [place] Advance and Rescinded Directives. The entries below indicate that a directive exists for the patient, but an actual copy is not included with this document. The data comes from all [facility]. Date Advance Directives Provider Source September 22, 2021 ADVANCE DIRECTIVE RICHARD PLASCENCIA [facility] September 22, 2021 ADVANCE DIRECTIVE DISCUSSION ROBERTO PLASCENCIA [facility] Sep 01, 2016 ADVANCE DIRECTIVE DISCUSSION ROBERTO PLASCENCIA [facility] Sep 01, 2016 ADVANCE DIRECTIVE RICHARD PLASCENCIA [facility] Encounter Notes: All associated encounter notes This section contains the clinical notes associated to the Encounter. Date/Time Encounter Note(s) Provider Source Nov 07, 2023 12:00 PM NONVA CONSULT: LOCAL TITLE: COMMUNITY CARE CONSULT RESULT CHIROPRACTIC STANDARD TITLE: NONVA CONSULT DATE OF NOTE: NOV 07, 2023@12:00 ENTRY DATE: DEC 12, 2023@09:55 AUTHOR: MERYL VALDES EXP COSIGNER: URGENCY: STATUS: COMPLETED [facility] - Scanned Document SCANNED DOCUMENT SIGNATURE NOT REQUIRED Electronically Filed: 12/12/2023 by: MERYL VALDES LPN Staff Nurse MERYL VALDES [facility]
--- OUTSIDE RECORDS SUMMARY | 2024-01-31 12:32 | XMS_ITS | Encounter Summary ---
Author Name Department [place] Address [address] [place] [address] Care Team Providers Care Phlebotomy Tech Name Role Phone JOSE LOMBARDI Primary [facility] Insurance Providers: All historical and current Section [...] Name Patient's Relationship to Policy Rodriguez BCBS [facility] (R) MEDICARE ADVANTAGE MCR ([facility]) May 07, 2023 [id number] [phone] JOVANNIANJU PATIENT [facility] ([facility]) MEDICARE [facility] ([facility]) May 07, 2018 [id number] [phone] ANJU BAIG PATIENT [facility] [facility] ([facility]) MEDICARE [facility] ([facility]) May 07, 2021 [id number] JOVANNIANJU PATIENT [facility] ([facility]) MEDICARE ADVANTAGE [facility] ([facility]) May 07, 2019 [id number] [phone] ANJU BAIG PATIENT [facility] ([facility]) MEDICARE ADVANTAGE MCR ([facility]) May 07, 2019 [id number] [phone] JOVANNI ANJU PATIENT Selected Encounter This section includes the information on record at [place] for the Encounter. Date/Time Encounter Type Encounter Description Reason Provider Source Jun 13, 2023 08:30 AM OFFICE O/P EST MOD 30 MIN PRIMARY CARE/MEDICINE ICD-10-CM Z00.8 Encounter for other general examination VIOLETA LOMBARDI Y[place] Encounter Template Text not used by [place] Assessments - Encounter Diagnoses This section includes the primary and secondary diagnoses documented for the Encounter. Date/Time Primary/Secondary Diagnosis Diagnosis Name Provider Source Jun 13, 2023 09:09 AM PRIMARY Encounter for other general examination VIOLETA LOMBARDI [facility] Jun 13, 2023 09:09 AM SECONDARY Encounter for immunization ELIZABETH CARRILLO [facility] Jun 13, 2023 09:09 AM SECONDARY Essential (primary) hypertension VIOLETA LOMBARDI [facility] Jun 13, 2023 09:09 AM SECONDARY Gastro-esophageal reflux dis with esophagitis, without bleed VIOLETA LOMBARDI [facility] Jun 13, 2023 09:09 AM SECONDARY Low back pain, unspecified VIOLETA LOMBARDI [facility] Plan of Treatment: Future Appointments (+ 6 months) and Future Tests (+/- 45 days) The Plan of Treatment section includes future care activities for the patient from all [place] treatmentlegacy healthities. This section includes future appointments and future [...] 04, 2023 10:30 AM AMBULATORY - NONE [facility] Jul 13, 2023 10:00 AM AMBULATORY - NONE [facility] Oct 16, 2023 02:00 PM AMBULATORY - SURGERY [facility] Dec 11, 2023 09:00 AM AMBULATORY - NONE [facility] Lab Results: +/- 30 days of the encounter This section includes the Chemistry and Hematology Lab Results on record with [place] for the patient. Radiology Reports and Pathology [...] Jun 13, 2023 09:00 AM Reporting Lab: [facility] [id number] Performing Lab: [facility] [id number] HEMOGLOBIN A1C 5.4 4.0-6.0 Jun 13, 2023 09:08 AM [place] [facility] COMPREHENSIVE METABOLIC PANEL+MG Specimen Type: PLASMA No comment entered. Ordering Provider: VIOLETA LOMBARDI Report Released Date/Time: Jun 13, 2023 09:00 AM Reporting Lab: [facility] [id number] Performing Lab: [facility] [id number] CREATININE 0.8 mg/dL 0.7-1.2 UREA NITROGEN 11 mg/dL 8-26 GLUCOSE 107 mg/dL H 70-100 SODIUM 139 mmol/L 136-145 POTASSIUM 4.0 mmol/L 3.5-5.1 CHLORIDE 104 mmol/L 98-107 CO2 22 mmol/L 22-29 CALCIUM 9.4 mg/dL 8.4-10.2 PROTEIN,TOTAL 7.2 g/dL 6.0-8.3 ALBUMIN 4.3 g/dL 3.5-5.2 BILIRUBIN, TOTAL 0.5 mg/dL 0.2-1.2 MAGNESIUM 1.9 mg/dL 1.6-2.6 ANION GAP 13 mmol/L 5-15 ALKALINE PHOSPHATASE 69 U/L 40-150 ALT/SGPT 22 U/L <55 AST/SGOT 17 U/L <34 .CREAT EGFR(CKD-EPI) >90 >60 Jun 13, 2023 09:08 AM [facility] CBC & DIFF Specimen Type: BLOOD Comment: Automated Differential Performed Ordering Provider: VIOLETA LOMBARDI Report Released Date/Time: Jun 13, 2023 09:00 AM Reporting Lab: [facility] [id number] Performing Lab: [facility] [id number] WBC 7.58 10*3/uL 4.0-11.0 RBC 5.02 10*6/uL 4.6-6.2 HGB 15.5 g/dL 13.5-17.9 HCT 44.2 41-54 MCV 88.0 fL 80-100 MCH 30.9 pg 27-33 MCHC 35.1 g/dL 32.0-37.5 PLT 463 10*3/uL H 150-400 MPV 8.7 fL 7.4-10.4 NEUT 64.7 40.0-80.0 LYMPHS 22.7 15.0-45.0 MONO 7.0 2.0-12.0 EOSINO 4.0 0.0-6.0 BASO 1.2 0.0-2.0 RDW 12.6 11.5-14.5 ABS LYMPH 1.72 10*3/uL 1.0-4.0 ABS MONO 0.53 10*3/uL 0.1-1.0 ABS NEUT 4.91 10*3/uL 2.0-7.7 ABS EOS 0.30 10*3/uL 0-0.5 ABS BASO 0.09 10*3/uL 0-0.2 IG(META,MYELO,P RO) 0.4 ABS IMMATURE GRAN 0.03 10*3/uL 0-0.1 Vital Signs: All taken on the encounter [...] Immunization Series Date Issued Reaction Comments COVID-19 ([facility]), MRNA, LNP -S, PF, LEANA-SUCROSE, 30 MCG/0.3 [...] Current Smoking Status Comment Facil ity Jun 13, 2023 08:30 AM VA-TOBACCO FORMER USER [facility] Tobacco Use History This section includes a history of the smoking, or tobacco-related health factors, that were collected on or before the date of the Encounter. The data comes from the [place] facility where the Encounter took place. Date/Time Smoking Status/Tobacco Use Comment F acility Jun 13, 2023 08:30 AM VA-TOBACCO QUIT 15 YRS OR MORE [facility] Jun 05, 2022 08:30 AM VA-TOBACCO FORMER USER [facility] Jun 05, 2022 08:30 AM VA-TOBACCO QUIT 15 YRS OR MORE [facility] Jun 08, 2021 08:30 AM VA-TOBACCO FORMER USER [facility] Jun 08, 2021 08:30 AM VA-TOBACCO QUIT 15 YRS OR MORE [facility] Jun 11, 2020 10:00 AM VA-TOBACCO NEVER USED [facility] Jun 05, 2019 10:23 AM VA-TOBACCO FORMER USER [facility] Jun 05, 2019 10:23 AM VA-TOBACCO QUIT 15 YRS OR MORE [facility] Jun 26, 2018 09:55 AM VA-TOBACCO FORMER USER [facility] Jun 26, 2018 09:55 AM VA-TOBACCO QUIT 15 YRS OR MORE [facility] May 24, 2017 09:03 AM FORMER TOBACCO USER 7Y OR GREATE R [facility] Apr 19, 2016 04:36 AM FORMER TOBACCO USER 7Y OR GREATE R [facility] Apr 23, 2015 05:01 AM FORMER TOBACCO USER 7Y OR GREATE R [facility] Jun 15, 2014 10:00 AM FORMER TOBACCO USER 7Y OR GREATE R [facility] Advance Directives: All historical and current [...] Provider Source September 22, 2021 ADVANCE DIRECTIVE MOISESLETICIARICHARD aHssan PRACHI ROBLES [facility] September 22, 2021 ADVANCE DIRECTIVE DISCUSSION ROBERTO PLASCENCIA [facility] [facility] Sep 01, 2016 ADVANCE DIRECTIVE DISCUSSION ROBERTO PLASCENCIA [facility] [facility] Sep 01, 2016 ADVANCE DIRECTIVE MOISESRICHARD KELLY PRACHI ROBLES [facility] Encounter Notes: All associated encounter notes This section contains the clinical notes associated to the Encounter. Date/Time Encounter Note(s) Provider Source Jun 14, 2023 08:17 AM LETTERS: LOCAL TITLE: FOLLOW UP RESULTS LETTER STANDARD TITLE: LETTERS DATE OF NOTE: JUN 14, 2023@08:17 ENTRY DATE: JUN 14, 2023@08:17:35 AUTHOR: JOSE LOMBARDI COSIGNER: URGENCY: STATUS: COMPLETED [facility] [address] [place] [address] Jun ANJU BAIG [address] [facility] [address] Dear : I am writing to inform you of the results of testing that you had done recently at the [facility]. - Complete Blood Count (red/white blood cell [...] staff or provider at the following number: [phone]. Sincerely, JOSE LOMBARDI PHYSICIAN JOSE LOMBARDI [facility] Jun 13, 2023 09:10 AM MEDICATION MGT [...] are accurate and should continue as ordered. /jody/ JOSE LOMBARDI PHYSICIAN Signed: 06/13/2023 09:10 JO[facility] LOMBARDI [facility] Jun 13, 2023 08:53 AM H & P NOTE: LOCAL TITLE: [facility] ANNUAL VISIT STANDARD TITLE: H & P NOTE DATE OF NOTE: JUN 13, 2023@08:53 ENTRY DATE: JUN 13, 2023@08:53:43 AUTHOR: JOSE LOMBARDI EXP COSIGNER: URGENCY: STATUS: COMPLETED Annual visit Non [facility] Providers: [facility] Chief complaint: Patient is here [...] followin. Pain in left knee (SNOMED CT [id number]) ACTIVE 2. Hyperlipidemia (SNOMED CT 41153576) ACTIVE 3. Screening for Malignant Neoplasms of colon ACTIVE colonoscopy 09/09--> hyperplastic polyp 4. Osteoarthritis, Knee ACTIVE 5. Dyslipidemia ACTIVE 6. Allergic rhinitis ACTIVE 7. Allergic asthma ACTIVE 8. Health maintenance alteration ACTIVE 9. Acute back pain with sciatica ACTIVE 10. Low back pain ACTIVE 11. Paresthesia of foot (SNOMED CT 713102887) ACTIVE 12. Schmorl's nodes of lumbar region [...] chf 2 sisters living BRANCH OF SERVICE: [employer] CONDITION OF THE SKELETAL SYSTEM 10% SC [...] Immunization Series Date Facility Reaction Info COVID-19 ([facility]), MRNA, LNP-S, * 1 06/05/2022 [facility] * COVID-19 ([facility]), MRNA, LNP-S, * 3 03/11/2021 [place]* <C> COVID-19 ([facility]), MRNA, LNP-S, * 2 07/07/2020 [place] <C> COVID-19 ([facility]), MRNA, LNP-S, * 1 06/16/2020 [place] <C> COVID-19 ([facility]), MRNA, LNP-S, * 4 09/20/2021 [facility] * <C> INFLUENZA (HISTORICAL) [place]* INFLUENZA, HIGH [...] [place]* INFLUENZA, UNSPECIFIED FORMULATI* 02/10/2020 [place]* NOVEL TKSLLODIN-[id number], ALL FOR* 04/08/2009 [place] PNEUMOCOCCAL CONJUGATE PCV 13 06/15/2016 [place] PNEUMOCOCCAL CONJUGATE PCV 13 [place]* PNEUMOCOCCAL POLYSACCHARIDE PPV23 06/22/2022 [facility] * PNEUMOCOCCAL POLYSACCHARIDE PPV23 No Site <C> PNEUMOCOCCAL POLYSACCHARIDE PPV23 07/02/2014 [place] PNEUMOCOCCAL POLYSACCHARIDE PPV23 05/29/2000 [place] TD(ADULT) UNSPECIFIED FORMULATION [place]* TDAP 06/15/2016 [place]* TDAP Private m* ZOSTER LIVE [employer]* ZOSTER RECOMBINANT 2 09/18/2018 [facility] * ZOSTER RECOMBINANT 1 07/15/2018 [facility] * CONTRAINDICATED No data available REFUSED ======= No data available <C> See the Detailed Immunizations Health Summary Component[DIM] for Comments * Value is truncated; see the Detailed Immunizations Health Summary Component [DIM] for complete text ====== Labs: pending /jody/ JOSE LOMBARDI PHYSICIAN Signed: 06/13/2023 09:10 JOSE LOMBARDI Jun 13, 2023 08:44 AM PRIMARY CARE NURSING NOTE: LOCAL TITLE: [facility] NURSING PROGRESS NOTE STANDARD TITLE: PRIMARY CARE [...] treatment. 2. Complete a durable power of securities attorney for health care. 3. Complete a living will. ADVANCE DIRECTIVE SCREENING: Does patient have an Advance Directive? The patient has an Advance Directive. Does the patient wish to make any changes or revoke their current Advance Directive? No changes requested at this time. Suicide Screen: C-SSRS Screening [place] Suicide Severity Rating Scale (C-SSRS) screener 1. [...] ulcers, or a wound from a medical equipment sales or Patient is bed-confined or a wheelchair-user or Patient requires assistance to transfer/change position No, Skin Screen is Negative Home Abuse/Violence Screen Is your home free of abuse and violence? Yes MOVE! Program Screen Body Mass Index (BMI)= 33.1 [place]: Collection DT Specimen Test Name Result Units Ref Range 06/08/2021 09:18 BLOOD HEMOGLOBIN A1C 5.6 % 4.0 - 6.0 [place] Hgb A1C: No data available [place] Hgb A1C: No data available Point of Care Hgb A1C: POC HGB A1C____ Outpatient Nutrition Screen Body Mass Index (BMI)= 33.1 [place]: Collection DT Specimen Test Name Result Units Ref Range 06/08/2021 09:18 BLOOD HEMOGLOBIN A1C 5.6 % 4.0 - 6.0 [place] Hgb A1C: No data available [place] Hgb A1C: No data available Point of [...] Not worried about housing near future The reports the following: Within the past 12 [...] YEARS) Date Administered: Jun 13, 2023 08:30 Customer Experience Strategist: [facility] Lot: [id number] Exp Date: October 05, 2023 [facility]: [phone] Admin Route/Site: INTRAMUSCULAR/LEFT DELTOID Dosage: 0.3mL Vaccine Information Statement(s): COVID-19 MRNA VACCINE (12+ YRS) VACCINE VIS Feb 22, 2023 (FIJIAN) Order By: Policy Administered By: Elizabeth Carrillo Vaccine administered without complications. The patient was advised to remain in the facility for 15 minutes post vaccination. /jody/ SUMANTH ANGELA LPN [facility] Signed: 06/13/2023 08:54 ELIZABETH CARRILLO [facility]
--- OUTSIDE RECORDS SUMMARY | 2024-01-31 12:32 | XMS_ITS | Encounter Summary ---
Author Name [facility] [place] Address [address] [place] [address] Care Team Providers Care Shrimp Trawler Captain Name Role Phone JOSE LOMBARDI [facility] Insurance Providers: All historical and current [...] Rodriguez's Name Patient's Relationship to Policy Rodriguez [facility] (WNR) MEDICARE ADVANTAGE MCR ([facility]) May 07, 2023 [id number] [phone] JOVANNIANJU PATIENT [facility] ([facility]) MEDICARE [facility] ([facility]) May 07, 2018 [id number] [phone] ANJU BAIG PATIENT [facility] ([place]) MEDICARE [facility] ([facility]) May 07, 2021 [id number] [phone] JOVANNIANJU PATIENT [facility] ([place]) MEDICARE [facility] ([facility]) May 07, 2019 [id number] ANJU BAIG PATIENT [facility] ([place]) MEDICARE ADVANTAGE [facility] ([facility]) May 07, 2019 [id number] [phone] ANJU BAIG PATIENT Selected Encounter This section includes the information on record at [place] for the Encounter. Date/Time Encounter Type Encounter Description Reason Pro vider Source Dec 25, 2023 02:20 PM Outpatient Encounter EVENT (HISTORICAL) IHE Encounter Template Text not used by [place] Plan of Treatment: Future Appointments (+ 6 months) and Future Tests (+/- 45 days) The Plan of Treatment section includes future care activities for the patient from all [place] treatmentfacilities. This section includes future appointments and future orders which are active, pending or scheduled. Future Appointments This section includes appointments that were scheduled to occur 6 months from the date of the Encounter, up to a maximum of 20 appointments. The data comes from all [place] treatment facilities. Appointment Date/Time Appointment Type Appointme nt Facility Name Jan 29, 2024 08:30 AM [facility] Apr 18, 2024 08:40 AM AMBULATORY - SURGERY [facility] Active, Pending, and Scheduled Orders This section includes a listing of several types of active, pending, and scheduled orders, including clinic medications orders, diagnostic test orders, procedure orders and consult orders; where the start date of the order is 45 days before the date of the Encounter or 45 days after the date of theEncounter. The data comes from all [place] treatment [facility]. Test Date/Time Test Type Test Details Facility Name Jan 15, 2024 01:22 PM Consult Order COMMUNITY CARE-CHIROPRACTIC Cons Compressor Operator Portable's Choice [facility] Jan 18, 2024 12:00 AM Imaging - General Radiology Order KNEE LEFT 4 VIEWS STANDING LEFT [facility] Social History: Smoking Status (Most current) and Tobacco Use (All prior to encounter date) This section includes the most current, and the historical, smoking and tobacco- related health factors from the [place] facility where the Encounter took place. Current Smoking Status This section includes the most current smoking, or tobacco-related health factor, from the [place] facility where the Encounter took place. Date/Time Current Smoking Status Comment Facil ity Nov 14, 2006 09:22 AM FORMER TOBACCO USER 7Y OR GREATE R [facility] Advance Directives: All historical and current Section Date Range: From patient's date of to the date document was created. This section includes ALL of a patient's completed or amended [place] Advance and Rescinded Directives. The entries below indicate that a directive exists for the patient, but an actual copy is not included with this document. The data comes from all [place] facilities. Date Advance Directives Provider Source September 22, 2021 ADVANCE DIRECTIVE RICHARD PLASCENCIA [facility] September 22, 2021 ADVANCE DIRECTIVE DISCUSSION ROBERTO PLASCENCIA [facility] Sep 01, 2016 ADVANCE DIRECTIVE DISCUSSION ROBERTO PLASCENCIA [facility] Sep 01, 2016 ADVANCE DIRECTIVE RICHARD PLASCENCIA [facility]
--- OUTSIDE RECORDS SUMMARY | 2024-01-31 12:32 | XMS_ITS | Encounter Summary ---
Author Name [facility] [place] Organization [place] Address [address] [place] [address] Care Team Providers Care Top Carrier Name Role Phone JOSE LOMBARDI [facility] Insurance Providers: All historical and [...] Rodriguez's Name Patient's Relationship to Policy Rodriguez [facility] ([facility]) MEDICARE [facility] ([facility]) May 07, 2023 [id number] [phone] JOVANNI ANJU PATIENT [facility] ([facility]) MEDICARE [facility] ([facility]) May 07, 2018 [id number] [phone] ANJU BAIG PATIENT [facility] ([facility]) MEDICARE [facility] ([facility]) May 07, 2021 [id number] [phone] JOVANNIANJU PATIENT [facility] ([facility]) MEDICARE [facility] ([facility]) May 07, 2019 [id number] ANJU BAIG PATIENT [facility] ([facility]) MEDICARE [facility] ([facility]) May 07, 2019 [id number] ANJU BAIG PATIENT Selected Encounter This section includes the information on record at [place] for the Encounter. Date/Time Encounter Type Encounter Description Reason Provider Source Oct 16, 2023 02:00 PM OFFICE O/P EST MOD 30 MIN PODIATRY ICD-10-CM M25.571 Pain in right ankle and joints of right foot RUTH MARTELL [place] Encounter Template Text not used by [place] Assessments - Encounter Diagnoses This section includes the primary and secondary diagnoses documented for the Encounter. Date/Time Primary/Secondary Diagnosis Diagnosis Name Provider Source Oct 17, 2023 02:24 PM PRIMARY Pain in right ankle and joints of right foot RUTH MARTELL [facility] Plan of Treatment: Future Appointments (+ 6 months) and Future Tests (+/- 45 days) The Plan of Treatment section includes future care activities for the patient from all [place] [facility]. This section includes future appointments and future orders which are active, pending or scheduled. Future Appointments This section includes appointments that were scheduled to occur 6 months from the date of the Encounter, up to a maximum of 20 appointments. The data comes from all [place] treatment facilities. Appointment Date/Time Appointment Type Appointme nt Facility Name Dec 11, 2023 09:00 AM AMBULATORY - NONE [facility] Jan 29, 2024 08:30 AM AMBULATORY - NONE [facility] Social History: Smoking Status (Most current) and Tobacco Use (All prior to encounter date) This section includes the most current, and the historical, smoking and tobacco- related health factors from the [facility] facility where the Encounter took place. Current Smoking Status This section includes the most current smoking, or tobacco-related health factor, from the [place] facility where the Encounter took place. Date/Time Current Smoking Status Comment Facil ity Nov 14, 2006 09:22 AM FORMER TOBACCO USER 7Y OR GREATE R [facility] Advance Directives: All historical and current Section Date Range: From patient's date of to the date document was created. This section includes ALL of a patient's completed or amended [place] Advance and Rescinded Directives. The entries below indicate that a directive exists for the patient, but an actual copy is not included with this document. The data comes from all [place] facilities. Date Advance Directives Provider Source September 22, 2021 ADVANCE DIRECTIVE RICHARD PLASCENCIA [facility] September 22, 2021 ADVANCE DIRECTIVE DISCUSSION ROBERTO PLASCENCIA [facility] Sep 01, 2016 ADVANCE DIRECTIVE DISCUSSION [facility]O PLASCENCIA [facility] Sep 01, 2016 ADVANCE DIRECTIVE RICHARD PLASCENCIA [facility] Encounter Notes: All associated encounter notes This section contains the clinical notes associated to the Encounter. Date/Time Encounter Note(s) Provider Source Oct 16, 2023 02:17 PM PODIATRY ATTENDING NOTE: LOCAL TITLE: PODIATRY CLINIC NOTE STANDARD TITLE: PODIATRY ATTENDING NOTE DATE OF NOTE: OCT 16, 2023@14:17 ENTRY DATE: OCT 16, 2023@14:17:38 AUTHOR: RUTH MARTELL EXP COSIGNER: URGENCY: STATUS: COMPLETED Subjective: 73 year old male presents to clinic for evaluation of right foot. The patient continues to have need for chiropractor adjustments of his right foot. He believes his calcaneus needs to be adjusted periodically. He currently does not have significant pain to the heel. He does endorse that when his heel is not adjusted, he has significant forefoot pain under the metatarsals. This has been increasing. His most recent set of orthotics do not seem to be alleviating his pain and discomfort. Overall he is feeling well today. He denies any nausea, vomiting, fever, chills, shortness of breath, chest pain. Problems: Pain in left knee (SCT 348054613913417) Hyperlipidemia (SCT 33607463) Screening for Malignant Neoplasms of colOsteoarthritis, Knee (ICD-9-CM 715.96) Dyslipidemia (SCT 854343030) Allergic rhinitis (SCT 32684541) Allergic asthma (SCT 101353646) Health maintenance alteration (SCT 10594906) Acute back pain with sciatica (SCT 05965Hfj back pain (SCT 562565881) Paresthesia of foot (SCT 896872620) Schmorl's nodes of lumbar region (SCT 94642147) Plantar fasciitis of right foot (SCT 122Tibialis posterior tendinitis (SCT 171699711) Enthesopathy of foot region (SCT 3623022qzlzrmmt laminoplasty (ICD-10-CM R69.) Gastro-esophageal reflux disease with esEssential hypertension (SCT 16692155) Allergies: FACILITY ALLERGY/ADR -------- No Remote Allergy/ADR Data available for this patient [facility] INFLUENZA [facility] MORPHINE [facility] PENICILLIN [facility] SULFA DRUGS Medications: Active Outpatient Medications (including [...] Neurologic: Light touch and gross sensation intact. Decreased protective sensation noted. Dermatologic: Skin is of normal texture and turgor. Temperature is warm to cool from proximal to distal. No open lesions or sores, webspaces are clean and dry. Toenails are intact. Musculoskeletal: No gross deformity noted. Arch height and contour normal. Muscle strength 5/5 for all groups tested. No pain is noted on today's examination. No obvious subluxation is noted. No pain noted to the metatarsal heads. Assessment: Right foot pain Plan: -Patient examined and evaluated. Discussed findings with patient. -Patient continues to see chiropractor for foot adjustments. I am unsure what adjustments are being made for this patient, but has to do with the heel going back in place. I do not see any reason for patient having this much instability. I do not feel there are any ruptures or laxitiy issues with patient. His heel pain is only noted after the period of adjustment and not consistent with plantar fasciitis. We will trial heel cup to stablize packing checker foot. He has had custom inserts in past, but does not feel they are currently alleviating his pain. He is having the most pain to the plantar forefoot. I suggest we trial a rocker bottom shoe to see if aiding in propulsion alleviates some of the forefoot pain he is experiencing. We will also trial new custom inserts. -The difficulty walking could possibly be associated with patient's lumbar issues. He does have evidence of neurologic disturbances on examination. -Do not have any follow up recommendations. This patient was seen approximately 3 years ago for this problem (was seen for other issues after). /jody/ RUTH MARTELL DPM HAIRSPRING VIBRATOR Signed: 10/17/2023 14:25 RUTH MARTELL [facility]
--- OUTSIDE RECORDS SUMMARY | 2024-01-31 12:32 | XMS_ITS | Encounter Summary ---
Author Name [facility] [place] Organization [place] Address [address] [place] [address] Care Team Providers Care Preparation Department Supervisor Name Role Phone JOSE LOMBARDI Primary Care Provider [facility] Insurance Providers: All historical and current [...] Rodriguez's Name Patient's Relationship to Policy Rodriguez [facility] (WNR) MEDICARE ADVANTAGE MCR ([facility]) May 07, 2023 [id number] [phone] JOVANNIANJU PATIENT [facility] ([facility]) MEDICARE [facility] ([facility]) May 07, 2018 [id number] [phone] ANJU BAIG PATIENT [facility] ([facility]) MEDICARE [facility] ([facility]) May 07, 2021 [id number] JOVANNIANJU PATIENT [facility] ([facility]) MEDICARE [facility] ([facility]) May 07, 2019 [id number] [phone] NAJU BAIG PATIENT [facility] ([facility]) MEDICARE ADVANTAGE MCR ([facility]) May 07, 2019 [id number] [phone] ANJU BAIG PATIENT Selected Encounter This section includes the information on record at [place] for the Encounter. Date/Time Encounter Type Encounter Description Reason Pro vider Source Jan 15, 2024 01:15 PM Outpatient Encounter EVENT (HISTORICAL) IHE Encounter Template Text not used by [place] Plan of Treatment: Future Appointments (+ 6 months) and Future Tests (+/- 45 days) The Plan of Treatment section includes future care activities for the patient from all [place] treatmentfacilities. This section includes future appointments and future orders which are active, pending or scheduled. Future Appointments This section includes appointments that were scheduled to occur 6 months from the date of the Encounter, up to a maximum of 20 appointments. The data comes from all [place] treatment facilities. Appointment Date/Time Appointment Type Appointme nt Facility Name Jan 29, 2024 08:30 AM [facility] Apr 18, 2024 08:40 AM AMBULATORY - SURGERY [facility] Active, Pending, and Scheduled Orders This section includes a listing of several types of active, pending, and scheduled orders, including clinic medications orders, diagnostic test orders, procedure orders and consult orders; where the start date of the order is 45 days before the date of the Encounter or 45 days after the date of theEncounter. The data comes from all [place] treatment [facility]. Test Date/Time Test Type Test Details Facility Name Jan 15, 2024 01:22 PM Consult Order COMMUNITY CARE-CHIROPRACTIC Cons Slumber Room Attendant's Choice [facility] Jan 18, 2024 12:00 AM Imaging - General Radiology Order KNEE LEFT 4 VIEWS STANDING LEFT [facility] Social History: Smoking Status (Most current) and Tobacco Use (All prior to encounter date) This section includes the most current, and the historical, smoking and tobacco- related health factors from the [place] facility where the Encounter took place. Current Smoking Status This section includes the most current smoking, or tobacco-related health factor, from the [place] facility where the Encounter took place. Date/Time Current Smoking Status Comment Facil ity Nov 14, 2006 09:22 AM FORMER TOBACCO USER 7Y OR GREATE R [facility] Advance Directives: All historical and current Section Date Range: From patient's date of to the date document was created. This section includes ALL of a patient's completed or amended [place] Advance and Rescinded Directives. The entries below indicate that a directive exists for the patient, but an actual copy is not included with this document. The data comes from all [place] facilities. Date Advance Directives Provider Source September 22, 2021 ADVANCE DIRECTIVE RICHARD PLASCENCIA [facility] September 22, 2021 ADVANCE DIRECTIVE DISCUSSION ROBERTO PLASCENCIA [facility] Sep 01, 2016 ADVANCE DIRECTIVE DISCUSSION ROBERTO PLASCENCIA [facility] Sep 01, 2016 ADVANCE DIRECTIVE RICHARD PLASCENCIA [facility]
--- OUTSIDE RECORDS SUMMARY | 2024-01-31 12:33 | XMS_ITS | Encounter Summary ---
Author Organization [place] Address [address] [place] [address] Care Team Providers Care Snout Puller Name Role Phone Maria Luisa Ross MD Primary Care P rovider Maria Luisa Ross MD Unavailable Maria Luisa Ross MD Unavailable Karthikeyan Christian MD Primary Care Provider Elenita vailable Fabien Trevino MD Unavailable [phone] Eulalio Rondon MD Primary Care Provider Fabien Trevino MD Unavailable [phone] Encounter Details Date Type Department Care Team (Late st Contact Info) Description 11/19/2017 Records - [facility] CONVERSION Scan, Non-Provider [...] on filedocumented in this encounter Care Teams Snout Puller Relationship Specialty Start Date End Date Maria Luisa Ross MD [address] [place] [address] PCP - General Internal Medicine 08/25/16 11/11/18 Maria Luisa Ross MD [address] [place] [address] PCP - Assigned PCP 10/14/17 07/09/18 Karthikeyan Christian MD [address] [place] [address] PCP - General Family Practice 11/12/18 01/18/20 Eulalio Rondon MD [facility] [address] [place] [address] PCP - General Emergency Medicine 01/19/20 Maria Luisa Ross MD [address] [place] [address] Assigned PCP 10/14/17 10/09/20 Fabien Trevino MD [address] [place] [phone] Urology 05/19/19 Fabien Trevino MD [address] [place] [phone] Assigned Surgical Provider 02/27/20 12/25/20 documented as of this encounter
--- OUTSIDE RECORDS SUMMARY | 2024-01-31 12:33 | XMS_ITS | Encounter Summary ---
Author Organization [place] Address [address] [place] [address] Care Team Providers Care Culled Fruit Packer Name Role Phone Maria Luisa Ross MD Primary Care P rovider Maria Luisa Ross MD Unavailable Maria Luisa Ross MD Unavailable Karthikeyan Christian MD Primary Care Provider Elenita vailable Fabien Trevino MD Unavailable Eulalio Rondon MD Primary Care Provider Fabien Trevino MD Unavailable Encounter Details Date Type Department Care Team (Late st Contact Info) Description 09/18/2017 Records - [facility] HE CONVERSION Scan, Non-Provider [...] on filedocumented in this encounter Care Teams Culled Fruit Packer Relationship Specialty Start Date End Date Maria Luisa Ross MD [address] [place] [address] PCP - General Internal Medicine 08/25/16 11/11/18 Maria Luisa Ross MD [address] [place] [address] PCP - Assigned PCP 10/14/17 07/09/18 Karthikeyan Christian MD [address] [place] [address] PCP - General Family Practice 11/12/18 01/18/20 Eulalio Rondon MD [facility] [address] [place] [address] PCP - General Emergency Medicine 01/19/20 Maria Luisa Ross MD [address] [place] [address] Assigned PCP 10/14/17 10/09/20 Fabien Trevino MD [address] [place] [phone] Urology 05/19/19 Fabien Trevino MD [address] [place] [phone] Assigned Surgical Provider 02/27/20 12/25/20 documented as of this encounter
--- OUTSIDE RECORDS SUMMARY | 2024-01-31 12:33 | XMS_ITS | Clinical Summary ---
Author Organization [facility] Address [address] [facility] [place] [address] Care Team Providers Care Notching Press Operator Name Role Phone Fabien Trevino MD Unavailable [phone] Eulalio Rondon MD Primary Care Provider Allergies [...] Take 5 mg by mouth daily Active [place]-3 Fatty Acids (FISH OIL) 1200 MG capsule [...] Active Problems Problem Noted Date Diagnosed Date Benign essential hypertension 08/01/2016 Hyperlipidemia LDL goal <130 08/01/2016 Cyst of left kidney 08/01/2016 Mild intermittent asthma without complication Lipoma of torso 08/01/2016 Resolved Problems Problem Noted Date Diagnosed Date Resolved Date Sacroiliitis (H24) 12/16/2019 0 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 Dennys Ragland has an advance care plan on file which needs to be updated. Patient states presence of new/updated ACP document. Copy requested Added by Anna Walters Other stiff joint, of the upper arm [...] Administration Dates Next Due Influenza (High Dose) Trivalent,PF (Fluzone) ,03/14/2016 Pneumo Conj 13-V (2010&after) 06/15/2016 Pneumococcal 23 [...] Comments Blood Pressure 132/66 06/26/2019 8:36 AM BASEBALL UMPIRE FOR LITTLE LEAGUE Pulse 72 06/26/2019 8:36 AM BASEBALL UMPIRE FOR LITTLE LEAGUE Temperature 36.8 ??C (98.2 ??F) 10/02/2017 10:23 AM C DT Respiratory Rate 24 10/02/2017 10:23 AM CDT Oxygen Saturation 98% 01/02/2019 10:56 AM CDT Inhaled Oxygen Concentration - - Weight 83.9 kg (185 lb) 06/26/2019 8:36 AM BASEBALL UMPIRE FOR LITTLE LEAGUE Height 165.1 cm (5' 5) 06/26/2019 8:36 AM BASEBALL UMPIRE FOR LITTLE LEAGUE Body Mass Index 30.79 06/26/2019 8:36 AM BASEBALL UMPIRE FOR LITTLE LEAGUE Plan of Treatment Not on file Medical Devices Implanted Type Area Associate Professor Of Music Device Identifier Shelf Expiration Date Model / [...] 05ml Implanted:Qty : 1 on 04/28/2011 at [facility] Right: Wrist 01/11/2014 [id number] / [id number] / Graft Bone Putty Dbx 01ml [id number] Implanted:Qty : 1 on 04/28/2011 at [facility] Right: Wrist 11/02/2012 595131 / [id number] / Nicol[place] Easy Clip Implanted:Qty : 1 on 04/28/2011 at [facility] Right: Wrist SONIYA SP 12/28/2015 EZ15-15 / / [id number] PABF Drill Bit Implanted: (Quantity not on file) Right: Wrist [employer] XFO / / [id number] Wire Jolie 0.045x4 Implanted:Qty : 1 on 04/28/2011 at [facility] 78.2020 / / Wire Jolie 0.062x4 Implanted:Qty : 1 on 04/28/2011 at [facility] 78.2030 / / Short Bend Plate Wrist Fusion Implanted:Qty : 1 on 01/21/2013 by Ramya Tom MD at [facility] Right: Wrist SYNTHES 04.110.1 0502 20 JAN 2013 3.5 Cortex 16mm Screw Implanted:Qty : 1 on 01/21/2013 by Ramya Tom MD at [facility] Right: Wrist SYNTHES 04.200.0 50120 JAN 2013 3.5 Cortex 18mm Screw Implanted:Qty : 2 on 01/21/2013 by Ramya Tom MD at [facility] Right: Wrist SYNTHES 04.200.0 0502 20 JAN 2013 3.5 Cortex 24 Mm Screw Implanted:Qty : 1 on 01/21/2013 by Ramya Tom MD at [facility] Right: Wrist SYNTHES 04.200.0 24 0502 20 JAN 2013 2.7 Locking 18mm Implanted:Qty : 1 on 01/21/2013 by Ramya Tom MD at [facility] Right: Wrist SYNTHES 402.218 / / [id number] 20 JAN 2013 2.7 Locking 16mm Implanted:Qty : 1 on 01/21/2013 by Ramya Tom MD at [facility] Right: Wrist SYNTHES 402.216 / / [id number] 20 JAN 2013 2.7 Locking 14mm Implanted:Qty : 2 on 01/21/2013 by Ramya Tom MD at [facility] Right: Wrist SYNTHES 402.214 / / [id number] 20 JAN 2013 Imp [place] Arthrex Corkscrew Mini Full Thread Ti Ar-1319ft Implanted:Qty : 2 on 01/21/2013 by Ramya Tom MD at [facility] Right: Wrist ARTHREX 01/04/2017 AR-1319F T / / [id number] Graft Bone Chips Canc 05ml Implanted:Qty : 1 on 01/21/2013 by Ramya Tom MD at [facility] Right: Wrist MUSCULOSKELETAL CRUZ 08/03/2015 [id number] / [id number] / Graft Soft Tissue Achilles Tendon W/O Bone [id number] Implanted:Qty : 1 on 01/21/2013 by Ramya Tom MD at [facility] Right: Wrist MUSCULOSKELETAL CRUZ 03/30/2015 656599 / [id number] / Explanted Type Area Associate Professor Of Music Device Identifier Shelf Expiration Date Model / Serial / Lot Nicollet Easy Clip Implanted:Qty: 1 on 04/28/2011 at [facility] Explanted:Qty: 1 on 01/21/2013 by Ramya Tom MD at [facility] Right: Wrist [employer] 12/28/2015 EZ15-15 / / [id number] PABF Advance Directives For more information, please contact: [phone] Documents on File Type Date Recorded Patient Arbitrator Expl anation Advance Directives and Living Will 09/07/2016 12:54 PM Health Care Directiv e 08/13/16 Healthcare Agents on File Name Relationship Healthcare Agent Relationship Communication Warren Ragland Daughter Health Care Agent Harmeet Ragland Son First Alternate Health Care Agent Care Teams Notching Press Operator Relationship Specialty Start Date End Date Eulalio Rondon MD [facility] [address] [place] [address] PCP - General Emergency Medicine 01/19/20 Fabien Trevino MD [address] [place] [address] [place] [phone] Urology 05/19/19
--- OUTSIDE RECORDS SUMMARY | 2024-01-31 12:33 | XMS_ITS | Encounter Summary ---
Author Organization [place] Address [address] [facility] [place] [address] Care Team Providers Care Sports Broadcaster Name Role Phone Maria Luisa Ross MD Primary Care P rovider Maria Luisa Ross MD Unavailable Maria Luisa Ross MD Unavailable Karthikeyan Christian MD Primary Care Provider Elenita vailable Fabien Trevino MD Unavailable Eulalio Rondon MD Primary Care Provider Fabien Trevino MD Unavailable [phone] Encounter Details Date Type Department Care Team [...] on filedocumented in this encounter Care Teams Sports Broadcaster Relationship Specialty Start Date End Date Maria Luisa Ross MD [address] [place] [address] PCP - General Internal Medicine 08/25/16 11/11/18 Maria Luisa Ross MD [address] [place] [address] PCP - Assigned PCP 10/14/17 07/09/18 Karthikeyan Christian MD [address] [place] [address] PCP - General Family Practice 11/12/18 01/18/[address] [facility] [address] [place] [address] PCP - General Emergency Medicine 01/19/20 Maria Luisa Ross MD [address] [place] [address] Assigned PCP 10/14/17 10/09/20 Fabien Trevino MD [address] [place] [phone] Urology 05/19/19 Fabien Trevino MD [address] [place] [phone] Assigned Surgical Provider 02/27/20 12/25/20 documented as of this encounter
--- OUTSIDE RECORDS SUMMARY | 2024-01-31 12:33 | XMS_ITS | Encounter Summary ---
Author Organization [place] Address [address] [facility] [place] [address] Care Team Providers Care Insurance Agents Supervisor Name Role Phone Silviano Alfaro MD Primary Care Provider [phone] Maria Luisa Ross MD Primary Care P rovider Maria Luisa Ross MD Unavailable Maria Luisa Ross MD Unavailable Karthikeyan Christian MD Primary Care Provider Elenita vailable Fabien Trevino MD Unavailable Eulalio Rondon MD Primary Care Provider Fabien Trevino MD Unavailable Encounter Details Date Type Department Care Team (Late st Contact Info) Description 06/26/2016 Telephone [facility] [address] [place] [address] Alona Gutiérrez, RN Social History Tobacco Use [...] if similar pain returns to discuss plan. ACT CENTER ENGINEER documented in this encounter Plan of Treatment Not on file documented as of this encounter Visit Diagnoses Not on filedocumented in this encounter Care Teams Insurance Agents Supervisor Relationship Specialty Start Date End Date Silviano Alfaro MD PCP - General Family Practice 01/03/13 08/24/16 Maria Luisa Ross MD [address] [place] [address] PCP - General Internal Medicine 08/25/16 11/11/18 Maria Luisa Ross MD [address] [place] [address] PCP - Assigned PCP 10/14/17 07/09/18 Karthikeyan Christian MD [address] [address] PCP - General Family Practice 11/12/18 01/18/20 Eulalio Rondon MD [address] [address] PCP - General Emergency Medicine 01/19/20 Maria Luisa Ross MD [address] [place] [address] Assigned PCP 10/14/17 10/09/20 Fabien Trevino MD [address] [place] [phone] Urology 05/19/19 Fabien Trevino MD [address] [place] [phone] Assigned Surgical Provider 02/27/20 12/25/20 documented as of this encounter
--- OUTSIDE RECORDS SUMMARY | 2024-01-31 12:33 | XMS_ITS | Referral Summary ---
Author Organization [place] Address [address] [facility] [place] [address] Care Team Providers Care Comedian Name Role Phone Fabien Trevino MD Unavailable [phone] Eulalio Rondon MD Primary Care Provider Allergies [...] Take 5 mg by mouth daily Active [place]-3 Fatty Acids (FISH OIL) 1200 MG capsule [...] Comments Blood Pressure 132/66 06/26/2019 8:36 AM MOVEMAN Pulse 72 06/26/2019 8:36 AM MOVEMAN Temperature 36.8 ??C (98.2 ??F) 10/02/2017 10:23 AM C DT Respiratory Rate 24 10/02/2017 10:23 AM CDT Oxygen Saturation 98% 01/02/2019 10:56 AM CDT Inhaled Oxygen Concentration - - Weight 83.9 kg (185 lb) 06/26/2019 8:36 AM MOVEMAN Height 165.1 cm (5' 5) 06/26/2019 8:36 AM MOVEMAN Body Mass Index 30.79 06/26/2019 8:36 AM MOVEMAN Plan of Treatment Not on file Medical Devices Implanted Type Area Arts Administrator Device Identifier Shelf Expiration Date Model / [...] 05ml Implanted:Qty : 1 on 04/28/2011 at [facility] Right: Wrist 01/11/2014 219221 / [id number] / Graft Bone Putty Dbx 01ml [id number] Implanted:Qty : 1 on 04/28/2011 at [facility] Right: Wrist 11/02/2012 108576 / [id number] / [place] Easy Clip Implanted:Qty : 1 on 04/28/2011 at [facility] Right: Wrist JASON SP 12/28/2015 EZ15-15 / / [id number] PABF Drill Bit Implanted: (Quantity not on file) Right: Wrist [employer] XFO / / [id number] Wire Jolie 0.045x4 Implanted:Qty : 1 on 04/28/2011 at [facility] 78.2020 / / Wire Jolie 0.062x4 Implanted:Qty : 1 on 04/28/2011 at [facility] 78.2030 / / Short Bend Plate Wrist Fusion Implanted:Qty : 1 on 01/21/2013 by Ramya Tom MD at [facility] Right: Wrist SYNTHES 04.110.1 51 0502 20 JAN 2013 3.5 Cortex 16mm Screw Implanted:Qty : 1 on 01/21/2013 by Ramya Tom MD at [facility] Right: Wrist SYNTHES 04.200.0 50120 JAN 2013 3.5 Cortex 18mm Screw Implanted:Qty : 2 on 01/21/2013 by Ramya Tom MD at [facility] Right: Wrist SYNTHES 04.200.0 18 0502 20 JAN 2013 3.5 Cortex 24 Mm Screw Implanted:Qty : 1 on 01/21/2013 by Ramya Tom MD at [facility] Right: Wrist SYNTHES 04.200.0 24 0502 20 JAN 2013 2.7 Locking 18mm Implanted:Qty : 1 on 01/21/2013 by Ramya Tom MD at [facility] Right: Wrist SYNTHES 402.218 / 0502 20 JAN 2013 2.7 Locking 16mm Implanted:Qty : 1 on 01/21/2013 by Ramya Tom MD at [facility] Right: Wrist SYNTHES 402.216 / / 0502 20 JAN 2013 2.7 Locking 14mm Implanted:Qty : 2 on 01/21/2013 by Ramya Tom MD at [facility] Right: Wrist SYNTHES 402.214 / / 0502 20 JAN 2013 Imp [place] Arthrex Corkscrew Mini Full Thread Ti Ar-1319ft Implanted:Qty : 2 on 01/21/2013 by Ramya Tom MD at [facility] Right: Wrist ARTHREX 01/04/2017 AR-1319F T / / [id number] Graft Bone Chips Canc 05ml Implanted:Qty : 1 on 01/21/2013 by Ramya Tom MD at [facility] Right: Wrist MUSCULOSKELETAL CRUZ 08/03/2015 078280 / [id number] / Graft Soft Tissue Achilles Tendon W/O Bone [id number] Implanted:Qty : 1 on 01/21/2013 by Ramya Tom MD at [facility] Right: Wrist MUSCULOSKELETAL CRUZ 03/30/2015 440067 / [id number] / Explanted Type Area Arts Administrator Device Identifier Shelf Expiration Date Model / Serial / Lot Jason Easy Clip Implanted:Qty: 1 on 04/28/2011 at [facility] Explanted:Qty: 1 on 01/21/2013 by Ramya Tom MD at [facility] Right: Wrist [employer] 12/28/2015 EZ15-15 / / [id number] PABF Advance Directives For more information, please contact: [phone] Documents on File Type Date Recorded Patient High Lighter Expl anation Advance Directives and Living Will 09/07/2016 12:54 PM Health Care Directiv e 08/13/16 Healthcare Agents on File Name Relationship Healthcare Agent Relationship Communication Warren Ragland Daughter Health Care Agent Harmeet Ragland Son First Alternate Health Care Agent Care Teams Comedian Relationship Specialty Start Date End Date Eulalio Rondon MD [facility] [address] [place] [address] PCP - General Emergency Medicine 01/19/20 Fbaien Trevino MD [address] [phone] Urology 05/19/19
--- OUTSIDE RECORDS SUMMARY | 2024-01-31 12:33 | XMS_ITS | Clinical Summary ---
Author Organization [facility] Address [address] [place] [address] Care Team Providers Care Oven Roaster Name Role Phone Needs Pcp, Assignment Primary Care Provider [phone] Source Comments You are receiving this document as you are listed as the primary care provider,follow-up provider, or the patient has been referred to you for consultation.This is in compliance with the Medicare andMedicaid EHR Incentive Program,which states Providers who transition their patient to another setting of careor provider of care or refers their patient to another provider of care shouldprovide summary care record for each transition of care or referral. [employer] Allergies Active Allergy Reactions Criticality Noted Date [...] C) Take 1 Tablet by mouth. Active [place]-3 Fatty Acids (FISH OIL) 1200 MG capsule [...] sclerotic cataract of both eyes 10/12/19 21 Overview (10/11/2020): Added automatically from request for surgery [id number] Hx of LASIK 10/11/2020 Overview (10/11/2020): Added automatically from request for surgery [id number] Urinary retention 10/10/2017 Unspecified cord compression 10/09/2017 Advance care planning 08/01/2016 Overview (08/17/2020): Advance Care Planning 08/01/2016: ACP Review of [...] 07/02/2014, 05/29/2000 COVID-19 Vaccine (3 - season) 2024 07/07/2020, 06/16/2020 Influenza (#1) 2024 01/26/2021, 10/2019, 02/10/2020, Additional history exists RSV (1 - 1-dose 75+ series) 2025 DTaP/Tdap/Td (2 - Tdap) 06/15/2026 06/15/2016 HepA [...] this topic Medical Devices Implanted Type Area Supervisor Gas Meter Repair Device Identifier Shelf Expiration Date Model / Serial / Lot Lens Iol Tecdorian Zcb00 24.5 - [id number] Implanted:Qty: 1 on 11/25/2020 by Sarah Kidd MD at [facility] DEVICE Right: EYE [employer] 04/17/2024 ZCB00.245 / [id number] / NA Lens Iol Tecnis Zcb00 24.5 - [id number] Implanted:Qty: 1 on 12/16/2020 by Sarah Kidd MD at [facility] DEVICE Left: EYE [employer] 08/24/2024 ZCB00.245 / [id number] / NA Procedures Procedure Name Priority Date/Time Associated Diagnosis Comments LIPID PANEL & DIRECT LDL (IF NEEDED) Routine 04/11/2001 3:58 PM PRECISION MECHANICAL INSTRUMENT MAKER from Last 3 Months or Most Recently Relevant to Health Maintenance Results * (ABNORMAL) Lipid Panel and Direct LDL(If Needed) (04/11/2001 3:58 PM PRECISION MECHANICAL INSTRUMENT MAKER) Hours Fasting 11.5 8.0 - 24.0 Hours HP CONVERSION Cholesterol/HDL Ratio Screen 5.1 No normal range HP CONVERSION Cholesterol 220(HH) 125 - 199 mg/dL HP CONVERSION HDL Cholesterol 43 40 - 60 mg/dL HP CONVERSION Triglycerides 187 0 - 199 mg/dL HP CONVERSION LDL Calculated 140(HH) 66 - 129 mg/dL HP CONVERSION Comment:Fasting status adequ ate. 04/11/2001 3:58 PM PRECISION MECHANICAL INSTRUMENT MAKER Conner Hdz MD LAB_1 HP CONVERSION from Last 3 Months or Most Recently Relevant to Health Maintenance Care Teams Oven Roaster Relationship Specialty Start Date End Date Needs Pcp, [place] [address] PCP - General 10/12/20
--- OUTSIDE RECORDS SUMMARY | 2024-01-31 12:33 | XMS_ITS | Encounter Summary ---
Author Organization [place] Address [address] [facility] [place] [address] Care Team Providers Care Wire Frame Dipper Name Role Phone Silviano Alfaro MD Primary Care Provider Maria Luisa Ross MD Primary Care P rovider Maria Luisa Ross MD Unavailable Maria Luisa Ross MD Unavailable Karthikeyan Christian MD Primary Care Provider Elenita vailable Fabien Trevino MD Unavailable [phone] Eulalio Rondon MD Primary Care Provider Fabien Trevino MD Unavailable Encounter Details Date Type Department Care Team (Late st Contact Info) Description 06/20/2016 Telephone [facility] [address] [place] [address] Alona Gutiérrez, RN Social History Tobacco Use [...] Alona Gutiérrez RN - 06/20/2016 10:40 AM CONSTRUCTION ENGINEER Felicia at DR. Trevino's office informed of this visit events of [address] Galindo. IR to follow as needed. TRUCTION ENGINEER documented in this encounter Plan of Treatment Not on file documented as of this encounter Visit Diagnoses Not on filedocumented in this encounter Care Teams Wire Frame Dipper Relationship Specialty Start Date End Date Silviano Alfaro MD PCP - General Family Practice 01/03/13 08/24/16 Maria Luisa Ross MD [address] [place] [address] PCP - General Internal Medicine 08/25/16 11/11/18 Maria Luisa Ross MD [address] [place] [address] PCP - Assigned PCP 10/14/17 07/09/18 Karthikeyan Christian MD [address] [place] [address] PCP - General Family Practice 11/12/18 01/18/20 Eulalio Rondon MD [facility] [address] [place] [address] PCP - General Emergency Medicine 01/19/20 Maria Luisa Ross MD [address] [facility] [address] Assigned PCP 10/14/17 10/09/20 Fabien Trevino MD [address] [facility] [address] [place] [phone] Urology 05/19/19 Fabien Trevino MD [address] [place] [phone] Assigned Surgical Provider 02/27/20 12/25/20 documented as of this encounter
--- OUTSIDE RECORDS SUMMARY | 2024-01-31 12:33 | XMS_ITS | Clinical Summary ---
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 Pulse 74 04/07/2023 8:45 AM MAINTENANCE ENGINEER OIL FIELD Temperature 36.8 ??C (98.3 ??F) 04/07/2023 8:45 AM CS T Respiratory Rate 20 04/07/2023 8:45 AM MAINTENANCE ENGINEER OIL FIELD Oxygen Saturation 98% 04/07/2023 8:45 AM MAINTENANCE ENGINEER OIL FIELD Inhaled Oxygen Concentration - - Weight 83.9 kg (185 lb) 04/07/2023 8:45 AM MAINTENANCE ENGINEER OIL FIELD Height 161 cm (5' 3.39) 10/05/2014 6:50 [...] 65+ (1 of 1 - PCV) 2015 COVID-19 vaccine series (2022- season) 2024 06/13/2023, 06/05/2022 Influenza for age 65+ 01/06/2024 Advance Directives * Full Code (Latest Code Status on File) Date Activated Date Inactivated Comments 10/05/2014 9:50 AM 10/05/2014 3:57 PM * Full Code Date Activated Date Inactivated Comments 10/05/2014 5:46 AM 10/05/2014 9:50 AM Care Teams Information Assurance Engineer Relationship Specialty Start Date End Date Maria Luisa Ross MD [address] [place] [address] PCP - General Internal Medicine 02/12/17
--- NOTE | 2024-01-31 12:59 | ED.WOUNDLAC ---
HPI - Wound/Laceration General Date Seen: 01/31/24 Chief Complaint: Laceration/Wound Stated Complaint: LT finger laceration Time Seen by Provider: 01/31/24 12:10 Source: patient Mode of arrival: ambulatory Limitations: no limitations History of Present Illness HPI narrative: Patient is a 73-year-old male presenting to the emergency department for laceration to his left 2nd finger. States he got caught be draining a metal grinder and the wheel. This happened shortly prior to arrival. Last tetanus was in 2017. Denies any numbness or weakness that finger last time and states he has full range of motion. No other injuries noted. Related Data Home Medications ?Medication ?Instructions ?Recorded ?Confirmed amlodipine 5 mg tablet 5 mg PO DAILY 11/23/21 12/31/23 multivitamin 1 tab PO QDAY 11/23/21 12/31/23 omega-3 acid ethyl esters 1 gram 1 cap PO QDAY 11/23/21 12/31/23 capsule pravastatin 40 mg tablet 40 mg PO .Bedtime 11/23/21 12/31/23 albuterol sulfate 90 mcg/actuation 2 puff inhalation Q4-6H PRN 01/17/23 12/31/23 aerosol inhaler turmeric 400 mg capsule mg PO .every other day 12/31/23 12/31/23 Previous Rx's ?Medication ?Instructions ?Recorded albuterol sulfate 2.5 mg/3 mL 2.5 mg (3 mL) inhalation QID PRN 11/28/23 (0.083 %) solution for nebulization bronchospasm #90 mL cephalexin 500 mg capsule 500 mg PO QID #20 caps 01/31/24 Allergies Allergy/AdvReac Type Severity Reaction Status Date / Time clavulanic acid Allergy Severe Hives Verified 12/31/23 10:58 [From Augmentin] Sulfa (Sulfonamide Allergy Severe hives Verified 12/31/23 10:58 Antibiotics) amoxicillin [From Augmentin] Allergy Verified 12/31/23 10:58 house dust mite Allergy Verified 12/31/23 10:58 mold Allergy Verified 12/31/23 10:58 fentanyl AdvReac Severe Nausea Verified 12/31/23 10:58 Review of Systems Narrative: Pertinent systems reviewed and were negative unless stated in HPI PFSH PFSH Medical History (Updated 01/31/24 @ 13:24 by Antonio P Colony, DO) COPD (chronic obstructive pulmonary disease) ?J44.9 - Chronic obstructive pulmonary disease, unspecified (ICD-10) Tubular adenoma ?D36.9 - Benign neoplasm, unspecified site (ICD-10) Dysphagia ?R13.10 - Dysphagia, unspecified (ICD-10) Abdominal pain ?R10.9 - Unspecified abdominal pain (ICD-10) Low back pain ?M54.50 - Low back pain, unspecified (ICD-10) Lumbar foraminal stenosis ?M48.061 - Spinal stenosis, lumbar region without neurogenic claudication (ICD-10) Sacroiliitis ?M46.1 - Sacroiliitis, not elsewhere classified (ICD-10) Sinusitis ?J32.9 - Chronic sinusitis, unspecified (ICD-10) Diverticulitis ?K57.92 - Diverticulitis of intestine, part unspecified, without perforation or abscess without bleeding (ICD-10) Colon cancer screening ?Z12.11 - Encounter for screening for malignant neoplasm of colon (ICD-10) Colonoscopy planned Accelerated essential hypertension ?I10 - Essential (primary) hypertension (ICD-10) Encounter for postoperative care ?Z48.89 - Encounter for other specified surgical aftercare (ICD-10) Encounter for follow-up ?Z09 - Encounter for follow-up examination after completed treatment for conditions other than malignant neoplasm (ICD-10) Surgical History S/P arthroscopic partial medial meniscectomy (~2007) ?Z98.890 - Other specified postprocedural states (ICD-10) H/O nasal septoplasty (08/19/21) ?Z98.890 - Other specified postprocedural states (ICD-10) History of tonsillectomy ?Z90.89 - Acquired absence of other organs (ICD-10) H/O hernia repair (02/02/14) ?Z98.890 - Other specified postprocedural states (ICD-10) ?Z87.19 - Personal history of other diseases of the digestive system (ICD-10) S/P spinal surgery ?Z98.890 - Other specified postprocedural states (ICD-10) History of surgery on right wrist ?Z98.890 - Other specified postprocedural states (ICD-10) History of surgery on left wrist ?Z98.890 - Other specified postprocedural states (ICD-10) History of arthroscopy of left knee (08/13/13) ?Z98.890 - Other specified postprocedural states (ICD-10) Family History Father Coronary artery disease Social History (Updated 07/20/22 @ 13:44 by Sandra Escobedo ~ [facility], [facility]) Narrative: Durable power of real estate attorney for healthcare- completed on 11/25/18, reviewed and sent for scanning to electronic medical record on 05/24/21 Smoking Status: Former smoker (quit in 1999) What tobacco products do you use: cigarettes Smoking quit date/years: >15 years ago Do you use any of these nicotine containing products: None Second hand tobacco smoke exposure: No Non-prescribed substance use: denies use Little interest or pleasure in doing things: not at all Feeling down, depressed, or hopeless: not at all Exam Narrative: Exam Narrative: Const: Well-nourished, Well-developed, in mild distress Eyes: PERRL, no conjunctival injection, and symmetrical lids HENT: Atraumatic external nose and ears. Moist mucous membranes. Extremity: Left 2nd finger has a avulsion of skin to the distal lateral aspect in a triangle shape measuring 2 x 2 x 1 cm. Distal volar area has a 2.5 x 3.5 x 0.75 cm laceration with a flap still attached to the 4th side MSK:Extremities w/o deformity, Normal Active ROM Skin: Warm, Dry. Neuro: Normal Muscle tone, No focal neurological deficits. Psych: Awake, Alert, & Oriented x3. Appropriate mood and affect. Const: Vital Signs, click to edit/add: Vital Signs - 24 hr 01/31/24 12:13 Temperature 98 F Pulse Rate [Pulse Oximeter] 86 Respiratory Rate 18 Blood Pressure [Ri ght Upper Arm] 123/76 Pulse Oximetry 97 Course Vital Signs Vital signs: Initial Vital Signs Temperature 98 F 01/31/24 12:13 Temperature Source Temporal Artery Scan 01/31/24 12:13 Pulse Rate 86 01/31/24 12:13 Respiratory Rate 18 01/31/24 12:13 Blood Pressure 123/76 01/31/24 12:13 Blood Pressure Mean 91 01/31/24 12:13 Pulse Oximetry 97 01/31/24 12:13 Vital Signs Temperature 98 F 01/31/24 12:13 Pulse Rate 86 01/31/24 12:13 Respiratory Rate 18 01/31/24 12:13 Blood Pressure 123/76 01/31/24 12:13 Pulse Oximetry 97 01/31/24 12:13 Temperature 98 F 01/31/24 12:13 Pulse Rate 86 01/31/24 12:13 Respiratory Rate 18 01/31/24 12:13 Blood Pressure 123/76 01/31/24 12:13 Pulse Oximetry 97 01/31/24 12:13 MDM - Wound/Laceration MDM Narrative Medical decision making narrative: Patient presents for laceration and skin avulsion to his left index finger. There was a flap of skin that was able use to cover up a good portion of the area and 6 sutures were placed. The smaller triangle shaped skin avulsion was covered. The area of the sutures was also covered. I updated his Tdap. Patient is otherwise doing well and tolerated the procedure well. I will put him on prophylactic antibiotics so as this was a relatively ureter wound and a cannot close it up completely due to the avulsed skin. He is agreeable to this plan. Of note he states he is allergic to Augmentin but Augmentin only and has had other beta lactams without issue Discharge Plan Discharge Clinical Impression: Avulsion of skin of finger, Finger laceration Patient Disposition: Home, Self-Care Condition: Stable Instructions: Finger Laceration (ED) Additional Instructions: Follow-up with your primary care provider or urgent care in the next 7 days to have the 6 sutures removed. For next 6 months, once sutures are removed, whenever you go outside put a dab of sunscreen over the laceration site to improve scar appearance. Topical antibiotics are not necessary at this time. Patient can shower but do not submerge the laceration until sutures are removed. There will be some redness around the area was noticing gets bigger be re-evaluated for infection as finger infections can travel quickly. If he notice your entire finger becomes swollen like a sausage, is painful to extend completely, or is painful when he tapped the palmar side return immediately for re-evaluation. Take the antibiotics as directed Prescriptions: New cephalexin 500 mg capsule 500 mg PO QID Qty: 20 0RF No Action albuterol sulfate 90 mcg/actuation HFA aerosol inhaler 2 puff inhalation Q4-6H PRN turmeric 400 mg capsule PO .every other day pravastatin 40 mg tablet 40 mg PO .Bedtime omega-3 acid ethyl esters 1 gram capsule 1 cap PO QDAY multivitamin Tablet 1 tab PO QDAY amlodipine 5 mg tablet 5 mg PO DAILY albuterol sulfate 2.5 mg /3 mL (0.083 %) solution for nebulization 2.5 mg inhalation QID PRN (Reason: bronchospasm) Qty: 90 0RF Follow Up/Referrals: Eulalio Rondon MD [Primary Care Provider] - Stand Alone Forms: [facility] Info Instructions Procedures Laceration Left 2nd finger: Name of person performing procedure: Antonio Grace Site: hand (Distal 2nd finger) Side (If applicable): left Size (cm): 3 Description: flap, irregular and contaminated Depth: simple, single layer Local Anesthetic: lidocaine 1% (Digital nerve block) Amount of anesthesia used (mL): 5 Pre-repair: wound explored, irrigated extensively and deep structures intact Skin layer closed with: nylon Size (cm): 5-0 Number of sutures: 6 Technique: simple, interrupted
[2024-01-31] MEDS: TETANUS/DIPHTH/PERTUSSIS 0.5 ML SYRINGE IM (13:48)
== END 2024-01-31 14:07 | disposition home or self-care (01) ==
PROVIDERS: Emergency Provider Student in an Organized Health Care Education/Training Program; PCP Internal Medicine
DX: S61.211A Laceration without foreign body of left index finger without damage to nail, initial encounter (principal); W23.0XXA Caught, crushed, jammed, or pinched between moving objects, initial encounter
CPT/HCPCS: 12001; 90471; 90715; 99282; 99283

== ENCOUNTER 2024-06-11 07:54 | Outpatient (CLI) | payer MEDICARE, SELFPAY ==
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
== END 2024-06-11 07:55 | disposition home or self-care (01) ==
LOC: CT 07:56
PROVIDERS: PCP Internal Medicine; Visit Provider Internal Medicine
DX: Z12.2 Encounter for screening for malignant neoplasm of respiratory organs (principal); R91.8 Other nonspecific abnormal finding of lung field; Z72.0 Tobacco use; K80.20 Calculus of gallbladder without cholecystitis without obstruction
CPT/HCPCS: 71271

== ENCOUNTER 2024-08-07 10:00 | Outpatient (CLI) | payer MEDICARE, SELFPAY | END 2024-08-07 10:01 | disposition home or self-care (01) | PROVIDERS: PCP Internal Medicine; Visit Provider Family Medicine | DX: R10.32 Left lower quadrant pain (principal) | CPT/HCPCS: 80053; 86140 ==

== ENCOUNTER 2024-10-14 10:15 | Outpatient (RCR) | payer MEDICARE, SELFPAY | END 2024-12-10 15:39 | disposition home or self-care (01) | PROVIDERS: PCP Internal Medicine; Visit Provider Physician Assistant Surgical | DX: S32.020D Wedge compression fracture of second lumbar vertebra, subsequent encounter for fracture with routine healing (principal); Z51.89 Encounter for other specified aftercare | CPT/HCPCS: 97110; 97140; 97162 ==

== ENCOUNTER 2024-10-30 13:34 | Outpatient (CLI) | payer MEDICARE, SELFPAY ==
--- NOTE | 2024-10-30 14:00 | CRLHL7_ITS ---
For Patients: As a result of the Century Cures Act, medical imaging exams and procedure reports are released immediately into your electronic medical record. You may view this report before your referring provider. If you have questions, please contact your health care provider. XR DXA BONE MINERAL DENSITY (BMD) Current height (in): 65.0. Weight (lb): 178.0. Menopause age: N/A. Ethnicity: White. Reason for exam: Other specified disorders of bone density. 1. Have you had a previous hip or vertebral fracture? No. 2. Have you had any fractures during your adult life which did not result from significant trauma (e.g., auto accident)? No. 3. Did either of your parents have a hip fracture? No. 4. Do you smoke? No. 5. Have you ever taken Glucocorticoids? No. 6. Do you have rheumatoid arthritis? No. 7. Do you have secondary osteoporosis? No. 8. Do you drink 3 or more alcoholic drinks per day? No. 9. Are you being treated for osteoporosis? No. 10. Have you ever taken any of the following medications: Actonel, Evista, Fosamax, Miacalcin, Reclast, Boniva, Forteo, HRT (i.e. estrogen/hormone therapy), Protelos, Prolia, Vitamin D, Calcium, other ??? please specify. ANSWER: Yes, vitamin D. 11. Do you have any of the following medical conditions: Anorexia or bulimia, asthma or emphysema, end stage renal disease, hyperparathyroidism, any seizure disorders, cancer, inflammatory bowel diseases, hysterectomy, other ??? please specify. ANSWER: Yes, asthma or emphysema. 12. What was your maximum height (inches)? 65. 13. Do you perform weight bearing exercise regularly? No. 14. Do you regularly consume dairy products? Yes. 15. Do you drink caffeinated beverages? Yes. TECHNIQUE: Bone mineral density study was performed using the [employer]. FINDINGS: The results of the study expressed as bone mineral density (BMD) are as follows: Lumbar spine L1, L3, L4: BMD: 0.875 g/cm2. T-score: -2.0. Z-score: -0.9 Neck Left: BMD: 0.699 g/cm2. T-score: -1.7. Z-score: -0.4 Right: BMD: 0.709 g/cm2. T-score: -1.6. Z-score: -0.3 Total Left: BMD: 0.929 g/cm2. T-score: -0.7. Z-score: 0.1 Right: BMD: 0.957 g/cm2. T-score: -0.5. Z-score: 0.3 IMPRESSION: Osteopenia. FRAX 10-year Fracture Risk Major Osteoporotic Fracture: 6.9 percent Hip Fracture: 2.0 percent Reported Risk Factors: [place] () Neck BMD = 0.699, BMI = 29.6 Robbie Hoskins M.D. Diagnostic Radiologist [email or web address] Transcribed: 5:08 pm DW/Dictated by: Robbie Hoskins MD @ 10/30/2024 3:54:00 PM (Electronically Signed)
== END 2024-10-30 13:35 | disposition home or self-care (01) ==
LOC: RAD 13:35
PROVIDERS: PCP Internal Medicine; Visit Provider Internal Medicine
DX: M85.80 Other specified disorders of bone density and structure, unspecified site (principal); M85.89 Other specified disorders of bone density and structure, multiple sites
CPT/HCPCS: 77080

== ENCOUNTER 2024-12-05 07:50 | Outpatient (CLI) | payer MEDICARE, SELFPAY ==
--- NOTE | 2024-12-05 08:00 | CRLHL7_ITS ---
For Patients: As a result of the Century Cures Act, medical imaging exams and procedure reports are released immediately into your electronic medical record. You may view this report before your referring provider. If you have questions, please contact your health care provider. INDICATION: Chronic sinusitis. COMPARISON: 07/13/2021. TECHNIQUE: Noncontrast CT of the paranasal sinuses. FINDINGS: Bilateral mastoid sinuses are clear. Os middle complexes are patent. Slight nasal septal deviation the left measuring approximately 2 minutes midline. Paradoxical turn of the right middle turbinate. Postop changes of inferior ethmoidectomies. There is mild mucosal thickening within the remaining ethmoid air cells. There is mild mucosal thickening along the floor of the left frontal sinus with partial opacification the left frontal ethmoidal recess. Remaining frontal sinuses are clear Sphenoid sinuses are clear. Sphenoid ostia patent. Partial opacification of the posterior inferior left mastoid air cells. Remaining bilateral mastoid air cells are clear. No facial fractures. Normal orbits bilaterally. IMPRESSION: 1. Mild mucosal thickening within the residual ethmoid air cells. Mild mucosal thickening along the floor of the left frontal sinus. 2. Remaining visualized paranasal sinuses are clear. 3. Small left mastoid effusion Please note that all CT scans at this facility use dose modulation, iterative reconstruction, and/or weight-based dosing when appropriate to reduce radiation dose to as low as reasonably achievable. Dictated by Cristhian Benton MD @ 12/06/2024 8:18:46 AM (Electronically Signed)
== END 2024-12-05 07:51 | disposition home or self-care (01) ==
LOC: CT 07:51
PROVIDERS: PCP Internal Medicine; Visit Provider Otolaryngology
DX: J32.9 Chronic sinusitis, unspecified (principal)
CPT/HCPCS: 70486

== ENCOUNTER 2025-02-04 10:45 | Outpatient (RCR) | payer MEDICARE, SELFPAY | END 2025-02-04 11:31 | disposition home or self-care (01) | PROVIDERS: PCP Internal Medicine; Visit Provider Nurse Practitioner | DX: M54.50 Low back pain, unspecified (principal); M54.16 Radiculopathy, lumbar region; M47.817 Spondylosis without myelopathy or radiculopathy, lumbosacral region; Z51.89 Encounter for other specified aftercare | CPT/HCPCS: 97110; 97140; 97161; 97535 ==